=== PATIENT | male | born 1970 | race Caucasian/White ===

== ENCOUNTER 2017-02-26 13:45 | Inpatient (IN) | payer OTHER ==
[2017-02-26 18:08] VITALS: BMI 23.7
--- NOTE | 2017-02-26 19:32 | HP ---
COWS - Scale Resting Pulse: 0= [place] 80 or Below Sweatin= Chills/Flushing Restless Observation: 3= Extraneous Movement Pupil Size: 1= Pupils >than Normal Bone or Joint Aches: 2= Severe Diffuse Aches Runny Nose/ Eye Tearin= Runny Nose/Eyes GI Upset > 30mins: 2= Nausea/Diarrhea Tremor Observation: 2= Slight Tremor Visible Yawning Observation: 0= None Anxiety or Irritability: 2=Irritable/Anxious Goose Flesh Skin: 0=Smooth Skin COWS Score: 15 CIWA Score - CIWA Score Nausea/Vomitin-Mild Nausea/No Vomiting Muscle Tremors: 4-Moderate,w/Arms Extend Anxiety: 4-Mod. Anxious/Guarded Agitation: 4-Moderately Restless Paroxysmal Sweats: 1-Minimal Palms Moist Orientation: 3-Disoriented Date>2 days Tacttile Disturbances: 0-None Auditory Disturbances: 0-None Visual Disturbances: 0-None Headache: 1-Very Mild CIWA-Ar Total Score: 18 Admission ROS S - HPI Chief Complaint: withdrawal sx Allergies/Adverse Reactions: Allergies Allergy/AdvReac Type Severity Reaction Status Date / Time pantoprazole sodium Allergy Severe Difficulty Verified 02/26/17 18:26 [From Protonix] Breathing Iodinated Contrast Media - Allergy Intermediate Difficulty Verified 02/26/17 18: 26 Oral and Breathing History of Present Illness: 46 years old male with long history of alcohol, opiate cocaine nicotine dependence, has hypertension, hypercholesterol, asthma copd diabetes ii and bipolar chronic pancreatitis is admitted to detox Exam Limitations: No Limitations - Ebola screening Have you traveled outside of the country in the last 21 days: No (N) Have you had contact with anyone from an Ebola affected area: No Have you been sick,other than usual withdrawal symptoms: No Do you have a fever: No - Review of Systems Constitutional: Chills, Changes in sleep, Weight Stable EENT: reports: No Symptoms Reported Respiratory: reports: No Symptoms reported Cardiac: reports: No Symptoms Reported GI: reports: Diarrhea, Poor Appetite, Poor Fluid Intake, Indigestion, Abdominal cramping : reports: No Symptoms Reported Musculoskeletal: reports: Back Pain, Joint Pain, Muscle Pain, Neck Pain Integumentary: reports: No Symptoms Reported Neuro: reports: Tremors Endocrine: reports: No Symptoms Reported Hematology: reports: Blood Clots Psychiatric: reports: Judgement Intact Other Systems: Reviewed and Negative Patient History - Patient Medical History Hx Anemia: No Hx Asthma: Yes Hx Chronic Obstructive Pulmonary Disease (COPD): Yes Hx Cancer: No Hx Cardiac Disorders: No Hx Congestive Heart Failure: No Hx Hypertension: Yes Hx Hypercholesterolemia: Yes Hx Pacemaker: No HX Cerebrovascular Accident: No Hx Seizures: No Hx Dementia: No Hx Diabetes: Yes (IDDM) Hx Gastrointestinal Disorders: Yes (acid reflux) Hx Liver Disease: No Hx Genitourinary Disorders: No Hx Sexually Transmitted Disorders: No Hx Renal Disease (ESRD): No Hx Thyroid Disease: No Hx Human Immunodeficiency Virus (HIV): No (negative) Hx Hepatitis C: No (negative) Hx Depression: No Hx Suicide Attempt: No Hx Bipolar Disorder: Yes (AND ANXIETY) Hx Schizophrenia: No - Patient Surgical History Past Surgical History: Yes Hx Neurologic Surgery: No Hx Cataract Extraction: No Hx Cardiac Surgery: No Hx Lung Surgery: No Hx Breast Surgery: No Hx Breast Biopsy: No Hx Abdominal Surgery: Yes (splenectomy in 2008) Hx Appendectomy: No Hx Cholecystectomy: Yes (lap cholecystectomy in 2009) Hx Genitourinary Surgery: No Hx Orthopedic Surgery: Yes (left hip replacement 03/04) Other Surgical History: also had surgery of right hip in 2004,but has to be removed,limping on ambu Anesthesia Reaction: No - PPD History Previous Implant?: Yes Documented Results: Positive w/o proof Implanted On Prior R Admission?: No PPD to be Administered?: No - Smoking Cessation Smoking history: Current every day smoker Have you smoked in the past 12 months: Yes Aproximately how many cigarettes per day: 20 Cigars Per Day: 0 Hx Chewing Tobacco Use: No Initiated information on smoking cessation: Yes 'Breaking Loose' booklet given: 02/26/17 - Substance & Tx. History Hx Alcohol Use: Yes Hx Substance Use: Yes Substance Use Type: Alcohol, Cocaine, Opiates Hx Substance Use Treatment: Yes - Substances Abused Alcohol Route: Oral Frequency: Daily Amount used: LIQUOR- 1 PINT, BEER- 2 SIX PACK Age of first use: 40 Date of Last Use: 02/25/17 Heroin Route: Inhalation Frequency: Daily Amount used: 13 BAGS Age of first use: 40 Date of Last Use: 02/25/17 Cocaine Route: Inhalation Frequency: Daily Amount used: 2 BAGS Age of first use: 40 Date of Last Use: 02/25/17 Family Disease History - Family Disease History Family Disease History: Other: Father ( ), Mother (HTN, HYPERLIPIDIMIA) Admission Physical Exam [facility] - Vital Signs Vital Signs: Vital Signs - 24 hr 02/26/17 18:06 Temperature 98.4 F Pulse Rate 69 Respiratory 20 Rate Blood Pressure 156/81 - Physical General Appearance: Yes: Appropriately Dressed, Mild Distress, Thin, Tremorous, Irritable, Sweating, Anxious HEENTM: Yes: Hearing grossly Normal, Normal ENT Inspection, Normocephalic, Normal Voice Respiratory: Yes: Chest Non-Tender, No Respiratory Distress, No Accessory Muscle Use, Hyperresonant, Inspiration Neck: Yes: Supple, Trachea in good position Breast: Yes: Breasts Symetrical Cardiology: Yes: Regular Rhythm, Regular Rate, S1, S2 Abdominal: Yes: Non Tender, Soft, Increased Bowel Sounds Genitourinary: Yes: Within Normal Limits Back: Yes: Normal Inspection Musculoskeletal: Yes: Back pain, Muscle Pain Extremities: Yes: Non-Tender, Tremors, Other (right leg shorter than the left) Neurological: Yes: Alert, Normal Response, Depressed Affect Integumentary: Yes: Warm Lymphatic: Yes: Within Normal Limits - Diagnostic (1) Alcohol dependence with uncomplicated withdrawal Status: Acute (2) Opioid dependence with withdrawal Status: Acute (3) Asthma Status: Chronic (4) Essential hypertension Status: Chronic (5) Hypercholesterolemia Status: Chronic (6) Nicotine dependence Status: Acute Qualifiers: Nicotine product type: cigarettes Substance use status: in withdrawal Qualified Code(s): F17.213 - Nicotine dependence, cigarettes, with withdrawal (7) limping on ambulation Status: Chronic Comment: cane for ambulation (8) Positive PPD, treated Status: Resolved (9) Diabetes mellitus, type II, insulin dependent Status: Acute (10) COPD (chronic obstructive pulmonary disease) Status: Chronic Qualifiers: COPD type: emphysema Emphysema type: unilateral Qualified Code(s ): J43.0 - Unilateral pulmonary emphysema [MacLeod's syndrome] (11) GERD (gastroesophageal reflux disease) Status: Chronic Qualifiers: Esophagitis presence: without esophagitis Qualified Code(s): K21.9 - Gastro-esophageal reflux disease without esophagitis (12) Blood clot in vein Status: Acute (13) Bipolar II disorder Status: Suspected Cleared for Admission [facility] - Detox or Rehab [facility] Level of Care: Medically Managed Detox Regimen/Protocol: Methadone/Librium [facility] Breath Alcohol Content Breath Alcohol Content: 0 Urine Drug Screen - Results Drug Screen Negative: No Urine Drug Screen Results: GIACOMO-Cocaine, OPI-Opiates, MTD-Methadone
[2017-02-26] MEDS ORDERED: P-EPHED 60MG/TRIPROLIDI 2.5MG TABLET PO PRN (19:37)
[2017-02-26] MEDS ORDERED: MAG HYDROX/AL HYDROX/SIMETH 30 ML UNIT-DOSE CUP PO PRN (19:37)
[2017-02-26] MEDS ORDERED: NICOTINE POLACRILEX 4 MG GUM BC PRN (19:37)
[2017-02-26] MEDS ORDERED: LOPERAMIDE HCL 2 MG CAPSULE PO PRN (19:37)
[2017-02-26] MEDS ORDERED: MAGNESIUM CITRATE 300 ML BOTTLE PO PRN (19:37)
[2017-02-26] MEDS ORDERED: guaiFENesin/D-METHORPHAN HB 10 ML UNIT-DOSE CUPS PO PRN (19:37)
[2017-02-26] MEDS ORDERED: MENTHOL/PHENOL 1 EACH UD MM PRN (19:37)
[2017-02-26] MEDS ORDERED: METHADONE HCL 10 MG TABLET (FOR DETOX USE ONLY) PO ONE ×2 (19:37→23:00)
[2017-02-26] MEDS ORDERED: MAGNESIUM HYDROX 2400MG/30ML ORAL SUSPENSION 30 ML CUP PO PRN (19:37)
[2017-02-26] MEDS ORDERED: ALBUTEROL SO4 6.7 GM HFA INHALER IH PRN (19:39)
[2017-02-26] MEDS: amLODIPine BESYLATE 10 MG TABLET (FP) PO SCH (21:37)
[2017-02-26] MEDS: ENALAPRIL MALEATE 10 MG TABLET (FP) PO SCH (21:37)
[2017-02-26] MEDS: chlordiazePOXIDE HCL 25 MG CAPSULE PO PRN (21:37)
[2017-02-26] MEDS: ATORVASTATIN CA 40 MG TABLET (FP) PO SCH (22:28)
[2017-02-26] MEDS: APIXABAN 5 MG TABLET PO SCH (22:28)
[2017-02-26] MEDS: BUDESONIDE/FORMETEROL FUMARATE 80/4.5 mcg INHALER IH SCH (22:28)
[2017-02-26] MEDS: THIAMINE HCL 100 MG TABLET (FP) PO SCH (22:28)
[2017-02-26] MEDS: chlordiazePOXIDE HCL 25 MG CAPSULE PO SCH (22:28)
[2017-02-26] MEDS: INSULIN DETEMIR 100 UNITS/ML MDV SQ SCH (22:29)
[2017-02-26] MEDS: diphenhydrAMINE HCL 50 MG CAPSULE PO PRN (22:31)
[2017-02-26] MEDS: LIPASE/PROTEASE/AMYLASE 6,000 UNIT CAPSULE PO SCH (22:32)
[2017-02-26] MEDS: MONTELUKAST NA 5 MG TAB.CHEW PO SCH (22:32)
[2017-02-26] MEDS: INSULIN SLIDING SCALE (NOVOLOG) 1 VIAL SQ SCH (22:32)
[2017-02-26 23:26] LABS: URINE APPEARANCE CLEAR; URINE BILIRUBIN NEGATIVE (NEGATIVE); URINE BLOOD NEGATIVE (NEGATIVE); URINE COLOR LTYELLOW; URINE GLUCOSE (UA) NEGATIVE (NEGATIVE); URINE KETONE NEGATIVE (NEGATIVE); URINE LEUK ESTERASE NEGATIVE (NEGATIVE); URINE NITRITE NEGATIVE (NEGATIVE); URINE PROTEIN NEGATIVE (NEGATIVE); URINE UROBILINOGEN NEGATIVE E.U./dl (0.2-1.0)
[2017-02-27] MEDS: ACETAMINOPHEN 325 MG TABLET (FP) PO PRN ×2 (00:47→10:30)
[2017-02-27] MEDS: diphenhydrAMINE HCL 50 MG CAPSULE PO PRN (00:47)
[2017-02-27] MEDS: chlordiazePOXIDE HCL 25 MG CAPSULE PO SCH ×4 (05:27→22:15)
[2017-02-27] MEDS: glyBURIDE 5 MG TABLET (UD) PO SCH (07:43)
[2017-02-27] MEDS: INSULIN SLIDING SCALE (NOVOLOG) 1 VIAL SQ SCH ×4 (08:00→23:36)
[2017-02-27] MEDS ORDERED: METHADONE HCL 10 MG TABLET (FOR DETOX USE ONLY) PO SCH (10:00)
[2017-02-27 10:01] LABS: MCH 29.3 pg (25.7-33.7); MCHC 32.9 g/dl (32.0-35.9); MEAN PLT VOLUME 8.5 fl (7.5-11.1); PLATELET COUNT 422 K/MM3 (134-434); RDW 14.6 % (11.9-15.9); WHITE BLOOD COUNT 11.6 K/mm3 (4.0-10.0)
[2017-02-27] MEDS: ASPIRIN 81 MG CHEWABLE TABLETS PO SCH (10:22)
[2017-02-27] MEDS: LIPASE/PROTEASE/AMYLASE 6,000 UNIT CAPSULE PO SCH ×3 (10:23→17:15)
[2017-02-27] MEDS: ENALAPRIL MALEATE 10 MG TABLET (FP) PO SCH (10:27)
[2017-02-27] MEDS: BUDESONIDE/FORMETEROL FUMARATE 80/4.5 mcg INHALER IH SCH ×2 (10:27→22:15)
[2017-02-27] MEDS: PRENATAL VITAMINS W/ FOLIC ACID TABLET (FP) PO SCH (10:27)
[2017-02-27] MEDS: amLODIPine BESYLATE 10 MG TABLET (FP) PO SCH (10:29)
[2017-02-27] MEDS: NICOTINE 21 MG/24 HOURS TOPICAL PATCH TD SCH (10:29)
[2017-02-27] MEDS: APIXABAN 5 MG TABLET PO SCH ×2 (10:33→22:15)
[2017-02-27 10:48] LABS: ALBUMIN 3.7 g/dl (3.4-5.0); ALK PHOS 94 U/L (45-117); ANION GAP 12 (8-16); BILIRUBIN,TOTAL 0.2 mg/dL (0.2-1.0); CALCIUM 8.7 mg/dL (8.5-10.1); CO2 23 mmol/L (21-32); COCKROFT - GAULT 129.54; CREATININE 0.8 mg/dL (0.7-1.3); GLUCOSE,RANDOM 147 mg/dL (74-106); SGOT/AST 17 U/L (15-37); SGPT/ALT 30 U/L (12-78)
[2017-02-27] MEDS: CLOPIDOGREL BISULFATE 75 MG TABLET (FP) PO SCH (11:49)
[2017-02-27] MEDS ORDERED: INSULIN (NOVOLOG) ASPART 100 UNITS/ML 10ML VIAL ONE ×2 (12:24→23:36)
[2017-02-27] MEDS: CYCLOBENZAPRINE HCL 10 MG TABLET (FP) PO PRN ×2 (14:18→23:38)
[2017-02-27] MEDS: chlordiazePOXIDE HCL 25 MG CAPSULE PO PRN ×2 (14:53→19:30)
--- NOTE | 2017-02-27 16:11 | CONSULT ---
[facility] Psychiatric Consult - Data Date of interview: 02/27/17 Admission source: [facility] Identifying data: Another admission to [facility] for this 46 y/o male seeking detox treatment for heroin,cocaine and alcohol dependence.Patient is ,a father of four,domicled,unemployed and supported on SSI benefits. Substance Abuse History: - Smoking Cessation. Smoking history: Current every day smoker. Have you smoked in the past 12 months: Yes. Aproximately how many cigarettes per day: 20. Cigars Per Day: 0. Hx Chewing Tobacco Use: No. Initiated information on smoking cessation: Yes. 'Breaking Loose' booklet given : 02/26/17. - Substance & Tx. History. Hx Alcohol Use: Yes. Hx Substance Use : Yes. Substance Use Type: Alcohol, Cocaine, Opiates. Hx Substance Use Treatment: Yes. - Substances Abused. Alcohol. Route: Oral. Frequency: Daily. Amount used: LIQUOR- 1 PINT, BEER- 2 SIX PACK. Age of first use: 40. Date of Last Use: 02/25/17. Heroin. Route: Inhalation. Frequency: Daily. Amount used: 13 BAGS. Age of first use: 40. Date of Last Use: 02/25/17. Cocaine. Route: Inhalation. Frequency: Daily. Amount used: 2 BAGS. Age of first use: 40. Date of Last Use: 02/25/17. Confirmed by patient. Medical History: Osteoarthritis,history of pancreatitis,DVT,hypercholesterolemia ,bronchial asthma,GERD,diabetes mellitus and orthosurgery (left hip replacement and removal of right hip).Noted additional history of splenectomy (2008) and cholecystectomy.Patient walks with a pronounced limp. Psychiatric History: History of one psychiatric hospitalization at [facility] (years ago).Diagnosed with Bipolar Disorder.Still followed at [facility] OPD and maintained on depakote 500 mg po bid + seroquel 200 mg po am/ 400 mg po hs + ambien 10 mg po hs + clonazepam 1 mg po bid (self-report).Mr Wolff endorses a remote history of suicide attempts (cutting). Physical/Sexual Abuse/Trauma History: No history. Additional Comment: Urine Drug Screen Results: GIACOMO-Cocaine, OPI-Opiates, MTD- Methadone.Noted. Mental Status Exam - Mental Status Exam Alert and Oriented to: Time, Place, Person Cognitive Function: Good Patient Appearance: Well Groomed Mood: Nervous, Anxious, Apprehensive Affect: Mood Congruent Patient Behavior: Fatigued, Appropriate, Cooperative Speech Pattern: Clear Voice Loudness: Normal Thought Process: Goal Oriented Thought Disorder: Not Present Hallucinations: Denies Suicidal Ideation: Denies Homicidal Ideation: Denies Insight/Judgement: Poor Sleep: Poorly, Difficulty falling asleep Appetite: Good Gait/Station: Other (severe limp) Psychiatric Findings - Problem List ([place] 1, 2,3) (1) Alcohol dependence with uncomplicated withdrawal Current Visit: Yes Status: Acute (2) Opioid dependence with withdrawal Current Visit: Yes Status: Acute (3) Cocaine dependence Current Visit: Yes Status: Acute Qualifiers: Substance use status: uncomplicated Qualified Code(s): F14.20 - Cocaine dependence, uncomplicated (4) Nicotine dependence Current Visit: Yes Status: Acute Qualifiers: Nicotine product type: cigarettes Substance use status: in withdrawal Qualified Code(s): F17.213 - Nicotine dependence, cigarettes, with withdrawal (5) Substance induced mood disorder Current Visit: Yes Status: Acute (6) Bipolar disorder Current Visit: Yes Status: Chronic (7) Positive PPD, treated Current Visit: Yes Status: Resolved (8) Diabetes mellitus Current Visit: Yes Status: Chronic Qualifiers: Diabetes mellitus type: type 2 Diabetes mellitus complication status: without complication (9) Osteoarthritis Current Visit: Yes Status: Chronic (10) Pancreatitis Current Visit: Yes Status: Chronic (11) Asthma Current Visit: Yes Status: Chronic (12) COPD (chronic obstructive pulmonary disease) Current Visit: Yes Status: Chronic Qualifiers: COPD type: emphysema Emphysema type: unilateral Qualified Code(s ): J43.0 - Unilateral pulmonary emphysema [MacLeod's syndrome] (13) Essential hypertension Current Visit: Yes Status: Chronic (14) GERD (gastroesophageal reflux disease) Current Visit: Yes Status: Chronic Qualifiers: Esophagitis presence: without esophagitis Qualified Code(s): K21.9 - Gastro-esophageal reflux disease without esophagitis (15) Hypercholesterolemia Current Visit: Yes Status: Chronic (16) limping on ambulation Current Visit: Yes Status: Chronic Comment: cane for ambulation - Initial Treatment Plan Initial Treatment Plan: Old records are reviewed.Pharmacy claims revisited.Psychoeducation.Detoxification.Medications : seroquel 200 mg po hs + depakote 500 mg po bid + ambien 10 mg po hs.Side effects/benefits discussed with the patient.Labs checked.Current liver function allows maintenance treatment with valproate.Patient made aware of risk for oversedation/falls, liver dysfunction,abnormal involuntary movemnts,blood dyscrasias,weight gain, metabolic syndrome and parasomnias (ambien).He expresses his agreement with this plan of care.Observation.Valproic acic level is requested.Will follow results.
--- NOTE | 2017-02-27 16:14 | EKG ---
Test Reason : Blood Pressure : / mmHG Vent. Rate : 077 BPM Atrial Rate : 077 BPM P-R Int : 162 ms QRS Dur : 090 ms QT Int : 388 ms P-R-T Axes : 068 039 041 degrees QTc Int : 439 ms NORMAL SINUS RHYTHM MINIMAL VOLTAGE CRITERIA FOR LVH, MAY BE NORMAL VARIANT BORDERLINE ECG WHEN COMPARED WITH ECG OF 28-SEP-2013 07:27, LEFT BUNDLE BRANCH BLOCK IS NO LONGER PRESENT Confirmed by NAVI VIGIL, ANMOL ([id number]) on 02/27/2017 4:13:57 PM Referred By: Conrad Dolan Confirmed By:ANMOL MCELROY MD
--- NOTE | 2017-02-27 16:43 | PN ---
S CIWA - CIWA Score Nausea/Vomitin Muscle Tremors: 4-Moderate,w/Arms Extend Anxiety: 4-Mod. Anxious/Guarded Agitation: 4-Moderately Restless Paroxysmal Sweats: 3 Orientation: 0-Oriented Tacttile Disturbances: 2-Mild Itch/Numbness/Burn Auditory Disturbances: 1-Very Mild Visual Disturbances: 0-None Headache: 2-Mild CIWA-Ar Total Score: 23 BHS COWS - Scale Resting Pulse: 0= [place] 80 or Below Sweatin= Chills/Flushing Restless Observation: 1= Difficult to Sit Still Pupil Size: 0= Normal to Room Light Bone or Joint Aches: 2= Severe Diffuse Aches Runny Nose/ Eye Tearin= None GI Upset > 30mins: 2= Nausea/Diarrhea Tremor Observation of Outstretched Hands: 2= Slight Tremor Visible Yawning Observation: 0= None Anxiety or Irritability: 2=Irritable/Anxious Goose Flesh Skin: 3=Piloerection COWS Score: 13 S Progress Note (SOAP) Subjective: Nausea, Interrupted sleep, Stomach cramping, H/A, Body aches, Tremors. Objective: PT. A & O X 3, OBSERVED AMBULATING ON UNIT. 02/27/17 16:41 Vital Signs Temperature 96.5 F L 02/27/17 14:07 Pulse Rate 72 02/27/17 14:07 Respiratory Rate 18 02/27/17 14:07 Blood Pressure 118/67 02/27/17 14:07 O2 Sat by Pulse Oximetry (%) Laboratory Last Values WBC 11.6 K/mm3 (4.0-10.0) H 02/27/17 08:00 RBC 4.01 M/mm3 (4.00-5.60) 02/27/17 08:00 Hgb 11.8 GM/dL (11.7-16.9) 02/27/17 08:00 Hct 35.7 % (35.4-49) 02/27/17 08:00 MCV 89.0 fl (80-96) 02/27/17 08:00 MCHC 32.9 g/dl (32.0-35.9) 02/27/17 08:00 RDW 14.6 % (11.9-15.9) 02/27/17 08:00 Plt Count 422 K/MM3 (134-434) D 02/27/17 08:00 MPV 8.5 fl (7.5-11.1) 02/27/17 08:00 Sodium 140 mmol/L (136-145) 02/27/17 08:00 Potassium 4.3 mmol/L (3.5-5.1) 02/27/17 08:00 Chloride 105 mmol/L (98-107) 02/27/17 08:00 Carbon Dioxide 23 mmol/L (21-32) 02/27/17 08:00 Anion Gap 12 (8-16) 02/27/17 08:00 BUN 18 mg/dL (7-18) D 02/27/17 08:00 Creatinine 0.8 mg/dL (0.7-1.3) 02/27/17 08:00 Creat Clearance w eGFR > 60 (>60) 02/27/17 08:00 POC Glucometer 158 UNITS (()) 02/27/17 11:53 Random Glucose 147 mg/dL (74-106) H D 02/27/17 08:00 Calcium 8.7 mg/dL (8.5-10.1) 02/27/17 08:00 Total Bilirubin 0.2 mg/dL (0.2-1.0) D 02/27/17 08:00 AST 17 U/L (15-37) 02/27/17 08:00 ALT 30 U/L (12-78) D 02/27/17 08:00 Alkaline Phosphatase 94 U/L (45-117) 02/27/17 08:00 Total Protein 7.0 g/dl (6.4-8.2) 02/27/17 08:00 Albumin 3.7 g/dl (3.4-5.0) 02/27/17 08:00 Urine Color Ltyellow 02/26/17 22:06 Urine Appearance Clear 02/26/17 22:06 Urine pH 5.0 (5.0-8.0) 02/26/17 22:06 Ur Specific [place] 1.021 (1.001-1.035) 02/26/17 22:06 Urine Protein Negative (NEGATIVE) 02/26/17 22:06 Urine Glucose (UA) Negative (NEGATIVE) 02/26/17 22:06 Urine Ketones Negative (NEGATIVE) 02/26/17 22:06 Urine Blood Negative (NEGATIVE) 02/26/17 22:06 Urine Nitrite Negative (NEGATIVE) 02/26/17 22:06 Urine Bilirubin Negative (NEGATIVE) 02/26/17 22:06 Urine Urobilinogen Negative E.U./dl (0.2-1.0) 02/26/17 22:06 Ur Leukocyte Esterase Negative (NEGATIVE) 02/26/17 22:06 RPR Titer Nonreactive (NONREACTIVE) 02/27/17 08:00 LABS NOTED. Assessment: 02/27/17 16:42 WITHDRAWAL SYMPTOMS. Plan: CONTINUE DETOX. ADVISED PATIENT TO FOLLOW-UP WITH [facility] / REHAB MEDICAL PROVIDER AFTER DISCHARGE FROM DETOX FOR GENERAL MEDICAL ASSESSMENT AND FOR ABNORMAL ADMISSION LAB VALUES.
[2017-02-27] MEDS: QUEtiapine FUMARATE 200 MG TABLET PO SCH (22:15)
[2017-02-27] MEDS: DIVALPROEX SODIUM 500 MG TABLET E.C. PO SCH (22:15)
[2017-02-27] MEDS: THIAMINE HCL 100 MG TABLET (FP) PO SCH (22:15)
[2017-02-27] MEDS: ATORVASTATIN CA 40 MG TABLET (FP) PO SCH (22:15)
[2017-02-27] MEDS: ZOLPIDEM TARTRATE 10 MG TABLET (PARK CARE ONLY) PO PRN (22:18)
[2017-02-27] MEDS: INSULIN DETEMIR 100 UNITS/ML MDV SQ SCH (23:32)
[2017-02-27] MEDS: MONTELUKAST NA 5 MG TAB.CHEW PO SCH (23:33)
[2017-02-28] MEDS: chlordiazePOXIDE HCL 25 MG CAPSULE PO SCH ×3 (05:54→17:42)
[2017-02-28] MEDS ORDERED: INSULIN (NOVOLOG) ASPART 100 UNITS/ML 10ML VIAL ONE ×3 (06:49→17:25)
[2017-02-28] MEDS: INSULIN SLIDING SCALE (NOVOLOG) 1 VIAL SQ SCH ×4 (07:11→23:01)
[2017-02-28] MEDS: glyBURIDE 5 MG TABLET (UD) PO SCH (07:12)
[2017-02-28] MEDS: LIPASE/PROTEASE/AMYLASE 6,000 UNIT CAPSULE PO SCH ×3 (07:13→17:43)
[2017-02-28] MEDS ORDERED: METHADONE HCL 5 MG TABLET (FOR DETOX USE ONLY) PO SCH (10:00)
[2017-02-28] MEDS: ASPIRIN 81 MG CHEWABLE TABLETS PO SCH (10:11)
[2017-02-28] MEDS: DIVALPROEX SODIUM 500 MG TABLET E.C. PO SCH ×2 (10:11→22:53)
[2017-02-28] MEDS: ENALAPRIL MALEATE 10 MG TABLET (FP) PO SCH (10:11)
[2017-02-28] MEDS: PRENATAL VITAMINS W/ FOLIC ACID TABLET (FP) PO SCH (10:11)
[2017-02-28] MEDS: APIXABAN 5 MG TABLET PO SCH ×2 (10:11→22:53)
[2017-02-28] MEDS: NICOTINE 21 MG/24 HOURS TOPICAL PATCH TD SCH (10:12)
[2017-02-28] MEDS: amLODIPine BESYLATE 10 MG TABLET (FP) PO SCH (10:12)
[2017-02-28] MEDS: BUDESONIDE/FORMETEROL FUMARATE 80/4.5 mcg INHALER IH SCH ×2 (10:13→23:54)
[2017-02-28] MEDS: CLOPIDOGREL BISULFATE 75 MG TABLET (FP) PO SCH (10:13)
[2017-02-28] MEDS: chlordiazePOXIDE HCL 25 MG CAPSULE PO PRN (12:41)
[2017-02-28] MEDS: CYCLOBENZAPRINE HCL 10 MG TABLET (FP) PO PRN ×2 (12:49→19:53)
--- NOTE | 2017-02-28 13:27 | PN ---
S CIWA - CIWA Score Nausea/Vomitin Muscle Tremors: 4-Moderate,w/Arms Extend Anxiety: 4-Mod. Anxious/Guarded Agitation: 4-Moderately Restless Paroxysmal Sweats: No Perspiration Orientation: 0-Oriented Tacttile Disturbances: 1-Very Mild Itch/Numbness Auditory Disturbances: 0-None Visual Disturbances: 0-None Headache: 3-Moderate CIWA-Ar Total Score: 22 BHS COWS - Scale Resting Pulse: 1= [place] 81-100 Sweatin= Chills/Flushing Restless Observation: 3= Extraneous Movement Pupil Size: 0= Normal to Room Light Bone or Joint Aches: 2= Severe Diffuse Aches Runny Nose/ Eye Tearin= Runny Nose/Eyes GI Upset > 30mins: 2= Nausea/Diarrhea Tremor Observation of Outstretched Hands: 2= Slight Tremor Visible Yawning Observation: 1= 1-2x During Session Anxiety or Irritability: 2=Irritable/Anxious Goose Flesh Skin: 0=Smooth Skin COWS Score: 16 S Progress Note (SOAP) Subjective: Anxious, nausea, vomiting, tremor, chills, generalized body aches, sweating, interrupted sleep Objective: 02/28/17 13:27 Last Vital Signs Temp Pulse Resp BP Pulse Ox 98.2 F 84 18 133/76 02/28/17 10:00 02/28/17 10:00 02/28/17 10:00 02/28/17 10:00 Laboratory Tests 02/26/17 02/26/17 02/26/17 18:38 22:03 22:06 WBC RBC Hgb Hct MCV MCHC RDW Plt Count MPV Sodium Potassium Chloride Carbon Dioxide Anion Gap BUN Creatinine Creat Clearance w eGFR POC Glucometer 162 169 Random Glucose Calcium Total Bilirubin AST ALT Alkaline Phosphatase Total Protein Albumin Urine Color Ltyellow Urine Appearance Clear Urine pH 5.0 Ur Specific [place] 1.021 Urine Protein Negative Urine Glucose (UA) Negative Urine Ketones Negative Urine Blood Negative Urine Nitrite Negative Urine Bilirubin Negative Urine Urobilinogen Negative Ur Leukocyte Esterase Negative Valproic Acid RPR Titer 02/27/17 02/27/17 02/27/17 05:26 08:00 08:00 WBC 11.6 H RBC 4.01 Hgb 11.8 Hct 35.7 MCV 89.0 MCHC 32.9 RDW 14.6 Plt Count 422 D MPV 8.5 Sodium 140 Potassium 4.3 Chloride 105 Carbon Dioxide 23 Anion Gap 12 BUN 18 D Creatinine 0.8 Creat Clearance w eGFR > 60 POC Glucometer 140 Random Glucose 147 H D Calcium 8.7 Total Bilirubin 0.2 D AST 17 ALT 30 D Alkaline Phosphatase 94 Total Protein 7.0 Albumin 3.7 Urine Color Urine Appearance Urine pH Ur Specific [place] Urine Protein Urine Glucose (UA) Urine Ketones Urine Blood Urine Nitrite Urine Bilirubin Urine Urobilinogen Ur Leukocyte Esterase Valproic Acid RPR Titer 02/27/17 02/27/17 02/27/17 08:00 11:53 16:29 WBC RBC Hgb Hct MCV MCHC RDW Plt Count MPV Sodium Potassium Chloride Carbon Dioxide Anion Gap BUN Creatinine Creat Clearance w eGFR POC Glucometer 158 138 Random Glucose Calcium Total Bilirubin AST ALT Alkaline Phosphatase Total Protein Albumin Urine Color Urine Appearance Urine pH Ur Specific [place] Urine Protein Urine Glucose (UA) Urine Ketones Urine Blood Urine Nitrite Urine Bilirubin Urine Urobilinogen Ur Leukocyte Esterase Valproic Acid RPR Titer Nonreactive 02/27/17 02/28/17 02/28/17 22:12 05:54 08:00 WBC RBC Hgb Hct MCV MCHC RDW Plt Count MPV Sodium Potassium Chloride Carbon Dioxide Anion Gap BUN Creatinine Creat Clearance w eGFR POC Glucometer 160 155 Random Glucose Calcium Total Bilirubin AST ALT Alkaline Phosphatase Total Protein Albumin Urine Color Urine Appearance Urine pH Ur Specific [place] Urine Protein Urine Glucose (UA) Urine Ketones Urine Blood Urine Nitrite Urine Bilirubin Urine Urobilinogen Ur Leukocyte Esterase Valproic Acid < 3.000 L RPR Titer 02/28/17 11:48 WBC RBC Hgb Hct MCV MCHC RDW Plt Count MPV Sodium Potassium Chloride Carbon Dioxide Anion Gap BUN Creatinine Creat Clearance w eGFR POC Glucometer 262 Random Glucose Calcium Total Bilirubin AST ALT Alkaline Phosphatase Total Protein Albumin Urine Color Urine Appearance Urine pH Ur Specific [place] Urine Protein Urine Glucose (UA) Urine Ketones Urine Blood Urine Nitrite Urine Bilirubin Urine Urobilinogen Ur Leukocyte Esterase Valproic Acid RPR Titer Labs noted: WBC 11.6 Assessment: 02/28/17 13:29 Withdrawal symptoms Noted with mild leukocytosis Plan: Continue detox Leukocytosis: asymptomatic, repeat CBC
[2017-02-28] MEDS: ACETAMINOPHEN 325 MG TABLET (FP) PO PRN (17:12)
[2017-02-28 17:53] VITALS: TEMP 98.1
[2017-02-28 21:55] VITALS: BP 125/95; PULSE 80
[2017-02-28] MEDS: ZOLPIDEM TARTRATE 10 MG TABLET (PARK CARE ONLY) PO PRN (22:53)
[2017-02-28] MEDS: INSULIN DETEMIR 100 UNITS/ML MDV SQ SCH (22:53)
[2017-02-28] MEDS: ATORVASTATIN CA 40 MG TABLET (FP) PO SCH (22:53)
[2017-02-28] MEDS: QUEtiapine FUMARATE 200 MG TABLET PO SCH (22:53)
[2017-02-28] MEDS: THIAMINE HCL 100 MG TABLET (FP) PO SCH (22:53)
[2017-02-28] MEDS ORDERED: chlordiazePOXIDE 5 MG CAPSULE PO SCH (23:00)
[2017-02-28] MEDS: MONTELUKAST NA 5 MG TAB.CHEW PO SCH (23:54)
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
--- NOTE | 2017-02-28 23:59 | DS ---
[facility] Detox Discharge Summary Admission Date: 02/26/17 Discharge Date: 02/28/17 - History Present History: Alcohol Dependence, Opioid Dependence Pertinent Past History: HTN HLD DM GERD COPD NICOTINE DEP AMBULATES WITH LIMP ASTHMA - Physical Exam Results Vital Signs: Vital Signs Temperature 98.1 F 02/28/17 21:54 Pulse Rate 80 02/28/17 21:54 Respiratory Rate 20 02/28/17 21:54 Blood Pressure 125/95 02/28/17 21:54 O2 Sat by Pulse Oximetry (%) - Medication Discharge Medications: Ambulatory Orders Albuterol Sulfate Inhaler - [Ventolin HFA Inhaler -] 1 inh PRN 09/24/13 Amlodipine Besylate [Norvasc -] 10 mg PO DAILY 09/24/13 Glyburide 5 mg PO DAILY 09/24/13 Montelukast Na [Singulair -] 10 mg PO HS 09/24/13 Salmeterol/Fluticasone [Advair 250Mcg/50Mcg -] 1 inh PO BID 09/24/13 Zolpidem Tartrate [Ambien] 10 mg PO HS #30 07/14/14 Aspirin [ASA -] 81 mg PO DAILY 03/19/16 Clopidogrel Bisulfate [Plavix -] 75 mg PO DAILY 03/19/16 Enalapril Maleate [Vasotec] 20 mg PO DAILY 03/19/16 Insulin Glargine,Hum.rec.anlog [Lantus (nf)] 20 units SQ HS 03/19/16 Insulin Lispro [Humalog] 0 unit SQ BIDAC 03/19/16 Lipase/Protease/Amylase [Creon Dr 3,000 Units Capsule] 1 each PO TID 03/19/16 Atorvastatin Ca [Lipitor] 40 mg PO HS 09/07/16 Budesonide/Formeterol Fumarate [SYMBICORT 160/4.5mcg -] 1 inh PO BID 09/07/16 Divalproex [Depakote -] 500 mg PO BID #60 tablet.ec 09/08/16 Quetiapine Fumarate [Seroquel -] 200 mg PO AM #30 tablet 09/08/16 Quetiapine Fumarate [Seroquel -] 400 mg PO HS #30 tab 09/08/16 Apixaban [Eliquis -] 5 mg PO BID 02/26/17 Divalproex [Depakote -] 500 mg PO BID #30 tablet.ec 02/27/17 Quetiapine Fumarate [Seroquel] 300 mg PO HS #30 tablet 02/27/17 - Diagnosis (1) Alcohol dependence with uncomplicated withdrawal Current Visit: Yes Status: Acute (2) Diabetes mellitus, type II, insulin dependent Current Visit: Yes Status: Acute (3) Nicotine dependence Current Visit: Yes Status: Acute Qualifiers: Nicotine product type: cigarettes Substance use status: in withdrawal Qualified Code(s): F17.213 - Nicotine dependence, cigarettes, with withdrawal (4) Opioid dependence with withdrawal Current Visit: Yes Status: Acute (5) Asthma Current Visit: Yes Status: Chronic (6) COPD (chronic obstructive pulmonary disease) Current Visit: Yes Status: Chronic Qualifiers: COPD type: emphysema Emphysema type: unilateral Qualified Code(s ): J43.0 - Unilateral pulmonary emphysema [MacLeod's syndrome] (7) Diabetes mellitus Current Visit: Yes Status: Chronic Qualifiers: Diabetes mellitus type: type 2 Diabetes mellitus complication status: without complication (8) Essential hypertension Current Visit: Yes Status: Chronic (9) GERD (gastroesophageal reflux disease) Current Visit: Yes Status: Chronic Qualifiers: Esophagitis presence: without esophagitis Qualified Code(s): K21.9 - Gastro-esophageal reflux disease without esophagitis (10) Hypercholesterolemia Current Visit: Yes Status: Chronic (11) limping on ambulation Current Visit: Yes Status: Chronic (12) Bipolar II disorder Current Visit: Yes Status: Suspected (13) Positive PPD, treated Current Visit: Yes Status: Resolved - AMA Did Patient Leave Against Medical Advice: No (ADMINISTRATIVE DC)
[2017-03-01] MEDS ORDERED: chlordiazePOXIDE HCL 10 MG CAPSULE PO SCH (23:00)
[2017-03-02] MEDS ORDERED: METHADONE HCL 10 MG TABLET (FOR DETOX USE ONLY) PO SCH (10:00)
[2017-03-03] MEDS ORDERED: METHADONE HCL 5 MG TABLET (FOR DETOX USE ONLY) PO SCH (06:00)
== END 2017-02-28 23:50 | disposition home or self-care (01) | DRG 773 ==
LOC: YASAS 13:45 → Y6N 19:01
PROVIDERS: ADMIT Internal Medicine; ATTEND Internal Medicine
PROC: HZ2ZZZZ Detoxification Services for Substance Abuse Treatment (ICD-10-PCS; principal; 2017-02-28)
DX: F11.23 Opioid dependence with withdrawal (principal); F10.230 Alcohol dependence with withdrawal, uncomplicated; F17.213 Nicotine dependence, cigarettes, with withdrawal; F31.81 Bipolar II disorder; I10 Essential (primary) hypertension; E78.00 Pure hypercholesterolemia, unspecified; E11.9 Type 2 diabetes mellitus without complications; Z79.4 Long term (current) use of insulin; K21.9 Gastro-esophageal reflux disease without esophagitis; J45.909 Unspecified asthma, uncomplicated; J44.9 Chronic obstructive pulmonary disease, unspecified; R76.11 Nonspecific reaction to tuberculin skin test without active tuberculosis; R26.2 Difficulty in walking, not elsewhere classified; Z86.718 Personal history of other venous thrombosis and embolism
CPT/HCPCS: 36415; 80053; 80164; 81003; 85027; 86593; 93005; 93010

== ENCOUNTER 2022-05-19 11:15 | Inpatient (IN) | payer OTHER ==
[2022-05-19 11:48] VITALS: BMI 27.6
[2022-05-19] MEDS ORDERED: DICYCLOMINE HCL 10 MG CAPSULE PO PRN (12:21)
[2022-05-19] MEDS ORDERED: LOPERAMIDE HCL 2 MG CAPSULE PO PRN (12:21)
[2022-05-19] MEDS ORDERED: MAG HYDROX/AL HYDROX/SIMETH 30 ML UNIT-DOSE CUP PO PRN (12:21)
[2022-05-19] MEDS ORDERED: ACETAMINOPHEN 325 MG TABLET (FP) PO PRN ×2 (12:21)
[2022-05-19] MEDS ORDERED: NICOTINE 10 MG CARTRIDGE (INHALER) IH PRN (12:21)
[2022-05-19] MEDS ORDERED: chlordiazePOXIDE HCL 25 MG CAPSULE PO PRN (12:21)
[2022-05-19] MEDS ORDERED: BENZOCAINE/MENTHOL (CHLORASEPTIC ) LOZENGE MM PRN (12:21)
[2022-05-19] MEDS ORDERED: NALOXONE HCL (KLOXXADO) 8 MG SPRAY NS PRN (12:21)
[2022-05-19] MEDS ORDERED: IBUPROFEN 400 MG TABLET (FP) PO PRN (12:21)
[2022-05-19] MEDS ORDERED: IBUPROFEN 600 MG TABLET (FP) PO PRN (12:21)
[2022-05-19] MEDS ORDERED: cloNIDine HCL 0.1 MG TABLET PO PRN (12:21)
[2022-05-19] MEDS ORDERED: BISMUTH SUBSALICYLATE 262 MG/15 ML BTL PO PRN (12:21)
[2022-05-19] MEDS ORDERED: MAGNESIUM HYDROX 2400MG/30ML ORAL SUSPENSION 30 ML CUP PO PRN (12:21)
[2022-05-19] MEDS ORDERED: MAGNESIUM CITRATE 300 ML BOTTLE PO PRN (12:21)
[2022-05-19] MEDS ORDERED: methaDONE HCL 10 MG TABLET (FOR DETOX USE ONLY) PO ONE (12:21)
[2022-05-19] MEDS ORDERED: ONDANSETRON *ODT* 4 MG TABLET SL PRN (12:21)
[2022-05-19] MEDS ORDERED: methaDONE HCL 10 MG TABLET (FOR DETOX USE ONLY) ONE (12:45)
[2022-05-19] MEDS ORDERED: NICOTINE 21 MG/24 HOURS TOPICAL PATCH ONE (12:45)
[2022-05-19] MEDS: NICOTINE 21 MG/24 HOURS TOPICAL PATCH TD SCH (12:54)
[2022-05-19] MEDS: METHOCARBAMOL 500 MG TABLET PO PRN (13:03)
[2022-05-19] MEDS: hydrOXYzine PAMOATE 25 MG CAPSULE (FP) PO SCH ×3 (13:03→23:53)
[2022-05-19 17:35] LABS: HEMATOCRIT 32.4 % (35.4-49); HEMOGLOBIN 10.7 GM/dL (11.7-16.9); MCH 28.7 pg (25.7-33.7); MCHC 33.1 g/dl (32.0-35.9); MEAN CELL VOLUME 86.8 fl (80-96); MEAN PLT VOLUME 8.2 fl (7.5-11.1); PLATELET COUNT 605 10^3/uL (134-434); RBC 3.74 M/mm3 (4.00-5.60); RDW 15.9 % (11.9-15.9)
[2022-05-19 17:41] LABS: ALBUMIN 3.7 g/dl (3.4-5.0); CALCIUM 9.2 mg/dL (8.5-10.1)
[2022-05-19 17:42] LABS: BLOOD UREA NITROGEN 21.8 mg/dL (7-18)
[2022-05-19 17:44] LABS: CREATININE 0.9 mg/dL (0.55-1.3)
[2022-05-19 17:46] LABS: BILIRUBIN,TOTAL 0.2 mg/dL (0.2-1); TOT PROT 8.4 g/dl (6.4-8.2)
[2022-05-19] MEDS: INSULIN SLIDING SCALE (NOVOLOG) 1 VIAL SQ SCH (18:28)
[2022-05-19] MEDS: chlordiazePOXIDE HCL 25 MG CAPSULE PO SCH ×2 (18:51→23:53)
[2022-05-19] MEDS: THIAMINE HCL 100 MG TABLET (FP) PO SCH (23:53)
[2022-05-19] MEDS: MELATONIN 5 MG TABLETS PO SCH (23:53)
[2022-05-20] MEDS: chlordiazePOXIDE HCL 25 MG CAPSULE PO SCH ×4 (05:33→22:08)
[2022-05-20] MEDS: hydrOXYzine PAMOATE 25 MG CAPSULE (FP) PO SCH ×5 (05:33→22:07)
[2022-05-20] MEDS: INSULIN SLIDING SCALE (NOVOLOG) 1 VIAL SQ SCH ×2 (08:00→17:07)
[2022-05-20] MEDS ORDERED: methaDONE HCL 10 MG TABLET (FOR DETOX USE ONLY) ONE (09:25)
[2022-05-20] MEDS: PRENATAL VITAMINS W/ FOLIC ACID TABLET (FP) PO SCH (10:14)
[2022-05-20] MEDS: NICOTINE 21 MG/24 HOURS TOPICAL PATCH TD SCH (10:16)
[2022-05-20] MEDS ORDERED: ALBUTEROL SO4 HFA INHALER IH PRN (12:43)
[2022-05-20] MEDS ORDERED: amLODIPine BESYLATE 2.5 MG TABLET (FP) PO SCH (13:00)
[2022-05-20] MEDS: ASPIRIN 81 MG CHEWABLE TABLETS PO SCH (13:18)
[2022-05-20] MEDS: amLODIPine BESYLATE 10 MG TABLET (FP) PO SCH (13:18)
[2022-05-20] MEDS: TAMSULOSIN HCL 0.4 MG CAP PO SCH (13:18)
[2022-05-20] MEDS: METHOCARBAMOL 500 MG TABLET PO PRN (17:02)
[2022-05-20] MEDS: APIXABAN 5 MG TABLET PO SCH (22:06)
[2022-05-20] MEDS: THIAMINE HCL 100 MG TABLET (FP) PO SCH (22:06)
[2022-05-20] MEDS: MONTELUKAST NA 10 MG TABLET PO SCH (22:07)
[2022-05-20] MEDS: MELATONIN 5 MG TABLETS PO SCH (22:07)
[2022-05-20] MEDS: INSULIN (LEVEMIR) 100 UNITS/ML UNITS SQ SCH (22:11)
[2022-05-21] MEDS: hydrOXYzine PAMOATE 25 MG CAPSULE (FP) PO SCH ×5 (05:43→22:05)
[2022-05-21] MEDS: chlordiazePOXIDE HCL 25 MG CAPSULE PO SCH ×4 (05:43→22:20)
[2022-05-21] MEDS: glyBURIDE 5 MG TABLET PO SCH (07:00)
[2022-05-21] MEDS: INSULIN SLIDING SCALE (NOVOLOG) 1 VIAL SQ SCH ×4 (08:04→22:20)
[2022-05-21] MEDS ORDERED: methaDONE HCL 10 MG TABLET (FOR DETOX USE ONLY) PO ONE ×2 (10:00)
[2022-05-21] MEDS: ASPIRIN 81 MG CHEWABLE TABLETS PO SCH (10:21)
[2022-05-21] MEDS: METHOCARBAMOL 500 MG TABLET PO PRN (10:21)
[2022-05-21] MEDS: APIXABAN 5 MG TABLET PO SCH ×2 (10:22→22:05)
[2022-05-21] MEDS: PRENATAL VITAMINS W/ FOLIC ACID TABLET (FP) PO SCH (10:22)
[2022-05-21] MEDS: amLODIPine BESYLATE 10 MG TABLET (FP) PO SCH (10:22)
[2022-05-21] MEDS: TAMSULOSIN HCL 0.4 MG CAP PO SCH (10:22)
[2022-05-21] MEDS: NICOTINE 21 MG/24 HOURS TOPICAL PATCH TD SCH (10:37)
[2022-05-21] MEDS ORDERED: INSULIN (NOVOLOG) ASPART 100 UNITS/ML 10ML VIAL ONE ×3 (16:58→22:01)
[2022-05-21] MEDS ORDERED: SUVOREXANT 10 MG TABLET PO PRN (22:00)
[2022-05-21] MEDS: THIAMINE HCL 100 MG TABLET (FP) PO SCH (22:05)
[2022-05-21] MEDS: MONTELUKAST NA 10 MG TABLET PO SCH (22:06)
[2022-05-21] MEDS: INSULIN (LEVEMIR) 100 UNITS/ML UNITS SQ SCH (22:21)
[2022-05-21] MEDS: MELATONIN 5 MG TABLETS PO SCH (22:21)
[2022-05-22] MEDS ORDERED: chlordiazePOXIDE HCL 10 MG CAPSULE PO PRN
[2022-05-22] MEDS: hydrOXYzine PAMOATE 25 MG CAPSULE (FP) PO SCH ×5 (05:43→21:59)
[2022-05-22] MEDS: chlordiazePOXIDE HCL 10 MG CAPSULE PO SCH ×4 (05:43→21:59)
[2022-05-22] MEDS ORDERED: INSULIN (NOVOLOG) ASPART 100 UNITS/ML 10ML VIAL ONE ×3 (05:47→22:06)
[2022-05-22] MEDS: glyBURIDE 5 MG TABLET PO SCH (07:27)
[2022-05-22] MEDS: INSULIN SLIDING SCALE (NOVOLOG) 1 VIAL SQ SCH ×4 (07:27→22:07)
[2022-05-22 10:22] LABS: BASO % 1.4 % (0-2.0); EOS % 5.8 % (0-4.5); HEMATOCRIT 32.1 % (35.4-49); HEMOGLOBIN 10.6 GM/dL (11.7-16.9); MCHC 33.2 g/dl (32.0-35.9); MEAN CELL VOLUME 87.5 fl (80-96); MEAN PLT VOLUME 9.2 fl (7.5-11.1); MONO % 6.8 % (3.8-10.2); PLATELET COUNT 586 10^3/uL (134-434); RBC 3.67 M/mm3 (4.00-5.60); RDW 16.4 % (11.9-15.9)
[2022-05-22] MEDS: APIXABAN 5 MG TABLET PO SCH ×2 (10:34→22:01)
[2022-05-22] MEDS: ASPIRIN 81 MG CHEWABLE TABLETS PO SCH (10:34)
[2022-05-22] MEDS: METHOCARBAMOL 500 MG TABLET PO PRN ×2 (10:34→22:00)
[2022-05-22] MEDS: TAMSULOSIN HCL 0.4 MG CAP PO SCH (10:34)
[2022-05-22] MEDS: PRENATAL VITAMINS W/ FOLIC ACID TABLET (FP) PO SCH (10:34)
[2022-05-22] MEDS: amLODIPine BESYLATE 10 MG TABLET (FP) PO SCH (10:34)
[2022-05-22] MEDS: NICOTINE 21 MG/24 HOURS TOPICAL PATCH TD SCH (10:35)
[2022-05-22] MEDS: THIAMINE HCL 100 MG TABLET (FP) PO SCH (22:00)
[2022-05-22] MEDS: MONTELUKAST NA 10 MG TABLET PO SCH (22:01)
[2022-05-22] MEDS: MELATONIN 5 MG TABLETS PO SCH (22:01)
[2022-05-22] MEDS: INSULIN (LEVEMIR) 100 UNITS/ML UNITS SQ SCH (22:07)
[2022-05-23] MEDS ORDERED: chlordiazePOXIDE HCL 10 MG CAPSULE PO SCH (05:00)
[2022-05-23] MEDS: hydrOXYzine PAMOATE 25 MG CAPSULE (FP) PO SCH ×2 (05:44→10:04)
[2022-05-23 06:30] VITALS: TEMP 98.2
[2022-05-23] MEDS: glyBURIDE 5 MG TABLET PO SCH (06:50)
[2022-05-23] MEDS: INSULIN SLIDING SCALE (NOVOLOG) 1 VIAL SQ SCH ×2 (07:39→10:04)
[2022-05-23] MEDS ORDERED: INSULIN (NOVOLOG) ASPART 100 UNITS/ML 10ML VIAL ONE (07:41)
[2022-05-23 09:18] VITALS: BP 158/88; PULSE 73
[2022-05-23] MEDS ORDERED: methaDONE HCL 10 MG TABLET (FOR DETOX USE ONLY) PO ONE ×2 (10:00)
[2022-05-23] MEDS: TAMSULOSIN HCL 0.4 MG CAP PO SCH (10:01)
[2022-05-23] MEDS: APIXABAN 5 MG TABLET PO SCH (10:01)
[2022-05-23] MEDS: ASPIRIN 81 MG CHEWABLE TABLETS PO SCH (10:01)
[2022-05-23] MEDS: METHOCARBAMOL 500 MG TABLET PO PRN (10:01)
[2022-05-23] MEDS: amLODIPine BESYLATE 10 MG TABLET (FP) PO SCH (10:01)
[2022-05-23] MEDS: NICOTINE 21 MG/24 HOURS TOPICAL PATCH TD SCH (10:02)
[2022-05-23] MEDS: PRENATAL VITAMINS W/ FOLIC ACID TABLET (FP) PO SCH (10:02)
[2022-05-24] MEDS ORDERED: chlordiazePOXIDE HCL 10 MG CAPSULE PO ONE (05:00)
== END 2022-05-23 10:40 | disposition home or self-care (01) | DRG 773 ==
LOC: YASAS 11:15 → Y6N 12:34
PROVIDERS: ADMIT Allergy & Immunology; ATTEND Surgery
PROC: HZ2ZZZZ Detoxification Services for Substance Abuse Treatment (ICD-10-PCS; principal; 2022-05-19)
DX: F11.23 Opioid dependence with withdrawal (principal); F10.230 Alcohol dependence with withdrawal, uncomplicated; F14.20 Cocaine dependence, uncomplicated; F17.213 Nicotine dependence, cigarettes, with withdrawal; F31.9 Bipolar disorder, unspecified; F19.24 Other psychoactive substance dependence with psychoactive substance-induced mood disorder; F19.282 Other psychoactive substance dependence with psychoactive substance-induced sleep disorder; F19.280 Other psychoactive substance dependence with psychoactive substance-induced anxiety disorder; I10 Essential (primary) hypertension; J43.1 Panlobular emphysema; E11.65 Type 2 diabetes mellitus with hyperglycemia; K21.9 Gastro-esophageal reflux disease without esophagitis; E78.5 Hyperlipidemia, unspecified; M19.90 Unspecified osteoarthritis, unspecified site; I45.81 Long QT syndrome; R26.2 Difficulty in walking, not elsewhere classified; Z88.8 Allergy status to other drugs, medicaments and biological substances; Z96.642 Presence of left artificial hip joint; Z86.718 Personal history of other venous thrombosis and embolism; Z79.4 Long term (current) use of insulin; Z79.01 Long term (current) use of anticoagulants; Z79.82 Long term (current) use of aspirin; Z56.0 Unemployment, unspecified; Z59.00 Homelessness unspecified
CPT/HCPCS: 36415; 71046-TC-FY; 80053; 82962; 83036; 85025; 85027; 86780; 87811; 93005; 93010; C9803-CS; J0735; U0003; U0005

== ENCOUNTER 2023-04-29 12:35 | Inpatient (IN) | payer OTHER ==
[2023-04-29 14:06] VITALS: BMI 24.8
[2023-04-29] MEDS ORDERED: BENZOCAINE/MENTHOL (CHLORASEPTIC ) LOZENGE MM PRN (15:30)
[2023-04-29] MEDS ORDERED: DICYCLOMINE HCL 10 MG CAPSULE PO PRN (15:30)
[2023-04-29] MEDS ORDERED: MAGNESIUM HYDROX 2400MG/30ML ORAL SUSPENSION 30 ML CUP PO PRN (15:30)
[2023-04-29] MEDS ORDERED: guaiFENesin 600 MG TABLET.ER (FP) PO PRN (15:30)
[2023-04-29] MEDS ORDERED: LOPERAMIDE HCL 2 MG CAPSULE PO PRN (15:30)
[2023-04-29] MEDS ORDERED: NALOXONE HCL 0.4 MG/ML VIAL IM PRN (15:30)
[2023-04-29] MEDS ORDERED: IBUPROFEN 600 MG TABLET (FP) PO PRN (15:30)
[2023-04-29] MEDS ORDERED: MAG HYDROX/AL HYDROX/SIMETH 30 ML UNIT-DOSE CUP PO PRN (15:30)
[2023-04-29] MEDS ORDERED: NICOTINE 10 MG CARTRIDGE (INHALER) IH PRN (15:30)
[2023-04-29] MEDS ORDERED: ONDANSETRON *ODT* 4 MG TABLET SL PRN (15:30)
[2023-04-29] MEDS ORDERED: POLYETHYLENE GLYCOL (HEALTHYLAX) 3350 17 GM PACKET PO PRN (15:30)
[2023-04-29] MEDS ORDERED: NALOXONE HCL (KLOXXADO) 8 MG SPRAY NS PRN (15:30)
[2023-04-29] MEDS ORDERED: BENZONATATE 200 MG CAPSULE PO PRN (15:30)
[2023-04-29] MEDS ORDERED: ACETAMINOPHEN 325 MG TABLET (FP) PO PRN (15:30)
[2023-04-29] MEDS ORDERED: IBUPROFEN 400 MG TABLET (FP) PO PRN (15:30)
[2023-04-29] MEDS ORDERED: BISMUTH SUBSALICYLATE 262 MG/15 ML BTL PO PRN (15:30)
[2023-04-29] MEDS ORDERED: ALBUTEROL SO4 HFA INHALER IH PRN (15:35)
[2023-04-29] MEDS: diazePAM 5 MG TABLET PO SCH ×2 (17:58→22:09)
[2023-04-29] MEDS: TAMSULOSIN HCL 0.4 MG CAP PO SCH (17:58)
[2023-04-29] MEDS: PRENATAL VITAMINS W/ FOLIC ACID TABLET (FP) PO SCH (18:00)
[2023-04-29] MEDS: NICOTINE 14 MG/24 HOURS TOPICAL PATCH TD SCH (18:00)
[2023-04-29] MEDS ORDERED: MELATONIN 5 MG TABLETS PO SCH (22:00)
[2023-04-29] MEDS: THIAMINE HCL 100 MG TABLET (FP) PO SCH (22:09)
[2023-04-29] MEDS: GABAPENTIN 300 MG CAPSULE PO SCH (22:09)
[2023-04-29] MEDS: MONTELUKAST NA 10 MG TABLET PO SCH (22:09)
[2023-04-29] MEDS: APIXABAN 5 MG TABLET PO SCH (22:09)
[2023-04-29] MEDS: QUEtiapine FUMARATE 100 MG TABLET (FP) PO SCH (22:09)
[2023-04-30] MEDS: diazePAM 5 MG TABLET PO SCH ×4 (05:15→22:08)
[2023-04-30] MEDS ORDERED: methaDONE HCL 10 MG TABLET PO SCH (07:30)
[2023-04-30] MEDS: TAMSULOSIN HCL 0.4 MG CAP PO SCH (10:13)
[2023-04-30] MEDS: PRENATAL VITAMINS W/ FOLIC ACID TABLET (FP) PO SCH (10:13)
[2023-04-30] MEDS: glyBURIDE 5 MG TABLET PO SCH (10:13)
[2023-04-30] MEDS: ENALAPRIL MALEATE 10 MG TABLET PO SCH (10:13)
[2023-04-30] MEDS: ASPIRIN 81 MG CHEWABLE TABLETS PO SCH (10:14)
[2023-04-30] MEDS: APIXABAN 5 MG TABLET PO SCH ×2 (10:14→22:05)
[2023-04-30] MEDS: METHOCARBAMOL 500 MG TABLET PO PRN (10:14)
[2023-04-30] MEDS: hydrOXYzine PAMOATE 25 MG CAPSULE (FP) PO PRN (10:14)
[2023-04-30] MEDS: amLODIPine BESYLATE 10 MG TABLET (FP) PO SCH (10:14)
[2023-04-30] MEDS: NICOTINE 14 MG/24 HOURS TOPICAL PATCH TD SCH (10:15)
[2023-04-30 11:58] LABS: POTASSIUM 4.1 mmol/L (3.5-5.1)
[2023-04-30 12:00] LABS: BLOOD UREA NITROGEN 18.8 mg/dL (7-18); CALCIUM 9.2 mg/dL (8.5-10.1)
[2023-04-30 12:06] LABS: BILIRUBIN,TOTAL 0.2 mg/dL (0.2-1); TOT PROT 7.3 g/dl (6.4-8.2)
[2023-04-30 12:17] LABS: HEMATOCRIT 34.6 % (35.4-49); HEMOGLOBIN 11.5 GM/dL (11.7-16.9); MCH 30.2 pg (25.7-33.7); MCHC 33.1 g/dl (32.0-35.9); MEAN PLT VOLUME 9.6 fl (7.5-11.1); PLATELET COUNT 519 10^3/uL (134-434); RDW 14.7 % (11.9-15.9); WHITE BLOOD COUNT 9.9 K/mm3 (4.0-10.0)
[2023-04-30] MEDS ORDERED: INSULIN (NOVOLOG) ASPART 100 UNITS/ML 10ML VIAL ONE (17:16)
[2023-04-30] MEDS: LACTULOSE 20 GM/30 ML UDC (FOR ORAL USE ONLY) PO SCH ×2 (17:23→23:20)
[2023-04-30] MEDS: INSULIN (NOVOLOG) ASPART 100 UNITS/ML 10ML VIAL SQ SCH ×2 (17:24→22:35)
[2023-04-30] MEDS: MONTELUKAST NA 10 MG TABLET PO SCH (22:05)
[2023-04-30] MEDS: GABAPENTIN 300 MG CAPSULE PO SCH (22:05)
[2023-04-30] MEDS: THIAMINE HCL 100 MG TABLET (FP) PO SCH (22:05)
[2023-04-30] MEDS: QUEtiapine FUMARATE 100 MG TABLET (FP) PO SCH (23:30)
[2023-05-01] MEDS: diazePAM 5 MG TABLET PO PRN ×2 (02:32→10:07)
[2023-05-01] MEDS: diazePAM 5 MG TABLET PO SCH ×3 (05:23→22:05)
[2023-05-01] MEDS ORDERED: methaDONE HCL 10 MG TABLET PO SCH (06:00)
[2023-05-01] MEDS: INSULIN (NOVOLOG) ASPART 100 UNITS/ML 10ML VIAL SQ SCH ×4 (07:04→22:06)
[2023-05-01] MEDS: ENALAPRIL MALEATE 10 MG TABLET PO SCH (10:05)
[2023-05-01] MEDS: PRENATAL VITAMINS W/ FOLIC ACID TABLET (FP) PO SCH (10:05)
[2023-05-01] MEDS: LACTULOSE 20 GM/30 ML UDC (FOR ORAL USE ONLY) PO SCH ×4 (10:06→22:05)
[2023-05-01] MEDS: NICOTINE 14 MG/24 HOURS TOPICAL PATCH TD SCH (10:06)
[2023-05-01] MEDS: ASPIRIN 81 MG CHEWABLE TABLETS PO SCH (10:06)
[2023-05-01] MEDS: APIXABAN 5 MG TABLET PO SCH ×2 (10:06→22:05)
[2023-05-01] MEDS: TAMSULOSIN HCL 0.4 MG CAP PO SCH (10:06)
[2023-05-01] MEDS: amLODIPine BESYLATE 10 MG TABLET (FP) PO SCH (10:06)
[2023-05-01] MEDS: glyBURIDE 5 MG TABLET PO SCH (10:07)
[2023-05-01] MEDS: hydrOXYzine PAMOATE 25 MG CAPSULE (FP) PO PRN (13:10)
[2023-05-01] MEDS: METHOCARBAMOL 500 MG TABLET PO PRN (13:10)
[2023-05-01] MEDS: QUEtiapine FUMARATE 100 MG TABLET (FP) PO SCH (22:05)
[2023-05-01] MEDS: GABAPENTIN 300 MG CAPSULE PO SCH (22:05)
[2023-05-01] MEDS: MONTELUKAST NA 10 MG TABLET PO SCH (22:05)
[2023-05-01] MEDS: THIAMINE HCL 100 MG TABLET (FP) PO SCH (22:06)
[2023-05-02] MEDS: diazePAM 5 MG TABLET PO SCH ×2 (05:36→17:07)
[2023-05-02] MEDS: INSULIN (NOVOLOG) ASPART 100 UNITS/ML 10ML VIAL SQ SCH ×3 (06:44→17:08)
[2023-05-02] MEDS ORDERED: LANTUS 15 UNIT PO SCH (10:00)
[2023-05-02] MEDS: amLODIPine BESYLATE 10 MG TABLET (FP) PO SCH (10:41)
[2023-05-02] MEDS: LACTULOSE 20 GM/30 ML UDC (FOR ORAL USE ONLY) PO SCH ×4 (10:41→22:25)
[2023-05-02] MEDS: PRENATAL VITAMINS W/ FOLIC ACID TABLET (FP) PO SCH (10:41)
[2023-05-02] MEDS: APIXABAN 5 MG TABLET PO SCH ×2 (10:41→22:25)
[2023-05-02] MEDS: ENALAPRIL MALEATE 10 MG TABLET PO SCH (10:41)
[2023-05-02] MEDS: ASPIRIN 81 MG CHEWABLE TABLETS PO SCH (10:41)
[2023-05-02] MEDS: METHOCARBAMOL 500 MG TABLET PO PRN (10:41)
[2023-05-02] MEDS: glyBURIDE 5 MG TABLET PO SCH (10:41)
[2023-05-02] MEDS: NICOTINE 14 MG/24 HOURS TOPICAL PATCH TD SCH (10:41)
[2023-05-02] MEDS: TAMSULOSIN HCL 0.4 MG CAP PO SCH (10:41)
[2023-05-02] MEDS: hydrOXYzine PAMOATE 25 MG CAPSULE (FP) PO PRN (10:42)
[2023-05-02] MEDS ORDERED: QUEtiapine FUMARATE 50 MG TABLET ONE (21:11)
[2023-05-02] MEDS ORDERED: PATIENT'S OWN MEDICATION (NON-FORMULARY) (Insulin Glargine,Hum.Rec.Anlog 100 UNITS/ML Vial SQ SCH (22:00)
[2023-05-02] MEDS ORDERED: LEVEMIR 15 UNIT SQ SCH (22:00)
[2023-05-02] MEDS ORDERED: INSULIN (LEVEMIR) 100 UNITS/ML UNITS SQ SCH (22:00)
[2023-05-02] MEDS: GABAPENTIN 300 MG CAPSULE PO SCH (22:25)
[2023-05-02] MEDS: THIAMINE HCL 100 MG TABLET (FP) PO SCH (22:25)
[2023-05-02] MEDS: MONTELUKAST NA 10 MG TABLET PO SCH (22:25)
[2023-05-02] MEDS: QUEtiapine FUMARATE 100 MG TABLET (FP) PO SCH (22:25)
[2023-05-03] MEDS ORDERED: diazePAM 5 MG TABLET PO ONE (06:00)
[2023-05-03] MEDS: INSULIN (NOVOLOG) ASPART 100 UNITS/ML 10ML VIAL SQ SCH ×3 (06:48→17:23)
[2023-05-03] MEDS: LACTULOSE 20 GM/30 ML UDC (FOR ORAL USE ONLY) PO SCH ×3 (10:45→17:22)
[2023-05-03] MEDS: TAMSULOSIN HCL 0.4 MG CAP PO SCH (10:45)
[2023-05-03] MEDS: PRENATAL VITAMINS W/ FOLIC ACID TABLET (FP) PO SCH (10:45)
[2023-05-03] MEDS: ENALAPRIL MALEATE 10 MG TABLET PO SCH (10:46)
[2023-05-03] MEDS: APIXABAN 5 MG TABLET PO SCH (10:46)
[2023-05-03] MEDS: amLODIPine BESYLATE 10 MG TABLET (FP) PO SCH (10:46)
[2023-05-03] MEDS: ASPIRIN 81 MG CHEWABLE TABLETS PO SCH (10:46)
[2023-05-03] MEDS: glyBURIDE 5 MG TABLET PO SCH (10:46)
[2023-05-03] MEDS: NICOTINE 14 MG/24 HOURS TOPICAL PATCH TD SCH (10:47)
[2023-05-03] MEDS ORDERED: QUEtiapine FUMARATE 300 MG TABLET PO SCH (12:29)
[2023-05-03 16:48] VITALS: BP 102/58; PULSE 69; RESP 18
[2023-05-03] MEDS ORDERED: INSULIN (NOVOLOG) ASPART 100 UNITS/ML 10ML VIAL ONE (17:21)
[2023-05-03 18:39] VITALS: TEMP 97.1
== END 2023-05-03 18:28 | disposition other institution (70) | DRG 773 ==
LOC: YASAS 12:35 → Y6N 16:30
PROVIDERS: ADMIT Allergy & Immunology; ATTEND Surgery
PROC: HZ2ZZZZ Detoxification Services for Substance Abuse Treatment (ICD-10-PCS; principal; 2023-04-29)
DX: F10.230 Alcohol dependence with withdrawal, uncomplicated (principal); F11.20 Opioid dependence, uncomplicated; F14.20 Cocaine dependence, uncomplicated; F16.20 Hallucinogen dependence, uncomplicated; F17.210 Nicotine dependence, cigarettes, uncomplicated; F31.0 Bipolar disorder, current episode hypomanic; F19.280 Other psychoactive substance dependence with psychoactive substance-induced anxiety disorder; F19.282 Other psychoactive substance dependence with psychoactive substance-induced sleep disorder; F19.24 Other psychoactive substance dependence with psychoactive substance-induced mood disorder; E11.9 Type 2 diabetes mellitus without complications; Z79.4 Long term (current) use of insulin; K21.9 Gastro-esophageal reflux disease without esophagitis; R76.11 Nonspecific reaction to tuberculin skin test without active tuberculosis; R79.89 Other specified abnormal findings of blood chemistry; Z99.89 Dependence on other enabling machines and devices; Z86.718 Personal history of other venous thrombosis and embolism; Z79.01 Long term (current) use of anticoagulants; Z88.8 Allergy status to other drugs, medicaments and biological substances; Z91.041 Radiographic dye allergy status
CPT/HCPCS: 36415; 80053; 82140; 82962; 85027; 86780; 87635

== ENCOUNTER 2023-05-03 18:38 | Inpatient (IN) | payer OTHER ==
[2023-05-03] MEDS ORDERED: ALBUTEROL SO4 HFA INHALER IH PRN (19:32)
[2023-05-03] MEDS ORDERED: NALOXONE HCL 0.4 MG/ML VIAL IVPUSH PRN (19:35)
[2023-05-03] MEDS ORDERED: guaiFENesin 600 MG TABLET.ER (FP) PO PRN (19:35)
[2023-05-03] MEDS ORDERED: MAG HYDROX/AL HYDROX/SIMETH 30 ML UNIT-DOSE CUP PO PRN (19:35)
[2023-05-03] MEDS ORDERED: BENZOCAINE/MENTHOL (CHLORASEPTIC ) LOZENGE MM PRN (19:35)
[2023-05-03] MEDS ORDERED: BENZONATATE 200 MG CAPSULE PO PRN (19:35)
[2023-05-03] MEDS ORDERED: MELATONIN 5 MG TABLETS PO PRN (19:35)
[2023-05-03] MEDS ORDERED: NALOXONE HCL (KLOXXADO) 8 MG SPRAY NS PRN (19:35)
[2023-05-03] MEDS ORDERED: ACETAMINOPHEN 325 MG TABLET (FP) PO PRN (19:35)
[2023-05-03] MEDS ORDERED: MAGNESIUM HYDROX 2400MG/30ML ORAL SUSPENSION 30 ML CUP PO PRN (19:35)
[2023-05-03] MEDS ORDERED: LOPERAMIDE HCL 2 MG CAPSULE PO PRN (19:35)
[2023-05-03] MEDS ORDERED: AMMONIUM LACTATE 12% LOTION 225 GM BOTTLE TP PRN (19:35)
[2023-05-03] MEDS ORDERED: P-EPHED 60MG/TRIPROLIDI 2.5MG TABLET PO PRN (19:35)
[2023-05-03] MEDS ORDERED: NICOTINE 10 MG CARTRIDGE (INHALER) IH PRN (19:35)
[2023-05-03] MEDS ORDERED: POLYETHYLENE GLYCOL (HEALTHYLAX) 3350 17 GM PACKET PO PRN (19:35)
[2023-05-03] MEDS ORDERED: COLLOIDAL OATMEAL 1 BAR EACH TP PRN (19:35)
[2023-05-03] MEDS ORDERED: NALOXONE (NARCAN) HCL 4 MG/0.1 ML SPRAY NS SCH (19:45)
[2023-05-03] MEDS: INSULIN (LEVEMIR) 100 UNITS/ML UNITS SQ SCH (21:20)
[2023-05-03] MEDS: LACTULOSE 20 GM/30 ML UDC (FOR ORAL USE ONLY) PO SCH (21:20)
[2023-05-03] MEDS: THIAMINE HCL 100 MG TABLET (FP) PO SCH (21:21)
[2023-05-03] MEDS: APIXABAN 5 MG TABLET PO SCH (21:21)
[2023-05-03] MEDS: ATORVASTATIN CA 40 MG TABLET (FP) PO SCH (21:21)
[2023-05-03] MEDS: GABAPENTIN 300 MG CAPSULE PO SCH (21:21)
[2023-05-03] MEDS: MONTELUKAST NA 10 MG TABLET PO SCH (21:21)
[2023-05-04] MEDS ORDERED: methaDONE HCL 40 MG DISPERSABLE TABLET PO SCH (06:00)
[2023-05-04] MEDS ORDERED: INSULIN (NOVOLOG) ASPART 100 UNITS/ML 10ML VIAL ONE ×4 (06:28→14:13)
[2023-05-04] MEDS: INSULIN SLIDING SCALE (NOVOLOG) 1 VIAL SQ SCH ×3 (06:29→16:48)
[2023-05-04] MEDS: PRENATAL VITAMINS W/ FOLIC ACID TABLET (FP) PO SCH (09:38)
[2023-05-04] MEDS: ENALAPRIL MALEATE 10 MG TABLET PO SCH (09:39)
[2023-05-04] MEDS: FOLIC ACID 1 MG TABLET (FP) PO SCH (09:39)
[2023-05-04] MEDS: APIXABAN 5 MG TABLET PO SCH ×2 (09:39→21:37)
[2023-05-04] MEDS: amLODIPine BESYLATE 10 MG TABLET (FP) PO SCH (09:39)
[2023-05-04] MEDS: TAMSULOSIN HCL 0.4 MG CAP PO SCH (09:39)
[2023-05-04] MEDS: LACTULOSE 20 GM/30 ML UDC (FOR ORAL USE ONLY) PO SCH ×4 (09:39→21:43)
[2023-05-04] MEDS: ASPIRIN 81 MG CHEWABLE TABLETS PO SCH (09:39)
[2023-05-04] MEDS: glyBURIDE 5 MG TABLET PO SCH (09:42)
[2023-05-04] MEDS ORDERED: INSULIN (NOVOLOG) ASPART 100 UNITS/ML 10ML VIAL SQ ONE (13:15)
[2023-05-04] MEDS ORDERED: DICYCLOMINE HCL 10 MG CAPSULE PO PRN ×2 (13:20→13:26)
[2023-05-04] MEDS ORDERED: IBUPROFEN 600 MG TABLET (FP) PO ONE (14:25)
[2023-05-04] MEDS: ATORVASTATIN CA 40 MG TABLET (FP) PO SCH (21:37)
[2023-05-04] MEDS: GABAPENTIN 300 MG CAPSULE PO SCH (21:37)
[2023-05-04] MEDS: THIAMINE HCL 100 MG TABLET (FP) PO SCH (21:37)
[2023-05-04] MEDS: INSULIN (LEVEMIR) 100 UNITS/ML UNITS SQ SCH (21:38)
[2023-05-04] MEDS: MONTELUKAST NA 10 MG TABLET PO SCH (21:38)
[2023-05-04] MEDS ORDERED: QUEtiapine FUMARATE 300 MG TABLET PO SCH (22:00)
[2023-05-05] MEDS: INSULIN SLIDING SCALE (NOVOLOG) 1 VIAL SQ SCH ×2 (07:10→11:12)
[2023-05-05 09:29] VITALS: BP 107/59; PULSE 95; RESP 16; TEMP 100.2
[2023-05-05] MEDS: glyBURIDE 5 MG TABLET PO SCH (09:45)
[2023-05-05] MEDS: LACTULOSE 20 GM/30 ML UDC (FOR ORAL USE ONLY) PO SCH (09:45)
[2023-05-05] MEDS: ASPIRIN 81 MG CHEWABLE TABLETS PO SCH (09:45)
[2023-05-05] MEDS: amLODIPine BESYLATE 10 MG TABLET (FP) PO SCH (09:45)
[2023-05-05] MEDS: TAMSULOSIN HCL 0.4 MG CAP PO SCH (09:45)
[2023-05-05] MEDS: PRENATAL VITAMINS W/ FOLIC ACID TABLET (FP) PO SCH (09:45)
[2023-05-05] MEDS: APIXABAN 5 MG TABLET PO SCH (09:45)
[2023-05-05] MEDS: ENALAPRIL MALEATE 10 MG TABLET PO SCH (09:45)
[2023-05-05] MEDS: FOLIC ACID 1 MG TABLET (FP) PO SCH (09:45)
[2023-05-05 11:24] LABS: HEMATOCRIT 34.5 % (35.4-49); HEMOGLOBIN 11.1 GM/dL (11.7-16.9); MCH 28.8 pg (25.7-33.7); MEAN PLT VOLUME 9.7 fl (7.5-11.1); PLATELET COUNT 296 10^3/uL (134-434); RBC 3.84 M/mm3 (4.00-5.60); RDW 14.6 % (11.9-15.9); WHITE BLOOD COUNT 24.6 K/mm3 (4.0-10.0)
[2023-05-05 11:28] LABS: POTASSIUM 5.5 mmol/L (3.5-5.1)
[2023-05-05 11:31] LABS: ALBUMIN 2.8 g/dl (3.4-5.0); BLOOD UREA NITROGEN 42.6 mg/dL (7-18); CALCIUM 9.1 mg/dL (8.5-10.1)
[2023-05-05 11:34] LABS: CREATININE 1.3 mg/dL (0.55-1.3)
[2023-05-05 11:36] LABS: BILIRUBIN,TOTAL 0.3 mg/dL (0.2-1); TOT PROT 7.3 g/dl (6.4-8.2)
[2023-05-05 14:23] LABS: ANISOCYTOSIS 2+; MACROCYTOSIS 0
== END 2023-05-05 09:45 | disposition short-term general hospital (02) | DRG 772 ==
LOC: YASAS 18:38 → Y5N 18:44
PROVIDERS: ADMIT Allergy & Immunology; ATTEND Psychiatry & Neurology Pain Medicine
PROC: HZ42ZZZ Group Counseling for Substance Abuse Treatment, Cognitive-Behavioral (ICD-10-PCS; principal; 2023-05-03)
DX: F11.20 Opioid dependence, uncomplicated (principal); F10.20 Alcohol dependence, uncomplicated; F14.20 Cocaine dependence, uncomplicated; F16.20 Hallucinogen dependence, uncomplicated; F17.210 Nicotine dependence, cigarettes, uncomplicated; J18.9 Pneumonia, unspecified organism; L03.116 Cellulitis of left lower limb; E11.9 Type 2 diabetes mellitus without complications; Z79.4 Long term (current) use of insulin; J44.9 Chronic obstructive pulmonary disease, unspecified; N40.0 Benign prostatic hyperplasia without lower urinary tract symptoms; Z86.59 Personal history of other mental and behavioral disorders; Z88.8 Allergy status to other drugs, medicaments and biological substances; Z91.041 Radiographic dye allergy status
CPT/HCPCS: 36415; 80053; 82140; 82962; 85025

== ENCOUNTER 2023-05-05 10:11 | Inpatient (IN) | payer OTHER ==
[2023-05-05] MEDS ORDERED: PIPERACILLIN/TAZOB 3.375 GM 3.375 GM in DEXTROSE 5%-WATER - 50 ML IVPB ONE (10:45)
[2023-05-05] MEDS ORDERED: LACTATED RINGERS SOLUTION 1000 ML INFUS.BAG IV ONE (10:49)
[2023-05-05] MEDS ORDERED: VANCOMYCIN 1 GM in D5W (PRE-DOCKED) 1,000 MG/250 ML (RESTRICTED TO ID ONLY IVPB ONE (10:50)
[2023-05-05] MEDS ORDERED: PIPERACILLIN/TAZOB 3.375 GM 3.375 GM/50 ML BAG IVPB ONE (11:11)
[2023-05-05] MEDS ORDERED: VANCOMYCIN/WATER FOR INJ (PEG) 1,000 MG/200 ML BAG IVPB ONE (11:11)
[2023-05-05] MEDS ORDERED: ALBUTEROL SO4 2.5/IPRATROPIUM 0.5 INH SOL 3 ML VIAL.NEB. NEB ONE (11:11)
[2023-05-05] MEDS: ALBUTEROL SO4 2.5/IPRATROPIUM 0.5 INH SOL 3 ML VIAL.NEB. NEB SCH ×6 (11:28→20:47)
[2023-05-05] MEDS ORDERED: ACETAMINOPHEN 1000 MG/100 ML BAG IVPB ONE (11:33)
[2023-05-05] MEDS ORDERED: ACETAMINOPHEN INJECTION 100 ML IVPB ONE (11:42)
[2023-05-05 12:06] LABS: HEMATOCRIT 31.4 % (35.4-49); HEMOGLOBIN 10.2 GM/dL (11.7-16.9); MCH 28.9 pg (25.7-33.7); MCHC 32.4 g/dl (32.0-35.9); MEAN CELL VOLUME 89.2 fl (80-96); PLATELET COUNT 291 10^3/uL (134-434); RBC 3.52 M/mm3 (4.00-5.60); RDW 14.7 % (11.9-15.9); WHITE BLOOD COUNT 24.6 K/mm3 (4.0-10.0)
[2023-05-05 12:07] LABS: VENOUS BASE EXCESS -0.1 mmol/L (-2-2); VENOUS O2 SATURATION 77.7 % (70-80); VENOUS PCO2 49.8 mmHg (38-52); VENOUS PH 7.338 (7.310-7.410)
[2023-05-05 12:39] LABS: CHLORIDE 102 mmol/L (98-107); SODIUM 136 mmol/L (136-145)
[2023-05-05 12:41] LABS: CALCIUM 8.8 mg/dL (8.5-10.1)
[2023-05-05 12:42] LABS: ALBUMIN 2.5 g/dl (3.4-5.0); BLOOD UREA NITROGEN 42.4 mg/dL (7-18); CO2 27 mmol/L (21-32); GLUCOSE,RANDOM 214 mg/dL (74-106); LIPASE 48 U/L (73-393)
[2023-05-05] MEDS ORDERED: NOREPINEPHRINE BITARTRATE/D5W 8 MG/250 ML BAG IVPB ONE (12:44)
[2023-05-05 12:45] LABS: CREATININE 1.3 mg/dL (0.55-1.3); SGOT/AST 68 U/L (15-37); SGPT/ALT 53 U/L (13-61)
[2023-05-05 12:47] LABS: BILIRUBIN,TOTAL 0.5 mg/dL (0.2-1); TOT PROT 6.9 g/dl (6.4-8.2)
[2023-05-05 12:48] LABS: ALK PHOS 112 U/L (45-117)
[2023-05-05 12:50] LABS: N-TERMINAL BNP 743.5 pg/ml (5-125)
[2023-05-05 12:51] LABS: ANION GAP 7 MMOL/L (8-16); POTASSIUM 8.4 mmol/L (3.5-5.1)
[2023-05-05] MEDS ORDERED: NOREPINEPHRINE BITARTRATE/D5W 8 MG/250 ML BAG IVPB SCH ×2 (13:00→13:30)
[2023-05-05] MEDS: SODIUM CHLORIDE 1,000 ML IV SCH ×2 (13:22→15:30)
[2023-05-05 14:25] LABS: ANISOCYTOSIS 0; MACROCYTOSIS 0
[2023-05-05 15:12] LABS: ERYTHROCYTE SEDIMENTATION RATE 101 mm/hr (0-20)
[2023-05-05 15:36] VITALS: BMI 25.6
[2023-05-05 16:32] LABS: POTASSIUM 4.9 mmol/L (3.5-5.1)
[2023-05-05 16:33] LABS: CALCIUM 8.1 mg/dL (8.5-10.1)
[2023-05-05 16:37] LABS: CREATININE 1.1 mg/dL (0.55-1.3)
[2023-05-05] MEDS ORDERED: INSULIN (NOVOLOG) ASPART 100 UNITS/ML 10ML VIAL ONE ×2 (16:40→21:26)
[2023-05-05] MEDS: INSULIN (NOVOLOG) ASPART 100 UNITS/ML 10ML VIAL SQ SCH ×2 (16:41→21:48)
[2023-05-05] MEDS: PIPERACILLIN/TAZOB 3.375 GM 3.375 GM in DEXTROSE 5%-WATER - 50 ML IVPB SCH (17:05)
[2023-05-05] MEDS: methylPREDNISolone NA SUCC 40 MG/1 ML VIAL IVPUSH SCH (17:05)
[2023-05-05 17:13] LABS: PH,URINE 5.5 (5.0-8.0); URINE APPEARANCE CLEAR; URINE BILIRUBIN NEGATIVE (NEGATIVE); URINE COLOR YELLOW; URINE GLUCOSE (UA) NEGATIVE (NEGATIVE); URINE KETONE NEGATIVE (NEGATIVE); URINE LEUK ESTERASE NEGATIVE (NEGATIVE); URINE NITRITE NEGATIVE (NEGATIVE); URINE PROTEIN TRACE (NEGATIVE); URINE UROBILINOGEN 0.2 mg/dL (0.2-1.0)
[2023-05-05] MEDS: LACTULOSE 20 GM/30 ML UDC (FOR ORAL USE ONLY) PO SCH ×2 (17:18→21:47)
[2023-05-05] MEDS: MUPIROCIN 2% TOPICAL OINTMENT FOR DECOLONIZATION NS SCH (21:53)
[2023-05-05] MEDS ORDERED: MONTELUKAST NA 10 MG TABLET PO SCH (22:00)
[2023-05-05] MEDS ORDERED: CHLORHEXIDINE GLUCONATE 4% CLEANSER FOR DECOLONIZATION TP SCH (22:00)
[2023-05-05] MEDS ORDERED: INSULIN (LEVEMIR) 100 UNITS/ML UNITS SQ SCH (22:00)
[2023-05-05] MEDS ORDERED: APIXABAN 5 MG TABLET PO SCH (22:00)
[2023-05-05] MEDS ORDERED: QUEtiapine FUMARATE 100 MG TABLET (FP) PO SCH (22:00)
[2023-05-05] MEDS ORDERED: ATORVASTATIN CA 40 MG TABLET (FP) PO SCH (22:00)
[2023-05-06] MEDS: SODIUM CHLORIDE 1,000 ML IV SCH ×3 (00:10→19:15)
[2023-05-06] MEDS: LACTULOSE 20 GM/30 ML UDC (FOR ORAL USE ONLY) PO SCH ×5 (00:36→21:34)
[2023-05-06] MEDS: ALBUTEROL SO4 2.5/IPRATROPIUM 0.5 INH SOL 3 ML VIAL.NEB. NEB SCH ×6 (00:51→20:05)
[2023-05-06] MEDS: PIPERACILLIN/TAZOB 3.375 GM 3.375 GM in DEXTROSE 5%-WATER - 50 ML IVPB SCH ×3 (01:03→17:05)
[2023-05-06] MEDS: methylPREDNISolone NA SUCC 40 MG/1 ML VIAL IVPUSH SCH ×3 (01:03→17:06)
[2023-05-06] MEDS ORDERED: methaDONE HCL 10 MG TABLET PO SCH ×2 (06:00→08:15)
[2023-05-06] MEDS: INSULIN (NOVOLOG) ASPART 100 UNITS/ML 10ML VIAL SQ SCH ×4 (06:13→17:03)
[2023-05-06 07:01] LABS: HEMATOCRIT 33.5 % (35.4-49); HEMOGLOBIN 10.7 GM/dL (11.7-16.9); MCH 28.8 pg (25.7-33.7); MCHC 31.9 g/dl (32.0-35.9); MEAN CELL VOLUME 90.5 fl (80-96); MEAN PLT VOLUME 10.2 fl (7.5-11.1); PLATELET COUNT 303 10^3/uL (134-434)
[2023-05-06 07:11] LABS: INR 1.24 (0.83-1.09); PROTHROMBIN TIME (PATIENT) 14.4 SEC (9.7-13.0)
[2023-05-06 07:22] LABS: CHLORIDE 103 mmol/L (98-107); SODIUM 137 mmol/L (136-145)
[2023-05-06 07:26] LABS: BLOOD UREA NITROGEN 29.8 mg/dL (7-18); CO2 24 mmol/L (21-32)
[2023-05-06 07:27] LABS: CALCIUM 8.7 mg/dL (8.5-10.1)
[2023-05-06 07:28] LABS: MAGNESIUM 1.9 mg/dL (1.8-2.4)
[2023-05-06 07:29] LABS: PHOSPHOROUS 2.2 mg/dL (2.5-4.9)
[2023-05-06 07:30] LABS: CREATININE 1.1 mg/dL (0.55-1.3)
[2023-05-06 07:43] LABS: ANION GAP 10 MMOL/L (8-16); GLUCOSE,RANDOM 543 mg/dL (74-106); POTASSIUM 6.3 mmol/L (3.5-5.1)
[2023-05-06] MEDS ORDERED: INSULIN REGULAR HUMAN 100 UNITS/ML *VIAL IVPUSH ONE (08:00)
[2023-05-06] MEDS ORDERED: CALCIUM GLUCONATE 10% - 1,000 MG/10 ML VIAL IVPUSH ONE (08:01)
[2023-05-06] MEDS ORDERED: INSULIN (NOVOLOG) ASPART 100 UNITS/ML 10ML VIAL SQ ONE (08:01)
[2023-05-06] MEDS ORDERED: TAMSULOSIN HCL 0.4 MG CAP PO SCH (08:30)
[2023-05-06] MEDS ORDERED: INSULIN REGULAR HUMAN 100 UNITS/ML *VIAL ONE (08:37)
[2023-05-06] MEDS: MUPIROCIN 2% TOPICAL OINTMENT FOR DECOLONIZATION NS SCH (09:24)
[2023-05-06] MEDS ORDERED: amLODIPine BESYLATE 10 MG TABLET (FP) PO SCH (10:00)
[2023-05-06] MEDS ORDERED: SODIUM ZIRCONIUM CYCLOSILICATE (LOKELMA) 5 GM PACKET PO SCH (10:00)
[2023-05-06] MEDS ORDERED: APIXABAN 5 MG TABLET PO SCH (10:00)
[2023-05-06] MEDS ORDERED: ASPIRIN 81 MG CHEWABLE TABLETS PO SCH (10:00)
[2023-05-06] MEDS ORDERED: FOLIC ACID 1 MG TABLET (FP) PO SCH (10:00)
[2023-05-06] MEDS ORDERED: ENOXAPARIN NA (PORCINE) 40 MG/0.4 ML DISP.SYRIN SQ SCH ×2 (10:00)
[2023-05-06] MEDS ORDERED: ENALAPRIL MALEATE 10 MG TABLET PO SCH (10:00)
[2023-05-06 10:13] LABS: ANISOCYTOSIS 1+; MACROCYTOSIS 0
[2023-05-06] MEDS ORDERED: INSULIN (NOVOLOG) ASPART 100 UNITS/ML 10ML VIAL ONE ×5 (11:39→16:50)
[2023-05-06 13:35] LABS: CHLORIDE 100 mmol/L (98-107); POTASSIUM 4.9 mmol/L (3.5-5.1); SODIUM 139 mmol/L (136-145)
[2023-05-06 13:36] LABS: CALCIUM 9.2 mg/dL (8.5-10.1)
[2023-05-06 13:37] LABS: ANION GAP 10 MMOL/L (8-16); BLOOD UREA NITROGEN 27.2 mg/dL (7-18); CO2 29 mmol/L (21-32)
[2023-05-06 13:40] LABS: CREATININE 1.1 mg/dL (0.55-1.3)
[2023-05-06 13:41] LABS: GLUCOSE,RANDOM 451 mg/dL (74-106)
[2023-05-06] MEDS: COLLAGENASE CLOSTRIDIUM HIST. 30 GRAMS TUBE TP SCH (17:04)
[2023-05-06] MEDS: ATORVASTATIN CA 40 MG TABLET (FP) PO SCH (21:34)
[2023-05-06] MEDS: MONTELUKAST NA 10 MG TABLET PO SCH (21:34)
[2023-05-06] MEDS: APIXABAN 5 MG TABLET PO SCH (21:35)
[2023-05-06] MEDS: QUEtiapine FUMARATE 100 MG TABLET (FP) PO SCH (21:35)
[2023-05-06] MEDS: INSULIN SLIDING SCALE (NOVOLOG) 1 VIAL SQ SCH (21:36)
[2023-05-06] MEDS ORDERED: CHLORHEXIDINE GLUCONATE 4% CLEANSER FOR DECOLONIZATION TP SCH (22:00)
[2023-05-06] MEDS ORDERED: MUPIROCIN 2% TOPICAL OINTMENT FOR DECOLONIZATION NS SCH (22:00)
[2023-05-06] MEDS ORDERED: INSULIN (LEVEMIR) 100 UNITS/ML UNITS SQ SCH (22:00)
[2023-05-06] MEDS: NICOTINE 14 MG/24 HOURS TOPICAL PATCH TD SCH (23:08)
[2023-05-07] MEDS: methylPREDNISolone NA SUCC 40 MG/1 ML VIAL IVPUSH SCH ×3 (01:45→17:54)
[2023-05-07] MEDS: PIPERACILLIN/TAZOB 3.375 GM 3.375 GM in DEXTROSE 5%-WATER - 50 ML IVPB SCH ×3 (01:45→17:53)
[2023-05-07] MEDS: ALBUTEROL SO4 2.5/IPRATROPIUM 0.5 INH SOL 3 ML VIAL.NEB. NEB SCH ×6 (04:00→20:05)
[2023-05-07] MEDS ORDERED: INSULIN (NOVOLOG) ASPART 100 UNITS/ML 10ML VIAL ONE ×3 (05:37→17:41)
[2023-05-07] MEDS: INSULIN SLIDING SCALE (NOVOLOG) 1 VIAL SQ SCH ×5 (05:54→22:20)
[2023-05-07] MEDS ORDERED: INSULIN (NOVOLOG) ASPART 100 UNITS/ML 10ML VIAL SQ ONE (06:00)
[2023-05-07] MEDS: TAMSULOSIN HCL 0.4 MG CAP PO SCH (08:34)
[2023-05-07 09:32] LABS: HEMATOCRIT 32.5 % (35.4-49); HEMOGLOBIN 10.8 GM/dL (11.7-16.9); MCH 29.2 pg (25.7-33.7); MCHC 33.1 g/dl (32.0-35.9); MEAN CELL VOLUME 88.2 fl (80-96); MEAN PLT VOLUME 9.1 fl (7.5-11.1); PLATELET COUNT 371 10^3/uL (134-434); RBC 3.68 M/mm3 (4.00-5.60); WHITE BLOOD COUNT 21.1 K/mm3 (4.0-10.0)
[2023-05-07 09:43] LABS: POTASSIUM 5.4 mmol/L (3.5-5.1)
[2023-05-07 09:59] LABS: ALBUMIN 2.5 g/dl (3.4-5.0); BLOOD UREA NITROGEN 23.8 mg/dL (7-18); CALCIUM 9.8 mg/dL (8.5-10.1)
[2023-05-07 10:00] LABS: MAGNESIUM 1.7 mg/dL (1.8-2.4)
[2023-05-07 10:02] LABS: PHOSPHOROUS 4.1 mg/dL (2.5-4.9)
[2023-05-07 10:03] LABS: BILIRUBIN,TOTAL 0.5 mg/dL (0.2-1)
[2023-05-07 10:04] LABS: TOT PROT 7.2 g/dl (6.4-8.2)
[2023-05-07] MEDS: amLODIPine BESYLATE 10 MG TABLET (FP) PO SCH (10:13)
[2023-05-07] MEDS: FOLIC ACID 1 MG TABLET (FP) PO SCH (10:13)
[2023-05-07] MEDS: ASPIRIN 81 MG CHEWABLE TABLETS PO SCH (10:13)
[2023-05-07] MEDS: ENALAPRIL MALEATE 10 MG TABLET PO SCH (10:14)
[2023-05-07] MEDS: APIXABAN 5 MG TABLET PO SCH ×2 (10:14→21:53)
[2023-05-07] MEDS: LACTULOSE 20 GM/30 ML UDC (FOR ORAL USE ONLY) PO SCH ×5 (10:14→21:55)
[2023-05-07] MEDS: SODIUM ZIRCONIUM CYCLOSILICATE (LOKELMA) 5 GM PACKET PO SCH (10:14)
[2023-05-07] MEDS: NICOTINE 14 MG/24 HOURS TOPICAL PATCH TD SCH (10:15)
[2023-05-07] MEDS: COLLAGENASE CLOSTRIDIUM HIST. 30 GRAMS TUBE TP SCH (10:38)
[2023-05-07 10:44] LABS: ANISOCYTOSIS 0; MACROCYTOSIS 0
[2023-05-07] MEDS ORDERED: INSULIN (LEVEMIR) 100 UNITS/ML UNITS SQ ONE (11:45)
[2023-05-07] MEDS: INSULIN (LEVEMIR) 100 UNITS/ML UNITS SQ SCH (17:50)
[2023-05-07 19:53] LABS: GLUCOSE,RANDOM 524 mg/dL (74-106)
[2023-05-07] MEDS: MAGNESIUM OXIDE 400 MG TABLET (FP) PO SCH (21:53)
[2023-05-07] MEDS: MONTELUKAST NA 10 MG TABLET PO SCH (21:53)
[2023-05-07] MEDS: QUEtiapine FUMARATE 100 MG TABLET (FP) PO SCH (21:53)
[2023-05-07] MEDS: ATORVASTATIN CA 40 MG TABLET (FP) PO SCH (21:54)
[2023-05-08] MEDS: PIPERACILLIN/TAZOB 3.375 GM 3.375 GM in DEXTROSE 5%-WATER - 50 ML IVPB SCH ×3 (02:06→17:04)
[2023-05-08] MEDS: methylPREDNISolone NA SUCC 40 MG/1 ML VIAL IVPUSH SCH (02:06)
[2023-05-08] MEDS: ALBUTEROL SO4 2.5/IPRATROPIUM 0.5 INH SOL 3 ML VIAL.NEB. NEB SCH ×6 (04:00→20:05)
[2023-05-08] MEDS: INSULIN SLIDING SCALE (NOVOLOG) 1 VIAL SQ SCH ×5 (05:16→21:38)
[2023-05-08] MEDS: INSULIN (LEVEMIR) 100 UNITS/ML UNITS SQ SCH ×2 (06:09→21:42)
[2023-05-08] MEDS ORDERED: methylPREDNISolone NA SUCC 40 MG/1 ML VIAL IVPUSH SCH (09:00)
[2023-05-08 09:32] LABS: HEMATOCRIT 34.6 % (35.4-49); HEMOGLOBIN 11.3 GM/dL (11.7-16.9); MCHC 32.7 g/dl (32.0-35.9); MEAN CELL VOLUME 88.9 fl (80-96); MEAN PLT VOLUME 9.3 fl (7.5-11.1); PLATELET COUNT 391 10^3/uL (134-434); RBC 3.89 M/mm3 (4.00-5.60); RDW 15.2 % (11.9-15.9); WHITE BLOOD COUNT 17.8 K/mm3 (4.0-10.0)
[2023-05-08 09:46] LABS: CHLORIDE 93 mmol/L (98-107); POTASSIUM 5.5 mmol/L (3.5-5.1); SODIUM 132 mmol/L (136-145)
[2023-05-08 09:51] LABS: ANION GAP 11 MMOL/L (8-16); CALCIUM 10.2 mg/dL (8.5-10.1); CO2 28 mmol/L (21-32); MAGNESIUM 1.8 mg/dL (1.8-2.4)
[2023-05-08 09:52] LABS: BLOOD UREA NITROGEN 31.8 mg/dL (7-18)
[2023-05-08 09:54] LABS: SGPT/ALT 77 U/L (13-61)
[2023-05-08 09:55] LABS: SGOT/AST 31 U/L (15-37)
[2023-05-08 09:56] LABS: BILIRUBIN,TOTAL 0.3 mg/dL (0.2-1)
[2023-05-08 09:57] LABS: ALK PHOS 138 U/L (45-117)
[2023-05-08] MEDS: MAGNESIUM OXIDE 400 MG TABLET (FP) PO SCH (09:58)
[2023-05-08] MEDS: NICOTINE 14 MG/24 HOURS TOPICAL PATCH TD SCH (09:58)
[2023-05-08] MEDS: amLODIPine BESYLATE 10 MG TABLET (FP) PO SCH (09:58)
[2023-05-08] MEDS: ASPIRIN 81 MG CHEWABLE TABLETS PO SCH (09:58)
[2023-05-08] MEDS: APIXABAN 5 MG TABLET PO SCH ×2 (09:59→21:33)
[2023-05-08] MEDS: FOLIC ACID 1 MG TABLET (FP) PO SCH (09:59)
[2023-05-08] MEDS: TAMSULOSIN HCL 0.4 MG CAP PO SCH (09:59)
[2023-05-08] MEDS: ENALAPRIL MALEATE 10 MG TABLET PO SCH (09:59)
[2023-05-08] MEDS: LACTULOSE 20 GM/30 ML UDC (FOR ORAL USE ONLY) PO SCH ×4 (10:00→21:33)
[2023-05-08] MEDS ORDERED: INSULIN (LEVEMIR) 100 UNITS/ML UNITS SQ SCH (10:00)
[2023-05-08] MEDS: SODIUM ZIRCONIUM CYCLOSILICATE (LOKELMA) 5 GM PACKET PO SCH (10:01)
[2023-05-08 10:11] LABS: ALBUMIN 3.1 g/dl (3.4-5.0); GLUCOSE,RANDOM 498 mg/dL (74-106)
[2023-05-08] MEDS ORDERED: INSULIN (LEVEMIR) 100 UNITS/ML UNITS SQ ONE (11:00)
[2023-05-08] MEDS ORDERED: INSULIN (NOVOLOG) ASPART 100 UNITS/ML 10ML VIAL ONE ×3 (11:02→21:55)
[2023-05-08] MEDS: COLLAGENASE CLOSTRIDIUM HIST. 30 GRAMS TUBE TP SCH (11:11)
[2023-05-08 12:04] LABS: ANISOCYTOSIS 0; MACROCYTOSIS 0
[2023-05-08] MEDS: QUEtiapine FUMARATE 100 MG TABLET (FP) PO SCH (21:33)
[2023-05-08] MEDS: ATORVASTATIN CA 40 MG TABLET (FP) PO SCH (21:34)
[2023-05-08] MEDS: MONTELUKAST NA 10 MG TABLET PO SCH (21:34)
[2023-05-09] MEDS ORDERED: PIPERACILLIN/TAZOBACTAM 3.375 GM VIAL IVPB ONE (01:09)
[2023-05-09] MEDS: PIPERACILLIN/TAZOB 3.375 GM 3.375 GM in DEXTROSE 5%-WATER - 50 ML IVPB SCH ×3 (01:21→18:41)
[2023-05-09] MEDS: ALBUTEROL SO4 2.5/IPRATROPIUM 0.5 INH SOL 3 ML VIAL.NEB. NEB SCH ×6 (04:00→20:18)
[2023-05-09] MEDS ORDERED: INSULIN (NOVOLOG) ASPART 100 UNITS/ML 10ML VIAL ONE ×2 (07:16→21:47)
[2023-05-09] MEDS: INSULIN (LEVEMIR) 100 UNITS/ML UNITS SQ SCH ×2 (07:25→22:47)
[2023-05-09] MEDS: INSULIN SLIDING SCALE (NOVOLOG) 1 VIAL SQ SCH ×4 (07:26→22:48)
[2023-05-09 07:36] LABS: HEMATOCRIT 35.7 % (35.4-49); HEMOGLOBIN 11.4 GM/dL (11.7-16.9); MCH 28.6 pg (25.7-33.7); MCHC 31.9 g/dl (32.0-35.9); MEAN CELL VOLUME 89.7 fl (80-96); PLATELET COUNT 400 10^3/uL (134-434); RBC 3.98 M/mm3 (4.00-5.60); RDW 14.9 % (11.9-15.9); WHITE BLOOD COUNT 23.3 K/mm3 (4.0-10.0)
[2023-05-09 07:49] LABS: CHLORIDE 98 mmol/L (98-107); POTASSIUM 4.9 mmol/L (3.5-5.1); SODIUM 132 mmol/L (136-145)
[2023-05-09 07:50] LABS: CALCIUM 9.3 mg/dL (8.5-10.1)
[2023-05-09 07:51] LABS: ALBUMIN 2.9 g/dl (3.4-5.0); ANION GAP 9 MMOL/L (8-16); BLOOD UREA NITROGEN 35.3 mg/dL (7-18); CO2 26 mmol/L (21-32); MAGNESIUM 1.6 mg/dL (1.8-2.4)
[2023-05-09 07:54] LABS: CREATININE 1.2 mg/dL (0.55-1.3); SGOT/AST 13 U/L (15-37); SGPT/ALT 54 U/L (13-61)
[2023-05-09 07:56] LABS: BILIRUBIN,TOTAL 0.2 mg/dL (0.2-1); TOT PROT 7.3 g/dl (6.4-8.2)
[2023-05-09 07:57] LABS: ALK PHOS 116 U/L (45-117)
[2023-05-09 08:14] LABS: GLUCOSE,RANDOM 437 mg/dL (74-106)
[2023-05-09] MEDS: TAMSULOSIN HCL 0.4 MG CAP PO SCH (08:30)
[2023-05-09 09:19] LABS: ANISOCYTOSIS 1+; MACROCYTOSIS 0
[2023-05-09] MEDS: ASPIRIN 81 MG CHEWABLE TABLETS PO SCH (10:20)
[2023-05-09] MEDS: amLODIPine BESYLATE 10 MG TABLET (FP) PO SCH (10:20)
[2023-05-09] MEDS: SODIUM ZIRCONIUM CYCLOSILICATE (LOKELMA) 5 GM PACKET PO SCH (10:21)
[2023-05-09] MEDS: FOLIC ACID 1 MG TABLET (FP) PO SCH (10:21)
[2023-05-09] MEDS: ENALAPRIL MALEATE 10 MG TABLET PO SCH (10:21)
[2023-05-09] MEDS: NICOTINE 14 MG/24 HOURS TOPICAL PATCH TD SCH (10:21)
[2023-05-09] MEDS: APIXABAN 5 MG TABLET PO SCH ×2 (10:21→22:28)
[2023-05-09] MEDS: MAGNESIUM OXIDE 400 MG TABLET (FP) PO SCH ×2 (10:51→22:28)
[2023-05-09] MEDS: COLLAGENASE CLOSTRIDIUM HIST. 30 GRAMS TUBE TP SCH (10:52)
[2023-05-09] MEDS ORDERED: INSULIN (NOVOLOG) ASPART 100 UNITS/ML 10ML VIAL SQ SCH (11:00)
[2023-05-09] MEDS: LACTULOSE 20 GM/30 ML UDC (FOR ORAL USE ONLY) PO SCH ×5 (11:11→22:27)
[2023-05-09] MEDS: INSULIN (NOVOLOG) ASPART 100 UNITS/ML 10ML VIAL SQ SCH (17:32)
[2023-05-09] MEDS: MONTELUKAST NA 10 MG TABLET PO SCH (22:27)
[2023-05-09] MEDS: ATORVASTATIN CA 40 MG TABLET (FP) PO SCH (22:28)
[2023-05-09] MEDS: QUEtiapine FUMARATE 100 MG TABLET (FP) PO SCH (22:28)
[2023-05-10] MEDS: ALBUTEROL SO4 2.5/IPRATROPIUM 0.5 INH SOL 3 ML VIAL.NEB. NEB SCH ×6 (00:40→20:05)
[2023-05-10] MEDS: PIPERACILLIN/TAZOB 3.375 GM 3.375 GM in DEXTROSE 5%-WATER - 50 ML IVPB SCH ×3 (02:43→18:13)
[2023-05-10] MEDS: INSULIN (LEVEMIR) 100 UNITS/ML UNITS SQ SCH ×2 (08:13→21:56)
[2023-05-10] MEDS: INSULIN (NOVOLOG) ASPART 100 UNITS/ML 10ML VIAL SQ SCH ×3 (08:14→18:02)
[2023-05-10] MEDS: INSULIN SLIDING SCALE (NOVOLOG) 1 VIAL SQ SCH ×4 (08:14→21:55)
[2023-05-10 08:45] LABS: HEMOGLOBIN 12.1 GM/dL (11.7-16.9); MCH 28.3 pg (25.7-33.7); MCHC 31.7 g/dl (32.0-35.9); MEAN CELL VOLUME 89.4 fl (80-96); MEAN PLT VOLUME 8.9 fl (7.5-11.1); PLATELET COUNT 439 10^3/uL (134-434); RBC 4.26 M/mm3 (4.00-5.60); RDW 14.9 % (11.9-15.9); WHITE BLOOD COUNT 22.8 K/mm3 (4.0-10.0)
[2023-05-10 09:07] LABS: POTASSIUM 5.4 mmol/L (3.5-5.1)
[2023-05-10 09:11] LABS: ALBUMIN 2.7 g/dl (3.4-5.0); BLOOD UREA NITROGEN 40.8 mg/dL (7-18); CALCIUM 9.1 mg/dL (8.5-10.1); MAGNESIUM 1.9 mg/dL (1.8-2.4)
[2023-05-10 09:15] LABS: CREATININE 1.2 mg/dL (0.55-1.3)
[2023-05-10 09:16] LABS: BILIRUBIN,TOTAL 0.2 mg/dL (0.2-1); TOT PROT 6.8 g/dl (6.4-8.2)
[2023-05-10 09:32] LABS: ANISOCYTOSIS 1+; MACROCYTOSIS 0
[2023-05-10] MEDS ORDERED: PIPERACILLIN/TAZOBACTAM 3.375 GM VIAL IVPB ONE (10:17)
[2023-05-10] MEDS: amLODIPine BESYLATE 10 MG TABLET (FP) PO SCH (10:29)
[2023-05-10] MEDS: FOLIC ACID 1 MG TABLET (FP) PO SCH (10:29)
[2023-05-10] MEDS: ENALAPRIL MALEATE 10 MG TABLET PO SCH (10:29)
[2023-05-10] MEDS: ASPIRIN 81 MG CHEWABLE TABLETS PO SCH (10:29)
[2023-05-10] MEDS: APIXABAN 5 MG TABLET PO SCH ×2 (10:29→21:43)
[2023-05-10] MEDS: SODIUM ZIRCONIUM CYCLOSILICATE (LOKELMA) 5 GM PACKET PO SCH (10:30)
[2023-05-10] MEDS: NICOTINE 14 MG/24 HOURS TOPICAL PATCH TD SCH (10:30)
[2023-05-10] MEDS: TAMSULOSIN HCL 0.4 MG CAP PO SCH (10:30)
[2023-05-10] MEDS: COLLAGENASE CLOSTRIDIUM HIST. 30 GRAMS TUBE TP SCH (11:46)
[2023-05-10] MEDS: LACTULOSE 20 GM/30 ML UDC (FOR ORAL USE ONLY) PO SCH ×4 (11:47→21:43)
[2023-05-10] MEDS ORDERED: INSULIN (NOVOLOG) ASPART 100 UNITS/ML 10ML VIAL ONE ×2 (11:52→21:49)
[2023-05-10] MEDS: ATORVASTATIN CA 40 MG TABLET (FP) PO SCH (21:43)
[2023-05-10] MEDS: MONTELUKAST NA 10 MG TABLET PO SCH (21:43)
[2023-05-10] MEDS: QUEtiapine FUMARATE 100 MG TABLET (FP) PO SCH (21:43)
[2023-05-11] MEDS: PIPERACILLIN/TAZOB 3.375 GM 3.375 GM in DEXTROSE 5%-WATER - 50 ML IVPB SCH ×3 (01:48→15:05)
[2023-05-11] MEDS: INSULIN (LEVEMIR) 100 UNITS/ML UNITS SQ SCH ×2 (07:00→21:19)
[2023-05-11] MEDS: INSULIN (NOVOLOG) ASPART 100 UNITS/ML 10ML VIAL SQ SCH ×3 (07:00→17:20)
[2023-05-11] MEDS: INSULIN SLIDING SCALE (NOVOLOG) 1 VIAL SQ SCH ×4 (07:00→21:15)
[2023-05-11] MEDS: ALBUTEROL SO4 2.5/IPRATROPIUM 0.5 INH SOL 3 ML VIAL.NEB. NEB SCH ×3 (08:15→20:46)
[2023-05-11 09:02] LABS: HEMATOCRIT 32.7 % (35.4-49); HEMOGLOBIN 10.7 GM/dL (11.7-16.9); MCH 28.9 pg (25.7-33.7); MCHC 32.8 g/dl (32.0-35.9); MEAN PLT VOLUME 8.5 fl (7.5-11.1); PLATELET COUNT 413 10^3/uL (134-434); RBC 3.72 M/mm3 (4.00-5.60); RDW 14.8 % (11.9-15.9); WHITE BLOOD COUNT 22.4 K/mm3 (4.0-10.0)
[2023-05-11 09:16] LABS: POTASSIUM 4.9 mmol/L (3.5-5.1)
[2023-05-11 09:21] LABS: BLOOD UREA NITROGEN 41.5 mg/dL (7-18); CALCIUM 8.3 mg/dL (8.5-10.1)
[2023-05-11 09:22] LABS: ALBUMIN 2.4 g/dl (3.4-5.0); MAGNESIUM 1.8 mg/dL (1.8-2.4)
[2023-05-11 09:25] LABS: BILIRUBIN,TOTAL 0.2 mg/dL (0.2-1)
[2023-05-11] MEDS ORDERED: PIPERACILLIN/TAZOBACTAM 3.375 GM VIAL IVPB ONE ×2 (09:26→09:36)
[2023-05-11] MEDS: ASPIRIN 81 MG CHEWABLE TABLETS PO SCH (09:44)
[2023-05-11] MEDS: TAMSULOSIN HCL 0.4 MG CAP PO SCH (09:44)
[2023-05-11] MEDS: ENALAPRIL MALEATE 10 MG TABLET PO SCH (09:44)
[2023-05-11] MEDS: amLODIPine BESYLATE 10 MG TABLET (FP) PO SCH (09:45)
[2023-05-11] MEDS: APIXABAN 5 MG TABLET PO SCH ×2 (09:45→21:16)
[2023-05-11] MEDS: LACTULOSE 20 GM/30 ML UDC (FOR ORAL USE ONLY) PO SCH ×4 (09:45→21:19)
[2023-05-11] MEDS: SODIUM ZIRCONIUM CYCLOSILICATE (LOKELMA) 5 GM PACKET PO SCH (09:45)
[2023-05-11] MEDS: NICOTINE 14 MG/24 HOURS TOPICAL PATCH TD SCH (09:45)
[2023-05-11] MEDS: FOLIC ACID 1 MG TABLET (FP) PO SCH (09:45)
[2023-05-11 09:51] LABS: ANISOCYTOSIS 0; MACROCYTOSIS 0
[2023-05-11] MEDS ORDERED: INSULIN (NOVOLOG) ASPART 100 UNITS/ML 10ML VIAL ONE ×2 (12:02→21:13)
[2023-05-11] MEDS: CEFUROXIME AXETIL 500 MG TABLET PO SCH ×2 (12:42→21:15)
[2023-05-11] MEDS: COLLAGENASE CLOSTRIDIUM HIST. 30 GRAMS TUBE TP SCH (15:04)
[2023-05-11] MEDS: DOXYCYCLINE HYCLATE 100 MG CAPSULE PO SCH (17:52)
[2023-05-11] MEDS: QUEtiapine FUMARATE 100 MG TABLET (FP) PO SCH (21:15)
[2023-05-11] MEDS: ATORVASTATIN CA 40 MG TABLET (FP) PO SCH (21:16)
[2023-05-11] MEDS: MONTELUKAST NA 10 MG TABLET PO SCH (21:16)
[2023-05-12] MEDS: ALBUTEROL SO4 2.5/IPRATROPIUM 0.5 INH SOL 3 ML VIAL.NEB. NEB SCH ×8 (00:29→23:19)
[2023-05-12] MEDS: INSULIN (LEVEMIR) 100 UNITS/ML UNITS SQ SCH ×2 (06:31→21:18)
[2023-05-12] MEDS: INSULIN SLIDING SCALE (NOVOLOG) 1 VIAL SQ SCH ×4 (06:32→21:31)
[2023-05-12] MEDS: INSULIN (NOVOLOG) ASPART 100 UNITS/ML 10ML VIAL SQ SCH ×3 (06:32→17:28)
[2023-05-12] MEDS: TAMSULOSIN HCL 0.4 MG CAP PO SCH (08:01)
[2023-05-12 09:28] LABS: HEMATOCRIT 33.9 % (35.4-49); HEMOGLOBIN 10.7 GM/dL (11.7-16.9); MCH 28.6 pg (25.7-33.7); MCHC 31.7 g/dl (32.0-35.9); MEAN CELL VOLUME 90.3 fl (80-96); MEAN PLT VOLUME 9.4 fl (7.5-11.1); PLATELET COUNT 405 10^3/uL (134-434); RBC 3.75 M/mm3 (4.00-5.60); RDW 15.3 % (11.9-15.9); WHITE BLOOD COUNT 15.5 K/mm3 (4.0-10.0)
[2023-05-12 10:05] LABS: POTASSIUM 4.9 mmol/L (3.5-5.1)
[2023-05-12 10:07] LABS: ALBUMIN 2.7 g/dl (3.4-5.0); MAGNESIUM 1.9 mg/dL (1.8-2.4)
[2023-05-12 10:10] LABS: CREATININE 0.8 mg/dL (0.55-1.3)
[2023-05-12 10:12] LABS: BILIRUBIN,TOTAL 0.2 mg/dL (0.2-1); TOT PROT 6.5 g/dl (6.4-8.2)
[2023-05-12] MEDS: SODIUM ZIRCONIUM CYCLOSILICATE (LOKELMA) 5 GM PACKET PO SCH (10:22)
[2023-05-12] MEDS: FOLIC ACID 1 MG TABLET (FP) PO SCH (10:22)
[2023-05-12] MEDS: CEFUROXIME AXETIL 500 MG TABLET PO SCH ×2 (10:22→21:16)
[2023-05-12] MEDS: ASPIRIN 81 MG CHEWABLE TABLETS PO SCH (10:22)
[2023-05-12] MEDS: APIXABAN 5 MG TABLET PO SCH ×2 (10:22→21:17)
[2023-05-12] MEDS: DOXYCYCLINE HYCLATE 100 MG CAPSULE PO SCH ×2 (10:22→17:30)
[2023-05-12] MEDS: NICOTINE 14 MG/24 HOURS TOPICAL PATCH TD SCH (10:22)
[2023-05-12] MEDS: LACTULOSE 20 GM/30 ML UDC (FOR ORAL USE ONLY) PO SCH ×4 (10:23→21:18)
[2023-05-12] MEDS: ENALAPRIL MALEATE 10 MG TABLET PO SCH (10:23)
[2023-05-12] MEDS: amLODIPine BESYLATE 10 MG TABLET (FP) PO SCH (10:23)
[2023-05-12 10:35] LABS: ANISOCYTOSIS 2+; MACROCYTOSIS 0
[2023-05-12] MEDS: COLLAGENASE CLOSTRIDIUM HIST. 30 GRAMS TUBE TP SCH (17:24)
[2023-05-12] MEDS: QUEtiapine FUMARATE 100 MG TABLET (FP) PO SCH (21:16)
[2023-05-12] MEDS: ATORVASTATIN CA 40 MG TABLET (FP) PO SCH (21:16)
[2023-05-12] MEDS: MONTELUKAST NA 10 MG TABLET PO SCH (21:17)
[2023-05-13] MEDS: ALBUTEROL SO4 2.5/IPRATROPIUM 0.5 INH SOL 3 ML VIAL.NEB. NEB SCH ×6 (00:15→20:32)
[2023-05-13] MEDS: INSULIN (NOVOLOG) ASPART 100 UNITS/ML 10ML VIAL SQ SCH ×3 (06:31→17:08)
[2023-05-13] MEDS: INSULIN (LEVEMIR) 100 UNITS/ML UNITS SQ SCH ×2 (06:32→21:50)
[2023-05-13] MEDS: INSULIN SLIDING SCALE (NOVOLOG) 1 VIAL SQ SCH ×4 (06:34→21:48)
[2023-05-13 09:05] LABS: BASO % 1.2 % (0-2.0); EOS % 2.8 % (0-4.5); HEMOGLOBIN 10.5 GM/dL (11.7-16.9); LYMPH % 33.9 % (8-40); MCH 28.8 pg (25.7-33.7); MCHC 31.8 g/dl (32.0-35.9); MEAN CELL VOLUME 90.6 fl (80-96); MEAN PLT VOLUME 9.5 fl (7.5-11.1); MONO % 2.3 % (3.8-10.2); NEUT % 59.8 % (42.8-82.8); PLATELET COUNT 416 10^3/uL (134-434); RBC 3.64 M/mm3 (4.00-5.60); RDW 15.3 % (11.9-15.9); WHITE BLOOD COUNT 14.5 K/mm3 (4.0-10.0)
[2023-05-13 09:14] LABS: POTASSIUM 5.1 mmol/L (3.5-5.1)
[2023-05-13] MEDS: TAMSULOSIN HCL 0.4 MG CAP PO SCH (09:17)
[2023-05-13] MEDS: CEFUROXIME AXETIL 500 MG TABLET PO SCH ×2 (09:18→21:49)
[2023-05-13] MEDS: FOLIC ACID 1 MG TABLET (FP) PO SCH (09:18)
[2023-05-13] MEDS: LACTULOSE 20 GM/30 ML UDC (FOR ORAL USE ONLY) PO SCH ×4 (09:18→21:50)
[2023-05-13] MEDS: DOXYCYCLINE HYCLATE 100 MG CAPSULE PO SCH ×2 (09:18→18:33)
[2023-05-13] MEDS: SODIUM ZIRCONIUM CYCLOSILICATE (LOKELMA) 5 GM PACKET PO SCH (09:18)
[2023-05-13] MEDS: ENALAPRIL MALEATE 10 MG TABLET PO SCH (09:18)
[2023-05-13] MEDS: ASPIRIN 81 MG CHEWABLE TABLETS PO SCH (09:18)
[2023-05-13] MEDS: APIXABAN 5 MG TABLET PO SCH ×2 (09:18→21:49)
[2023-05-13] MEDS: NICOTINE 14 MG/24 HOURS TOPICAL PATCH TD SCH (09:18)
[2023-05-13] MEDS: amLODIPine BESYLATE 10 MG TABLET (FP) PO SCH (09:18)
[2023-05-13 09:19] LABS: ALBUMIN 2.9 g/dl (3.4-5.0); CALCIUM 9.2 mg/dL (8.5-10.1)
[2023-05-13 09:20] LABS: BLOOD UREA NITROGEN 40.6 mg/dL (7-18); MAGNESIUM 1.7 mg/dL (1.8-2.4)
[2023-05-13] MEDS: COLLAGENASE CLOSTRIDIUM HIST. 30 GRAMS TUBE TP SCH (09:20)
[2023-05-13 09:22] LABS: CREATININE 0.8 mg/dL (0.55-1.3)
[2023-05-13 09:24] LABS: BILIRUBIN,TOTAL 0.3 mg/dL (0.2-1); TOT PROT 6.7 g/dl (6.4-8.2)
[2023-05-13] MEDS ORDERED: ACETAMINOPHEN 325 MG TABLET (FP) PO SCH (10:30)
[2023-05-13] MEDS: ACETAMINOPHEN 325 MG TABLET (FP) PO SCH ×3 (10:46→23:43)
[2023-05-13] MEDS ORDERED: MAGNESIUM OXIDE 400 MG TABLET (FP) PO ONE (16:09)
[2023-05-13] MEDS: QUEtiapine FUMARATE 100 MG TABLET (FP) PO SCH (21:49)
[2023-05-13] MEDS: MONTELUKAST NA 10 MG TABLET PO SCH (21:49)
[2023-05-13] MEDS: ATORVASTATIN CA 40 MG TABLET (FP) PO SCH (21:50)
[2023-05-13] MEDS ORDERED: INSULIN (NOVOLOG) ASPART 100 UNITS/ML 10ML VIAL ONE (22:49)
[2023-05-14] MEDS: ALBUTEROL SO4 2.5/IPRATROPIUM 0.5 INH SOL 3 ML VIAL.NEB. NEB SCH ×3 (04:45→11:10)
[2023-05-14] MEDS ORDERED: INSULIN (LEVEMIR) 100 UNITS/ML UNITS SQ ONE (05:29)
[2023-05-14] MEDS: ACETAMINOPHEN 325 MG TABLET (FP) PO SCH ×2 (05:48→13:08)
[2023-05-14] MEDS: INSULIN (NOVOLOG) ASPART 100 UNITS/ML 10ML VIAL SQ SCH ×2 (06:14→12:36)
[2023-05-14] MEDS: INSULIN SLIDING SCALE (NOVOLOG) 1 VIAL SQ SCH ×2 (06:15→12:36)
[2023-05-14] MEDS: INSULIN (LEVEMIR) 100 UNITS/ML UNITS SQ SCH (06:16)
[2023-05-14] MEDS ORDERED: methaDONE HCL 10 MG TABLET (FOR DETOX USE ONLY) PO ONE (08:41)
[2023-05-14] MEDS: TAMSULOSIN HCL 0.4 MG CAP PO SCH (09:52)
[2023-05-14] MEDS: FOLIC ACID 1 MG TABLET (FP) PO SCH (09:52)
[2023-05-14] MEDS: ASPIRIN 81 MG CHEWABLE TABLETS PO SCH (09:52)
[2023-05-14] MEDS: ENALAPRIL MALEATE 10 MG TABLET PO SCH (09:52)
[2023-05-14] MEDS: amLODIPine BESYLATE 10 MG TABLET (FP) PO SCH (09:52)
[2023-05-14] MEDS: LACTULOSE 20 GM/30 ML UDC (FOR ORAL USE ONLY) PO SCH ×3 (09:52→14:52)
[2023-05-14] MEDS: DOXYCYCLINE HYCLATE 100 MG CAPSULE PO SCH (09:52)
[2023-05-14] MEDS: APIXABAN 5 MG TABLET PO SCH (09:52)
[2023-05-14] MEDS: NICOTINE 14 MG/24 HOURS TOPICAL PATCH TD SCH (09:54)
[2023-05-14] MEDS: CEFUROXIME AXETIL 500 MG TABLET PO SCH (10:00)
[2023-05-14] MEDS: COLLAGENASE CLOSTRIDIUM HIST. 30 GRAMS TUBE TP SCH (10:05)
[2023-05-14 10:42] LABS: BASO % 0.9 % (0-2.0); HEMATOCRIT 33.7 % (35.4-49); HEMOGLOBIN 10.9 GM/dL (11.7-16.9); LYMPH % 36.7 % (8-40); MCH 28.5 pg (25.7-33.7); MCHC 32.3 g/dl (32.0-35.9); MEAN CELL VOLUME 88.2 fl (80-96); MEAN PLT VOLUME 8.3 fl (7.5-11.1); MONO % 5.3 % (3.8-10.2); NEUT % 53.1 % (42.8-82.8); PLATELET COUNT 386 10^3/uL (134-434); RBC 3.83 M/mm3 (4.00-5.60); RDW 15.4 % (11.9-15.9)
[2023-05-14 13:35] VITALS: BP 113/64; PULSE 80; RESP 18; TEMP 98.1
== END 2023-05-14 14:11 | disposition other institution (70) | DRG 720 ==
LOC: JER 10:11 → JERBED 12:16 → JICU 14:33 → J8W 05-06 20:32
PROVIDERS: ADMIT Internal Medicine; ATTEND Nurse Practitioner Family
DX: A41.1 Sepsis due to other specified staphylococcus (principal); R65.21 Severe sepsis with septic shock; J18.9 Pneumonia, unspecified organism; L03.115 Cellulitis of right lower limb; F11.20 Opioid dependence, uncomplicated; J44.1 Chronic obstructive pulmonary disease with (acute) exacerbation; F31.81 Bipolar II disorder; I10 Essential (primary) hypertension; E78.5 Hyperlipidemia, unspecified; N40.0 Benign prostatic hyperplasia without lower urinary tract symptoms; K21.9 Gastro-esophageal reflux disease without esophagitis; F19.10 Other psychoactive substance abuse, uncomplicated; F31.9 Bipolar disorder, unspecified; E11.65 Type 2 diabetes mellitus with hyperglycemia; E11.40 Type 2 diabetes mellitus with diabetic neuropathy, unspecified; F17.210 Nicotine dependence, cigarettes, uncomplicated; E87.5 Hyperkalemia
CPT/HCPCS: 36415; 71045-TC-FY; 73610-TC-RT-FY; 73700-TC-RT; 73720-TC; 80048; 80053; 81003; 82140; 82803; 82947; 82962; 83036; 83605; 83690; 83735; 83880; 84100; 84443; 84484; 85025; 85610; 85651; 86140; 87040; 87070; 87086; 87186; 87205; 87899; 93005; 93010; 93306-TC; 94640; 99291

== ENCOUNTER 2023-05-14 14:49 | Inpatient (IN) | payer OTHER ==
[2023-05-14 15:41] VITALS: BMI 26.2
[2023-05-14] MEDS ORDERED: MAG HYDROX/AL HYDROX/SIMETH 30 ML UNIT-DOSE CUP PO PRN (19:55)
[2023-05-14] MEDS ORDERED: MAGNESIUM HYDROX 2400MG/30ML ORAL SUSPENSION 30 ML CUP PO PRN (19:55)
[2023-05-14] MEDS ORDERED: POLYETHYLENE GLYCOL (HEALTHYLAX) 3350 17 GM PACKET PO PRN (19:55)
[2023-05-14] MEDS ORDERED: IBUPROFEN 600 MG TABLET (FP) PO PRN (19:55)
[2023-05-14] MEDS ORDERED: NICOTINE 10 MG CARTRIDGE (INHALER) IH PRN (19:55)
[2023-05-14] MEDS ORDERED: NALOXONE HCL 0.4 MG/ML VIAL IM PRN (19:55)
[2023-05-14] MEDS ORDERED: IBUPROFEN 400 MG TABLET (FP) PO PRN (19:55)
[2023-05-14] MEDS ORDERED: guaiFENesin 600 MG TABLET.ER (FP) PO PRN (19:55)
[2023-05-14] MEDS ORDERED: NICOTINE POLACRILEX 2 MG GUM BUC PRN (19:55)
[2023-05-14] MEDS ORDERED: hydrOXYzine PAMOATE 25 MG CAPSULE (FP) PO PRN (19:55)
[2023-05-14] MEDS ORDERED: BENZONATATE 200 MG CAPSULE PO PRN (19:55)
[2023-05-14] MEDS ORDERED: ACETAMINOPHEN 325 MG TABLET (FP) PO PRN (19:55)
[2023-05-14] MEDS ORDERED: BENZOCAINE/MENTHOL (CHLORASEPTIC ) LOZENGE MM PRN (19:55)
[2023-05-14] MEDS ORDERED: NALOXONE HCL (KLOXXADO) 8 MG SPRAY NS PRN (19:55)
[2023-05-14] MEDS ORDERED: COLLOIDAL OATMEAL 1 BAR EACH TP PRN (19:55)
[2023-05-14] MEDS ORDERED: AMMONIUM LACTATE 12% LOTION 225 GM BOTTLE TP PRN (19:55)
[2023-05-14] MEDS ORDERED: LOPERAMIDE HCL 2 MG CAPSULE PO PRN (19:55)
[2023-05-14] MEDS: MELATONIN 5 MG TABLETS PO SCH (23:04)
[2023-05-14] MEDS: THIAMINE HCL 100 MG TABLET (FP) PO SCH (23:04)
[2023-05-15 01:09] LABS: PH,URINE 5.5 (5.0-8.0); URINE APPEARANCE CLEAR; URINE BILIRUBIN NEGATIVE (NEGATIVE); URINE COLOR YELLOW; URINE GLUCOSE (UA) 1+ (NEGATIVE); URINE KETONE NEGATIVE (NEGATIVE); URINE LEUK ESTERASE NEGATIVE (NEGATIVE); URINE NITRITE NEGATIVE (NEGATIVE); URINE PROTEIN NEGATIVE (NEGATIVE); URINE UROBILINOGEN 0.2 mg/dL (0.2-1.0)
[2023-05-15] MEDS ORDERED: ALBUTEROL SO4 HFA INHALER IH PRN (09:37)
[2023-05-15 10:46] LABS: POTASSIUM 5.5 mmol/L (3.5-5.1)
[2023-05-15 10:54] LABS: CALCIUM 9.2 mg/dL (8.5-10.1)
[2023-05-15 10:55] LABS: ALBUMIN 2.7 g/dl (3.4-5.0); BLOOD UREA NITROGEN 31.3 mg/dL (7-18)
[2023-05-15 10:59] LABS: CREATININE 0.7 mg/dL (0.55-1.3)
[2023-05-15 11:00] LABS: BILIRUBIN,TOTAL 0.2 mg/dL (0.2-1); HEMATOCRIT 32.7 % (35.4-49); HEMOGLOBIN 10.5 GM/dL (11.7-16.9); MCH 28.7 pg (25.7-33.7); MCHC 32.2 g/dl (32.0-35.9); MEAN CELL VOLUME 89.4 fl (80-96); MEAN PLT VOLUME 8.8 fl (7.5-11.1); PLATELET COUNT 454 10^3/uL (134-434); RBC 3.66 M/mm3 (4.00-5.60); RDW 15.5 % (11.9-15.9); TOT PROT 6.3 g/dl (6.4-8.2); WHITE BLOOD COUNT 12.3 K/mm3 (4.0-10.0)
[2023-05-15] MEDS ORDERED: methaDONE HCL 10 MG TABLET PO SCH (11:15)
[2023-05-15] MEDS: INSULIN SLIDING SCALE (NOVOLOG) 1 VIAL SQ SCH ×2 (11:17→16:34)
[2023-05-15] MEDS: COLLAGENASE CLOSTRIDIUM HIST. 30 GRAMS TUBE TP SCH ×2 (11:19→11:25)
[2023-05-15] MEDS: ASPIRIN 81 MG CHEWABLE TABLETS PO SCH (11:20)
[2023-05-15] MEDS: ATORVASTATIN CA 40 MG TABLET (FP) PO SCH (11:20)
[2023-05-15] MEDS: glyBURIDE 5 MG TABLET PO SCH (11:21)
[2023-05-15] MEDS: amLODIPine BESYLATE 10 MG TABLET (FP) PO SCH (11:21)
[2023-05-15] MEDS: APIXABAN 5 MG TABLET PO SCH ×2 (11:21→21:19)
[2023-05-15] MEDS: TAMSULOSIN HCL 0.4 MG CAP PO SCH (11:21)
[2023-05-15] MEDS: DOXYCYCLINE HYCLATE 100 MG CAPSULE PO SCH ×2 (11:21→18:13)
[2023-05-15] MEDS: PRENATAL VITAMINS W/ FOLIC ACID TABLET (FP) PO SCH (11:22)
[2023-05-15] MEDS: CEFUROXIME AXETIL 500 MG TABLET PO SCH ×2 (11:22→21:19)
[2023-05-15] MEDS: ENALAPRIL MALEATE 10 MG TABLET PO SCH (11:30)
[2023-05-15] MEDS ORDERED: INSULIN SLIDING SCALE (NOVOLOG) 1 VIAL SQ ONE (12:08)
[2023-05-15] MEDS: THIAMINE HCL 100 MG TABLET (FP) PO SCH (21:18)
[2023-05-15] MEDS: MELATONIN 5 MG TABLETS PO SCH (21:19)
[2023-05-15] MEDS: QUEtiapine FUMARATE 100 MG TABLET (FP) PO SCH (21:20)
[2023-05-15] MEDS: MONTELUKAST NA 10 MG TABLET PO SCH (21:20)
[2023-05-15] MEDS: INSULIN (LEVEMIR) 100 UNITS/ML UNITS SQ SCH (21:22)
[2023-05-16] MEDS: INSULIN SLIDING SCALE (NOVOLOG) 1 VIAL SQ SCH ×3 (06:19→16:31)
[2023-05-16] MEDS: amLODIPine BESYLATE 10 MG TABLET (FP) PO SCH (09:37)
[2023-05-16] MEDS: PRENATAL VITAMINS W/ FOLIC ACID TABLET (FP) PO SCH (09:37)
[2023-05-16] MEDS: APIXABAN 5 MG TABLET PO SCH ×2 (09:37→21:37)
[2023-05-16] MEDS: ATORVASTATIN CA 40 MG TABLET (FP) PO SCH (09:38)
[2023-05-16] MEDS: CEFUROXIME AXETIL 500 MG TABLET PO SCH ×2 (09:38→21:38)
[2023-05-16] MEDS: ASPIRIN 81 MG CHEWABLE TABLETS PO SCH (09:38)
[2023-05-16] MEDS: TAMSULOSIN HCL 0.4 MG CAP PO SCH (09:38)
[2023-05-16] MEDS: glyBURIDE 5 MG TABLET PO SCH (09:39)
[2023-05-16] MEDS: ENALAPRIL MALEATE 10 MG TABLET PO SCH (10:54)
[2023-05-16] MEDS: DOXYCYCLINE HYCLATE 100 MG CAPSULE PO SCH ×2 (11:12→18:21)
[2023-05-16] MEDS ORDERED: INSULIN SLIDING SCALE (NOVOLOG) 1 VIAL SQ ONE (11:26)
[2023-05-16] MEDS: COLLAGENASE CLOSTRIDIUM HIST. 30 GRAMS TUBE TP SCH ×2 (11:28→12:58)
[2023-05-16 12:40] LABS: POTASSIUM 5.4 mmol/L (3.5-5.1)
[2023-05-16 12:42] LABS: CALCIUM 9.1 mg/dL (8.5-10.1)
[2023-05-16 12:43] LABS: BLOOD UREA NITROGEN 30.9 mg/dL (7-18)
[2023-05-16 12:46] LABS: CREATININE 0.8 mg/dL (0.55-1.3)
[2023-05-16] MEDS ORDERED: SODIUM POLYSTYRENE SULFONATE 15 GM/60 ML BOTTLE PO ONE (13:00)
[2023-05-16] MEDS: THIAMINE HCL 100 MG TABLET (FP) PO SCH (21:37)
[2023-05-16] MEDS: QUEtiapine FUMARATE 100 MG TABLET (FP) PO SCH (21:37)
[2023-05-16] MEDS: MONTELUKAST NA 10 MG TABLET PO SCH (21:37)
[2023-05-16] MEDS: MELATONIN 5 MG TABLETS PO SCH (21:38)
[2023-05-16] MEDS: INSULIN (LEVEMIR) 100 UNITS/ML UNITS SQ SCH (21:40)
[2023-05-17] MEDS: INSULIN SLIDING SCALE (NOVOLOG) 1 VIAL SQ SCH ×3 (06:01→16:37)
[2023-05-17] MEDS ORDERED: ATORVASTATIN CA 20 MG TABLET (FP) ONE (08:12)
[2023-05-17] MEDS: glyBURIDE 5 MG TABLET PO SCH (10:13)
[2023-05-17] MEDS: APIXABAN 5 MG TABLET PO SCH ×2 (10:13→21:26)
[2023-05-17] MEDS: CEFUROXIME AXETIL 500 MG TABLET PO SCH ×2 (10:13→21:25)
[2023-05-17] MEDS: TAMSULOSIN HCL 0.4 MG CAP PO SCH (10:13)
[2023-05-17] MEDS: ENALAPRIL MALEATE 10 MG TABLET PO SCH (10:13)
[2023-05-17] MEDS: ASPIRIN 81 MG CHEWABLE TABLETS PO SCH (10:13)
[2023-05-17] MEDS: ATORVASTATIN CA 40 MG TABLET (FP) PO SCH (10:14)
[2023-05-17] MEDS: amLODIPine BESYLATE 10 MG TABLET (FP) PO SCH (10:14)
[2023-05-17] MEDS: PRENATAL VITAMINS W/ FOLIC ACID TABLET (FP) PO SCH (10:14)
[2023-05-17] MEDS: COLLAGENASE CLOSTRIDIUM HIST. 30 GRAMS TUBE TP SCH ×2 (10:14)
[2023-05-17] MEDS: DOXYCYCLINE HYCLATE 100 MG CAPSULE PO SCH (10:15)
[2023-05-17 10:20] LABS: HEMATOCRIT 33.4 % (35.4-49); HEMOGLOBIN 10.9 GM/dL (11.7-16.9); MCH 29.4 pg (25.7-33.7); MCHC 32.6 g/dl (32.0-35.9); MEAN CELL VOLUME 90.2 fl (80-96); PLATELET COUNT 490 10^3/uL (134-434); RBC 3.71 M/mm3 (4.00-5.60); WHITE BLOOD COUNT 11.7 K/mm3 (4.0-10.0)
[2023-05-17 14:58] LABS: POTASSIUM 4.7 mmol/L (3.5-5.1)
[2023-05-17 15:00] LABS: CALCIUM 9.3 mg/dL (8.5-10.1)
[2023-05-17 15:01] LABS: ALBUMIN 2.9 g/dl (3.4-5.0); BLOOD UREA NITROGEN 27.2 mg/dL (7-18)
[2023-05-17 15:04] LABS: CREATININE 0.7 mg/dL (0.55-1.3)
[2023-05-17 15:06] LABS: BILIRUBIN,TOTAL 0.2 mg/dL (0.2-1)
[2023-05-17] MEDS: DOXYCYCLINE HYCLATE 100 MG TABLET PO SCH (17:24)
[2023-05-17] MEDS: QUEtiapine FUMARATE 100 MG TABLET (FP) PO SCH (21:25)
[2023-05-17] MEDS: MELATONIN 5 MG TABLETS PO SCH (21:26)
[2023-05-17] MEDS: THIAMINE HCL 100 MG TABLET (FP) PO SCH (21:26)
[2023-05-17] MEDS: MONTELUKAST NA 10 MG TABLET PO SCH (21:26)
[2023-05-17] MEDS: INSULIN (LEVEMIR) 100 UNITS/ML UNITS SQ SCH (22:16)
[2023-05-18] MEDS: INSULIN SLIDING SCALE (NOVOLOG) 1 VIAL SQ SCH ×3 (06:04→16:18)
[2023-05-18] MEDS: glyBURIDE 5 MG TABLET PO SCH (07:37)
[2023-05-18] MEDS: CEFUROXIME AXETIL 500 MG TABLET PO SCH ×2 (10:11→21:10)
[2023-05-18] MEDS: amLODIPine BESYLATE 10 MG TABLET (FP) PO SCH (10:11)
[2023-05-18] MEDS: APIXABAN 5 MG TABLET PO SCH ×2 (10:11→21:09)
[2023-05-18] MEDS: COLLAGENASE CLOSTRIDIUM HIST. 30 GRAMS TUBE TP SCH ×2 (10:11→10:12)
[2023-05-18] MEDS: TAMSULOSIN HCL 0.4 MG CAP PO SCH (10:11)
[2023-05-18] MEDS: ATORVASTATIN CA 40 MG TABLET (FP) PO SCH (10:11)
[2023-05-18] MEDS: ASPIRIN 81 MG CHEWABLE TABLETS PO SCH (10:11)
[2023-05-18] MEDS: PRENATAL VITAMINS W/ FOLIC ACID TABLET (FP) PO SCH (10:11)
[2023-05-18] MEDS: ENALAPRIL MALEATE 10 MG TABLET PO SCH (10:11)
[2023-05-18] MEDS: DOXYCYCLINE HYCLATE 100 MG TABLET PO SCH ×2 (10:12→17:33)
[2023-05-18] MEDS: MONTELUKAST NA 10 MG TABLET PO SCH (21:09)
[2023-05-18] MEDS: QUEtiapine FUMARATE 100 MG TABLET (FP) PO SCH (21:09)
[2023-05-18] MEDS: MELATONIN 5 MG TABLETS PO SCH (21:09)
[2023-05-18] MEDS: INSULIN (LEVEMIR) 100 UNITS/ML UNITS SQ SCH (21:10)
[2023-05-18] MEDS: THIAMINE HCL 100 MG TABLET (FP) PO SCH (21:10)
[2023-05-19] MEDS: glyBURIDE 5 MG TABLET PO SCH (06:23)
[2023-05-19] MEDS: INSULIN SLIDING SCALE (NOVOLOG) 1 VIAL SQ SCH ×3 (06:28→16:24)
[2023-05-19] MEDS: APIXABAN 5 MG TABLET PO SCH ×2 (10:42→21:24)
[2023-05-19] MEDS: amLODIPine BESYLATE 10 MG TABLET (FP) PO SCH (10:42)
[2023-05-19] MEDS: ATORVASTATIN CA 40 MG TABLET (FP) PO SCH (10:42)
[2023-05-19] MEDS: ASPIRIN 81 MG CHEWABLE TABLETS PO SCH (10:42)
[2023-05-19] MEDS: DOXYCYCLINE HYCLATE 100 MG TABLET PO SCH ×2 (10:42→18:36)
[2023-05-19] MEDS: TAMSULOSIN HCL 0.4 MG CAP PO SCH (10:42)
[2023-05-19] MEDS: PRENATAL VITAMINS W/ FOLIC ACID TABLET (FP) PO SCH (10:42)
[2023-05-19] MEDS: CEFUROXIME AXETIL 500 MG TABLET PO SCH ×2 (10:43→21:24)
[2023-05-19] MEDS: ENALAPRIL MALEATE 10 MG TABLET PO SCH (10:44)
[2023-05-19] MEDS: COLLAGENASE CLOSTRIDIUM HIST. 30 GRAMS TUBE TP SCH ×3 (10:44→10:45)
[2023-05-19] MEDS ORDERED: INSULIN SLIDING SCALE (NOVOLOG) 1 VIAL SQ ONE (12:22)
[2023-05-19] MEDS: QUEtiapine FUMARATE 100 MG TABLET (FP) PO SCH (21:24)
[2023-05-19] MEDS: THIAMINE HCL 100 MG TABLET (FP) PO SCH (21:24)
[2023-05-19] MEDS: INSULIN (LEVEMIR) 100 UNITS/ML UNITS SQ SCH (21:24)
[2023-05-19] MEDS: MELATONIN 5 MG TABLETS PO SCH (21:24)
[2023-05-19] MEDS: MONTELUKAST NA 10 MG TABLET PO SCH (21:24)
[2023-05-20] MEDS: glyBURIDE 5 MG TABLET PO SCH (06:24)
[2023-05-20] MEDS: INSULIN SLIDING SCALE (NOVOLOG) 1 VIAL SQ SCH ×3 (06:45→16:23)
[2023-05-20] MEDS: COLLAGENASE CLOSTRIDIUM HIST. 30 GRAMS TUBE TP SCH ×2 (09:38→09:39)
[2023-05-20] MEDS: ASPIRIN 81 MG CHEWABLE TABLETS PO SCH (09:39)
[2023-05-20] MEDS: TAMSULOSIN HCL 0.4 MG CAP PO SCH (09:39)
[2023-05-20] MEDS: ATORVASTATIN CA 40 MG TABLET (FP) PO SCH (09:39)
[2023-05-20] MEDS: amLODIPine BESYLATE 10 MG TABLET (FP) PO SCH (09:39)
[2023-05-20] MEDS: APIXABAN 5 MG TABLET PO SCH ×2 (09:39→21:14)
[2023-05-20] MEDS: PRENATAL VITAMINS W/ FOLIC ACID TABLET (FP) PO SCH (09:40)
[2023-05-20] MEDS: ENALAPRIL MALEATE 10 MG TABLET PO SCH (09:40)
[2023-05-20] MEDS ORDERED: TUBERCULIN PPD 5 TU/0.1ML SYRINGE (IN PATIENT USE ONLY) ID ONE (10:00)
[2023-05-20] MEDS ORDERED: INSULIN SLIDING SCALE (NOVOLOG) 1 VIAL SQ ONE (12:22)
[2023-05-20] MEDS: MELATONIN 5 MG TABLETS PO SCH (21:13)
[2023-05-20] MEDS: THIAMINE HCL 100 MG TABLET (FP) PO SCH (21:13)
[2023-05-20] MEDS: QUEtiapine FUMARATE 100 MG TABLET (FP) PO SCH (21:13)
[2023-05-20] MEDS: MONTELUKAST NA 10 MG TABLET PO SCH (21:14)
[2023-05-20] MEDS: INSULIN (LEVEMIR) 100 UNITS/ML UNITS SQ SCH (21:14)
[2023-05-21] MEDS: glyBURIDE 5 MG TABLET PO SCH (06:26)
[2023-05-21] MEDS ORDERED: INSULIN SLIDING SCALE (NOVOLOG) 1 VIAL SQ ONE (06:28)
[2023-05-21] MEDS: INSULIN SLIDING SCALE (NOVOLOG) 1 VIAL SQ SCH (06:28)
[2023-05-21 06:59] VITALS: RESP 18; TEMP 97.7
[2023-05-21 09:48] VITALS: BP 107/64; PULSE 78
[2023-05-21] MEDS: ENALAPRIL MALEATE 10 MG TABLET PO SCH (10:00)
[2023-05-21] MEDS: PRENATAL VITAMINS W/ FOLIC ACID TABLET (FP) PO SCH (10:00)
[2023-05-21] MEDS: ATORVASTATIN CA 40 MG TABLET (FP) PO SCH (10:01)
[2023-05-21] MEDS: APIXABAN 5 MG TABLET PO SCH (10:01)
[2023-05-21] MEDS: ASPIRIN 81 MG CHEWABLE TABLETS PO SCH (10:01)
[2023-05-21] MEDS: TAMSULOSIN HCL 0.4 MG CAP PO SCH (10:01)
[2023-05-21] MEDS: amLODIPine BESYLATE 10 MG TABLET (FP) PO SCH (10:02)
== END 2023-05-21 10:38 | disposition home or self-care (01) | DRG 772 ==
LOC: YASAS 14:49 → Y3W 21:10
PROVIDERS: ADMIT Allergy & Immunology; ATTEND Psychiatry & Neurology Pain Medicine
PROC: HZ42ZZZ Group Counseling for Substance Abuse Treatment, Cognitive-Behavioral (ICD-10-PCS; principal; 2023-05-14)
DX: F11.20 Opioid dependence, uncomplicated (principal); F10.20 Alcohol dependence, uncomplicated; F14.20 Cocaine dependence, uncomplicated; F17.210 Nicotine dependence, cigarettes, uncomplicated; F19.280 Other psychoactive substance dependence with psychoactive substance-induced anxiety disorder; F19.282 Other psychoactive substance dependence with psychoactive substance-induced sleep disorder; F31.9 Bipolar disorder, unspecified; E78.5 Hyperlipidemia, unspecified; I10 Essential (primary) hypertension; E11.9 Type 2 diabetes mellitus without complications; K21.9 Gastro-esophageal reflux disease without esophagitis; L03.113 Cellulitis of right upper limb; J43.0 Unilateral pulmonary emphysema [MacLeod's syndrome]; N40.0 Benign prostatic hyperplasia without lower urinary tract symptoms; Z86.718 Personal history of other venous thrombosis and embolism; Z79.01 Long term (current) use of anticoagulants; Z88.8 Allergy status to other drugs, medicaments and biological substances; Z91.041 Radiographic dye allergy status
CPT/HCPCS: 36415; 80048; 80053; 81003; 82962; 85027; 86480; 86780; 87635; 87811

== ENCOUNTER 2023-06-26 10:58 | Inpatient (IN) | payer OTHER ==
[2023-06-26 11:20] VITALS: BMI 24.4
[2023-06-26] MEDS ORDERED: NALOXONE HCL (KLOXXADO) 8 MG SPRAY NS PRN (11:55)
[2023-06-26] MEDS ORDERED: LORazepam 1 MG TABLET PO PRN (11:55)
[2023-06-26] MEDS ORDERED: NALOXONE HCL 0.4 MG/ML VIAL IM PRN (11:55)
[2023-06-26] MEDS ORDERED: NICOTINE POLACRILEX 2 MG GUM BUC PRN (11:55)
[2023-06-26] MEDS ORDERED: ACETAMINOPHEN 325 MG TABLET (FP) PO PRN (11:55)
[2023-06-26] MEDS ORDERED: BENZONATATE 200 MG CAPSULE PO PRN (11:55)
[2023-06-26] MEDS ORDERED: ONDANSETRON *ODT* 4 MG TABLET SL PRN (11:55)
[2023-06-26] MEDS ORDERED: MAG HYDROX/AL HYDROX/SIMETH 30 ML UNIT-DOSE CUP PO PRN (11:55)
[2023-06-26] MEDS ORDERED: DICYCLOMINE HCL 10 MG CAPSULE PO PRN (11:55)
[2023-06-26] MEDS ORDERED: MAGNESIUM HYDROX 2400MG/30ML ORAL SUSPENSION 30 ML CUP PO PRN (11:55)
[2023-06-26] MEDS ORDERED: BENZOCAINE/MENTHOL (CHLORASEPTIC ) LOZENGE MM PRN (11:55)
[2023-06-26] MEDS ORDERED: METHOCARBAMOL 500 MG TABLET PO PRN (11:55)
[2023-06-26] MEDS ORDERED: LOPERAMIDE HCL 2 MG CAPSULE PO PRN (11:55)
[2023-06-26] MEDS ORDERED: BISMUTH SUBSALICYLATE 524 MG/30 ML PO PRN (11:55)
[2023-06-26] MEDS ORDERED: POLYETHYLENE GLYCOL (HEALTHYLAX) 3350 17 GM PACKET PO PRN (11:55)
[2023-06-26] MEDS ORDERED: guaiFENesin 600 MG TABLET.ER (FP) PO PRN (11:55)
[2023-06-26] MEDS ORDERED: hydrOXYzine PAMOATE 25 MG CAPSULE (FP) PO PRN (11:55)
[2023-06-26] MEDS ORDERED: IBUPROFEN 600 MG TABLET (FP) PO PRN (11:55)
[2023-06-26] MEDS ORDERED: IBUPROFEN 400 MG TABLET (FP) PO PRN (11:55)
[2023-06-26] MEDS ORDERED: ALBUTEROL SO4 HFA INHALER IH PRN (13:28)
[2023-06-26] MEDS: TAMSULOSIN HCL 0.4 MG CAP PO SCH (14:18)
[2023-06-26] MEDS: ASPIRIN 81 MG CHEWABLE TABLETS PO SCH (14:18)
[2023-06-26] MEDS: LORazepam 2 MG TABLET PO SCH ×2 (16:57→22:22)
[2023-06-26] MEDS: INSULIN SLIDING SCALE (NOVOLOG) 1 VIAL SQ SCH (17:02)
[2023-06-26] MEDS ORDERED: INSULIN (LEVEMIR) 100 UNITS/ML UNITS SQ SCH (22:00)
[2023-06-26] MEDS: THIAMINE HCL 100 MG TABLET (FP) PO SCH (22:22)
[2023-06-26] MEDS: MELATONIN 5 MG TABLETS PO SCH (22:22)
[2023-06-26] MEDS: MONTELUKAST NA 10 MG TABLET PO SCH (22:23)
[2023-06-26] MEDS: ATORVASTATIN CA 40 MG TABLET (FP) PO SCH (22:23)
[2023-06-26] MEDS: APIXABAN 5 MG TABLET PO SCH (22:23)
[2023-06-27] MEDS: LORazepam 2 MG TABLET PO SCH ×4 (05:55→22:12)
[2023-06-27] MEDS ORDERED: methaDONE HCL 10 MG TABLET PO ONE (06:00)
[2023-06-27] MEDS: INSULIN SLIDING SCALE (NOVOLOG) 1 VIAL SQ SCH ×3 (08:24→16:49)
[2023-06-27] MEDS: glyBURIDE 5 MG TABLET PO SCH (10:34)
[2023-06-27] MEDS: ASPIRIN 81 MG CHEWABLE TABLETS PO SCH (10:34)
[2023-06-27] MEDS: APIXABAN 5 MG TABLET PO SCH ×2 (10:35→22:12)
[2023-06-27] MEDS: amLODIPine BESYLATE 10 MG TABLET (FP) PO SCH (10:35)
[2023-06-27] MEDS: TAMSULOSIN HCL 0.4 MG CAP PO SCH (10:35)
[2023-06-27] MEDS: PRENATAL VITAMINS W/ FOLIC ACID TABLET (FP) PO SCH (10:35)
[2023-06-27] MEDS: ENALAPRIL MALEATE 10 MG TABLET PO SCH (10:35)
[2023-06-27] MEDS: NICOTINE 7 MG/24 HOURS TOPICAL PATCH TD SCH (10:36)
[2023-06-27 11:44] LABS: POTASSIUM 4.2 mmol/L (3.5-5.1)
[2023-06-27 11:46] LABS: HEMATOCRIT 34.3 % (35.4-49); MCH 29.7 pg (25.7-33.7); MCHC 32.1 g/dl (32.0-35.9); MEAN CELL VOLUME 92.5 fl (80-96); MEAN PLT VOLUME 9.4 fl (7.5-11.1); PLATELET COUNT 409 10^3/uL (134-434); RBC 3.71 M/mm3 (4.00-5.60); RDW 15.4 % (11.9-15.9)
[2023-06-27 11:48] LABS: BLOOD UREA NITROGEN 26.6 mg/dL (7-18)
[2023-06-27 11:50] LABS: ALBUMIN 3.2 g/dl (3.4-5.0)
[2023-06-27 11:52] LABS: CREATININE 0.7 mg/dL (0.55-1.3)
[2023-06-27 11:54] LABS: BILIRUBIN,TOTAL 0.3 mg/dL (0.2-1); TOT PROT 6.5 g/dl (6.4-8.2)
[2023-06-27] MEDS ORDERED: PNEUMOC 20-VAL CONJ-DIP CRM/PF 0.5 ML SYRINGE IM ONE (13:03)
[2023-06-27] MEDS ORDERED: INSULIN (LEVEMIR) 100 UNITS/ML UNITS SQ SCH (15:56)
[2023-06-27] MEDS: MELATONIN 5 MG TABLETS PO SCH (22:12)
[2023-06-27] MEDS: MONTELUKAST NA 10 MG TABLET PO SCH (22:12)
[2023-06-27] MEDS: THIAMINE HCL 100 MG TABLET (FP) PO SCH (22:12)
[2023-06-27] MEDS: ATORVASTATIN CA 40 MG TABLET (FP) PO SCH (22:12)
[2023-06-28] MEDS: LORazepam 1 MG TABLET PO SCH ×4 (06:01→23:17)
[2023-06-28] MEDS: INSULIN SLIDING SCALE (NOVOLOG) 1 VIAL SQ SCH ×3 (06:02→17:46)
[2023-06-28] MEDS: amLODIPine BESYLATE 10 MG TABLET (FP) PO SCH (10:30)
[2023-06-28] MEDS: ENALAPRIL MALEATE 10 MG TABLET PO SCH (10:30)
[2023-06-28] MEDS: ASPIRIN 81 MG CHEWABLE TABLETS PO SCH (10:30)
[2023-06-28] MEDS: APIXABAN 5 MG TABLET PO SCH ×2 (10:30→22:58)
[2023-06-28] MEDS: PRENATAL VITAMINS W/ FOLIC ACID TABLET (FP) PO SCH (10:30)
[2023-06-28] MEDS: NICOTINE 7 MG/24 HOURS TOPICAL PATCH TD SCH (10:30)
[2023-06-28] MEDS: glyBURIDE 5 MG TABLET PO SCH (10:30)
[2023-06-28] MEDS: TAMSULOSIN HCL 0.4 MG CAP PO SCH (10:30)
[2023-06-28] MEDS ORDERED: INSULIN (NOVOLOG) ASPART 100 UNITS/ML 10ML VIAL ONE (11:48)
[2023-06-28] MEDS ORDERED: DOXYCYCLINE HYCLATE 100 MG CAPSULE PO SCH (18:00)
[2023-06-28] MEDS: DOXYCYCLINE HYCLATE 100 MG TABLET PO SCH (18:55)
[2023-06-28] MEDS: INSULIN (LEVEMIR) 100 UNITS/ML UNITS SQ SCH (22:58)
[2023-06-28] MEDS: MONTELUKAST NA 10 MG TABLET PO SCH (22:59)
[2023-06-28] MEDS: ATORVASTATIN CA 40 MG TABLET (FP) PO SCH (22:59)
[2023-06-28] MEDS: QUEtiapine FUMARATE 100 MG TABLET (FP) PO SCH (22:59)
[2023-06-28] MEDS: MELATONIN 5 MG TABLETS PO SCH (22:59)
[2023-06-28] MEDS: THIAMINE HCL 100 MG TABLET (FP) PO SCH (22:59)
[2023-06-29] MEDS ORDERED: LORazepam 0.5 MG TABLET PO PRN
[2023-06-29] MEDS: LORazepam 0.5 MG TABLET PO SCH ×4 (05:31→22:08)
[2023-06-29] MEDS ORDERED: INSULIN (NOVOLOG) ASPART 100 UNITS/ML 10ML VIAL ONE ×2 (05:36→11:45)
[2023-06-29] MEDS: INSULIN SLIDING SCALE (NOVOLOG) 1 VIAL SQ SCH ×3 (06:04→17:17)
[2023-06-29] MEDS: ENALAPRIL MALEATE 10 MG TABLET PO SCH (09:54)
[2023-06-29] MEDS: TAMSULOSIN HCL 0.4 MG CAP PO SCH (09:54)
[2023-06-29] MEDS: NICOTINE 7 MG/24 HOURS TOPICAL PATCH TD SCH (09:54)
[2023-06-29] MEDS: glyBURIDE 5 MG TABLET PO SCH (09:54)
[2023-06-29] MEDS: APIXABAN 5 MG TABLET PO SCH ×2 (09:54→22:07)
[2023-06-29] MEDS: ASPIRIN 81 MG CHEWABLE TABLETS PO SCH (09:54)
[2023-06-29] MEDS: DOXYCYCLINE HYCLATE 100 MG TABLET PO SCH ×2 (09:55→17:41)
[2023-06-29] MEDS: amLODIPine BESYLATE 10 MG TABLET (FP) PO SCH (09:57)
[2023-06-29] MEDS: PRENATAL VITAMINS W/ FOLIC ACID TABLET (FP) PO SCH (10:00)
[2023-06-29] MEDS ORDERED: glyBURIDE 5 MG TABLET PO SCH (10:08)
[2023-06-29] MEDS ORDERED: TAMSULOSIN HCL 0.4 MG CAP PO SCH ×2 (10:17→10:49)
[2023-06-29 10:44] LABS: INR 1.1 (0.83-1.09); PROTHROMBIN TIME (PATIENT) 12.8 SEC (9.7-13.0)
[2023-06-29] MEDS: MELATONIN 5 MG TABLETS PO SCH (22:07)
[2023-06-29] MEDS: MONTELUKAST NA 10 MG TABLET PO SCH (22:07)
[2023-06-29] MEDS: QUEtiapine FUMARATE 100 MG TABLET (FP) PO SCH (22:07)
[2023-06-29] MEDS: INSULIN (LEVEMIR) 100 UNITS/ML UNITS SQ SCH (22:07)
[2023-06-29] MEDS: ATORVASTATIN CA 40 MG TABLET (FP) PO SCH (22:07)
[2023-06-29] MEDS: THIAMINE HCL 100 MG TABLET (FP) PO SCH (22:09)
[2023-06-30] MEDS ORDERED: LORazepam 0.5 MG TABLET PO ONE (05:00)
[2023-06-30] MEDS: INSULIN SLIDING SCALE (NOVOLOG) 1 VIAL SQ SCH ×2 (07:41→11:39)
[2023-06-30] MEDS: amLODIPine BESYLATE 10 MG TABLET (FP) PO SCH (09:55)
[2023-06-30] MEDS: ASPIRIN 81 MG CHEWABLE TABLETS PO SCH (09:55)
[2023-06-30] MEDS: DOXYCYCLINE HYCLATE 100 MG TABLET PO SCH (09:55)
[2023-06-30] MEDS: APIXABAN 5 MG TABLET PO SCH (09:55)
[2023-06-30] MEDS: ENALAPRIL MALEATE 10 MG TABLET PO SCH (09:55)
[2023-06-30] MEDS: PRENATAL VITAMINS W/ FOLIC ACID TABLET (FP) PO SCH (09:55)
[2023-06-30] MEDS: NICOTINE 7 MG/24 HOURS TOPICAL PATCH TD SCH (09:58)
[2023-06-30 13:19] VITALS: BP 117/62; PULSE 71; RESP 18; TEMP 97.1
== END 2023-06-30 13:48 | disposition home or self-care (01) | DRG 773 ==
LOC: YASAS 10:58 → Y6N 12:57
PROVIDERS: ADMIT Allergy & Immunology; ATTEND Allergy & Immunology
PROC: HZ2ZZZZ Detoxification Services for Substance Abuse Treatment (ICD-10-PCS; principal; 2023-06-26)
DX: F10.230 Alcohol dependence with withdrawal, uncomplicated (principal); F11.20 Opioid dependence, uncomplicated; F14.20 Cocaine dependence, uncomplicated; F12.20 Cannabis dependence, uncomplicated; F17.213 Nicotine dependence, cigarettes, with withdrawal; F25.9 Schizoaffective disorder, unspecified; F31.9 Bipolar disorder, unspecified; F19.94 Other psychoactive substance use, unspecified with psychoactive substance-induced mood disorder; F19.982 Other psychoactive substance use, unspecified with psychoactive substance-induced sleep disorder; I10 Essential (primary) hypertension; E78.5 Hyperlipidemia, unspecified; J43.0 Unilateral pulmonary emphysema [MacLeod's syndrome]; N40.0 Benign prostatic hyperplasia without lower urinary tract symptoms; E11.9 Type 2 diabetes mellitus without complications; M19.90 Unspecified osteoarthritis, unspecified site; L03.115 Cellulitis of right lower limb; R79.89 Other specified abnormal findings of blood chemistry; K21.9 Gastro-esophageal reflux disease without esophagitis; M54.50 Low back pain, unspecified; G89.29 Other chronic pain; R26.2 Difficulty in walking, not elsewhere classified; Z99.89 Dependence on other enabling machines and devices; Z88.8 Allergy status to other drugs, medicaments and biological substances; Z96.643 Presence of artificial hip joint, bilateral; Z86.718 Personal history of other venous thrombosis and embolism; Z86.711 Personal history of pulmonary embolism; Z79.4 Long term (current) use of insulin; Z91.51 Personal history of suicidal behavior; Z56.0 Unemployment, unspecified; Z59.00 Homelessness unspecified
CPT/HCPCS: 36415; 71046-TC-FY; 80053; 82962; 85027; 85610; 86780; 87635; 90677

== ENCOUNTER 2023-08-27 17:34 | Inpatient (IN) | payer OTHER ==
[2023-08-27 18:10] VITALS: BMI 23.0
[2023-08-27] MEDS ORDERED: ALBUTEROL SO4 HFA INHALER IH PRN (20:05)
[2023-08-27] MEDS ORDERED: ACETAMINOPHEN 325 MG TABLET (FP) PO PRN (20:23)
[2023-08-27] MEDS ORDERED: NALOXONE HCL (KLOXXADO) 8 MG SPRAY NS PRN (20:23)
[2023-08-27] MEDS ORDERED: NALOXONE HCL 0.4 MG/ML VIAL IM PRN (20:23)
[2023-08-27] MEDS ORDERED: BENZONATATE 200 MG CAPSULE PO PRN (20:23)
[2023-08-27] MEDS ORDERED: guaiFENesin 600 MG TABLET.ER (FP) PO PRN (20:23)
[2023-08-27] MEDS ORDERED: NICOTINE POLACRILEX 2 MG GUM BUC PRN (20:23)
[2023-08-27] MEDS ORDERED: BENZOCAINE/MENTHOL (CHLORASEPTIC ) LOZENGE MM PRN (20:23)
[2023-08-27] MEDS ORDERED: MAG HYDROX/AL HYDROX/SIMETH 30 ML UNIT-DOSE CUP PO PRN (20:23)
[2023-08-27] MEDS ORDERED: hydrOXYzine PAMOATE 25 MG CAPSULE (FP) PO PRN (20:23)
[2023-08-27] MEDS ORDERED: METHOCARBAMOL 500 MG TABLET PO PRN (20:23)
[2023-08-27] MEDS ORDERED: DICYCLOMINE HCL 10 MG CAPSULE PO PRN (20:23)
[2023-08-27] MEDS ORDERED: POLYETHYLENE GLYCOL (HEALTHYLAX) 3350 17 GM PACKET PO PRN (20:23)
[2023-08-27] MEDS ORDERED: ONDANSETRON *ODT* 4 MG TABLET SL PRN (20:23)
[2023-08-27] MEDS ORDERED: MAGNESIUM HYDROX 2400MG/30ML ORAL SUSPENSION 30 ML CUP PO PRN (20:23)
[2023-08-27] MEDS ORDERED: LOPERAMIDE HCL 2 MG CAPSULE PO PRN (20:23)
[2023-08-27] MEDS ORDERED: P-EPHED 60MG/TRIPROLIDI 2.5MG TABLET PO PRN (20:23)
[2023-08-27] MEDS: COLLAGENASE CLOSTRIDIUM HIST. 30 GRAMS TUBE TP SCH (21:10)
[2023-08-27] MEDS: MELATONIN 5 MG TABLETS PO SCH (22:48)
[2023-08-27] MEDS: THIAMINE HCL 100 MG TABLET (FP) PO SCH (22:48)
[2023-08-27] MEDS: MONTELUKAST NA 10 MG TABLET PO SCH (22:48)
[2023-08-27] MEDS: CEFUROXIME AXETIL 500 MG TABLET PO SCH (22:48)
[2023-08-27] MEDS: ATORVASTATIN CA 40 MG TABLET (FP) PO SCH (22:48)
[2023-08-27] MEDS: APIXABAN 5 MG TABLET PO SCH (22:48)
[2023-08-27] MEDS: INSULIN SLIDING SCALE (NOVOLOG) 1 VIAL SQ SCH (22:51)
[2023-08-28] MEDS: INSULIN SLIDING SCALE (NOVOLOG) 1 VIAL SQ SCH ×5 (07:13→22:57)
[2023-08-28] MEDS: glyBURIDE 5 MG TABLET PO SCH (07:28)
[2023-08-28] MEDS ORDERED: methaDONE HCL 10 MG TABLET PO SCH ×2 (08:45)
[2023-08-28] MEDS ORDERED: glyBURIDE 5 MG TABLET PO SCH (10:00)
[2023-08-28] MEDS: ASPIRIN 81 MG CHEWABLE TABLETS PO SCH (10:37)
[2023-08-28] MEDS: FOLIC ACID 1 MG TABLET (FP) PO SCH (10:37)
[2023-08-28] MEDS: TAMSULOSIN HCL 0.4 MG CAP PO SCH (10:37)
[2023-08-28] MEDS: APIXABAN 5 MG TABLET PO SCH ×2 (10:37→22:31)
[2023-08-28] MEDS: CEFUROXIME AXETIL 500 MG TABLET PO SCH ×2 (10:37→22:31)
[2023-08-28] MEDS: NICOTINE 14 MG/24 HOURS TOPICAL PATCH TD SCH (10:38)
[2023-08-28] MEDS: COLLAGENASE CLOSTRIDIUM HIST. 30 GRAMS TUBE TP SCH (10:38)
[2023-08-28] MEDS: PRENATAL VITAMINS W/ FOLIC ACID TABLET (FP) PO SCH (10:38)
[2023-08-28] MEDS: amLODIPine BESYLATE 10 MG TABLET (FP) PO SCH (10:38)
[2023-08-28] MEDS ORDERED: diazePAM 5 MG TABLET PO PRN (11:05)
[2023-08-28] MEDS: diazePAM 5 MG TABLET PO SCH ×3 (11:23→22:32)
[2023-08-28 11:53] LABS: HEMATOCRIT 36.6 % (35.4-49); HEMOGLOBIN 11.8 GM/dL (11.7-16.9); MCH 28.7 pg (25.7-33.7); MCHC 32.2 g/dl (32.0-35.9); MEAN CELL VOLUME 89.1 fl (80-96); MEAN PLT VOLUME 9.9 fl (7.5-11.1); PLATELET COUNT 258 10^3/uL (134-434); RBC 4.11 M/mm3 (4.00-5.60); RDW 14.4 % (11.9-15.9); WHITE BLOOD COUNT 9.2 K/mm3 (4.0-10.0)
[2023-08-28 11:56] LABS: CHLORIDE 115 mmol/L (98-107); SODIUM 146 mmol/L (136-145)
[2023-08-28 12:00] LABS: ANION GAP 3 MMOL/L (8-16); BLOOD UREA NITROGEN 16.8 mg/dL (7-18); CALCIUM 8.3 mg/dL (8.5-10.1); CO2 28 mmol/L (21-32); GLUCOSE,RANDOM 58 mg/dL (74-106)
[2023-08-28 12:03] LABS: CREATININE 0.7 mg/dL (0.55-1.3); SGOT/AST 38 U/L (15-37); SGPT/ALT 47 U/L (13-61)
[2023-08-28 12:05] LABS: BILIRUBIN,TOTAL < 0.1 mg/dL (0.2-1); TOT PROT 6.5 g/dl (6.4-8.2)
[2023-08-28 12:06] LABS: ALK PHOS 97 U/L (45-117)
[2023-08-28] MEDS: ATORVASTATIN CA 40 MG TABLET (FP) PO SCH (22:31)
[2023-08-28] MEDS: MONTELUKAST NA 10 MG TABLET PO SCH (22:31)
[2023-08-28] MEDS: MELATONIN 5 MG TABLETS PO SCH (22:31)
[2023-08-28] MEDS: THIAMINE HCL 100 MG TABLET (FP) PO SCH (22:31)
[2023-08-29] MEDS: diazePAM 5 MG TABLET PO SCH ×4 (05:59→22:46)
[2023-08-29] MEDS: glyBURIDE 5 MG TABLET PO SCH (06:01)
[2023-08-29] MEDS: INSULIN SLIDING SCALE (NOVOLOG) 1 VIAL SQ SCH ×4 (06:34→22:55)
[2023-08-29] MEDS ORDERED: INSULIN SLIDING SCALE (NOVOLOG) 1 VIAL SQ ONE (06:34)
[2023-08-29] MEDS: TAMSULOSIN HCL 0.4 MG CAP PO SCH (10:08)
[2023-08-29] MEDS: amLODIPine BESYLATE 10 MG TABLET (FP) PO SCH (10:08)
[2023-08-29] MEDS: ASPIRIN 81 MG CHEWABLE TABLETS PO SCH (10:08)
[2023-08-29] MEDS: CEFUROXIME AXETIL 500 MG TABLET PO SCH ×2 (10:08→22:46)
[2023-08-29] MEDS: APIXABAN 5 MG TABLET PO SCH ×2 (10:08→22:46)
[2023-08-29] MEDS: FOLIC ACID 1 MG TABLET (FP) PO SCH (10:09)
[2023-08-29] MEDS: PRENATAL VITAMINS W/ FOLIC ACID TABLET (FP) PO SCH (10:09)
[2023-08-29] MEDS: NICOTINE 14 MG/24 HOURS TOPICAL PATCH TD SCH (10:09)
[2023-08-29] MEDS: COLLAGENASE CLOSTRIDIUM HIST. 30 GRAMS TUBE TP SCH (10:10)
[2023-08-29] MEDS: ATORVASTATIN CA 40 MG TABLET (FP) PO SCH (22:45)
[2023-08-29] MEDS: MONTELUKAST NA 10 MG TABLET PO SCH (22:45)
[2023-08-29] MEDS: QUEtiapine FUMARATE 100 MG TABLET (FP) PO SCH (22:45)
[2023-08-29] MEDS: MELATONIN 5 MG TABLETS PO SCH (22:46)
[2023-08-29] MEDS: THIAMINE HCL 100 MG TABLET (FP) PO SCH (22:46)
[2023-08-30] MEDS: diazePAM 5 MG TABLET PO SCH ×3 (06:06→22:00)
[2023-08-30] MEDS: INSULIN SLIDING SCALE (NOVOLOG) 1 VIAL SQ SCH ×4 (06:59→21:33)
[2023-08-30] MEDS: glyBURIDE 5 MG TABLET PO SCH (06:59)
[2023-08-30] MEDS: amLODIPine BESYLATE 10 MG TABLET (FP) PO SCH (10:21)
[2023-08-30] MEDS: NICOTINE 14 MG/24 HOURS TOPICAL PATCH TD SCH (10:21)
[2023-08-30] MEDS: PRENATAL VITAMINS W/ FOLIC ACID TABLET (FP) PO SCH (10:21)
[2023-08-30] MEDS: FOLIC ACID 1 MG TABLET (FP) PO SCH (10:21)
[2023-08-30] MEDS: COLLAGENASE CLOSTRIDIUM HIST. 30 GRAMS TUBE TP SCH (10:21)
[2023-08-30] MEDS: CEFUROXIME AXETIL 500 MG TABLET PO SCH ×2 (10:21→21:30)
[2023-08-30] MEDS: APIXABAN 5 MG TABLET PO SCH ×2 (10:21→21:31)
[2023-08-30] MEDS: ASPIRIN 81 MG CHEWABLE TABLETS PO SCH (10:21)
[2023-08-30] MEDS: TAMSULOSIN HCL 0.4 MG CAP PO SCH (21:31)
[2023-08-30] MEDS: MONTELUKAST NA 10 MG TABLET PO SCH (21:31)
[2023-08-30] MEDS: MELATONIN 5 MG TABLETS PO SCH (21:31)
[2023-08-30] MEDS: QUEtiapine FUMARATE 100 MG TABLET (FP) PO SCH (21:31)
[2023-08-30] MEDS: ATORVASTATIN CA 40 MG TABLET (FP) PO SCH (21:31)
[2023-08-30] MEDS: THIAMINE HCL 100 MG TABLET (FP) PO SCH (21:31)
[2023-08-31] MEDS: diazePAM 5 MG TABLET PO SCH ×2 (06:17→17:39)
[2023-08-31] MEDS: glyBURIDE 5 MG TABLET PO SCH (06:19)
[2023-08-31] MEDS: INSULIN SLIDING SCALE (NOVOLOG) 1 VIAL SQ SCH ×4 (06:42→21:48)
[2023-08-31] MEDS ORDERED: INSULIN SLIDING SCALE (NOVOLOG) 1 VIAL SQ ONE (06:50)
[2023-08-31] MEDS: APIXABAN 5 MG TABLET PO SCH ×2 (09:28→21:47)
[2023-08-31] MEDS: CEFUROXIME AXETIL 500 MG TABLET PO SCH ×2 (09:28→21:47)
[2023-08-31] MEDS: PRENATAL VITAMINS W/ FOLIC ACID TABLET (FP) PO SCH (09:28)
[2023-08-31] MEDS: ASPIRIN 81 MG CHEWABLE TABLETS PO SCH (09:28)
[2023-08-31] MEDS: FOLIC ACID 1 MG TABLET (FP) PO SCH (09:28)
[2023-08-31] MEDS: amLODIPine BESYLATE 10 MG TABLET (FP) PO SCH (09:30)
[2023-08-31] MEDS: COLLAGENASE CLOSTRIDIUM HIST. 30 GRAMS TUBE TP SCH (09:30)
[2023-08-31] MEDS: NICOTINE 14 MG/24 HOURS TOPICAL PATCH TD SCH (09:30)
[2023-08-31] MEDS: ATORVASTATIN CA 40 MG TABLET (FP) PO SCH (21:47)
[2023-08-31] MEDS: THIAMINE HCL 100 MG TABLET (FP) PO SCH (21:47)
[2023-08-31] MEDS: TAMSULOSIN HCL 0.4 MG CAP PO SCH (21:47)
[2023-08-31] MEDS: MELATONIN 5 MG TABLETS PO SCH (21:47)
[2023-08-31] MEDS: MONTELUKAST NA 10 MG TABLET PO SCH (21:47)
[2023-08-31] MEDS: QUEtiapine FUMARATE 100 MG TABLET (FP) PO SCH (21:48)
[2023-09-01] MEDS ORDERED: diazePAM 5 MG TABLET PO ONE (06:00)
[2023-09-01] MEDS: glyBURIDE 5 MG TABLET PO SCH (06:34)
[2023-09-01] MEDS: INSULIN SLIDING SCALE (NOVOLOG) 1 VIAL SQ SCH ×4 (06:34→21:36)
[2023-09-01] MEDS: amLODIPine BESYLATE 10 MG TABLET (FP) PO SCH (09:10)
[2023-09-01] MEDS: FOLIC ACID 1 MG TABLET (FP) PO SCH (09:10)
[2023-09-01] MEDS: ASPIRIN 81 MG CHEWABLE TABLETS PO SCH (09:10)
[2023-09-01] MEDS: CEFUROXIME AXETIL 500 MG TABLET PO SCH (09:10)
[2023-09-01] MEDS: APIXABAN 5 MG TABLET PO SCH ×2 (09:10→21:22)
[2023-09-01] MEDS: PRENATAL VITAMINS W/ FOLIC ACID TABLET (FP) PO SCH (09:11)
[2023-09-01] MEDS: NICOTINE 14 MG/24 HOURS TOPICAL PATCH TD SCH (09:11)
[2023-09-01] MEDS: COLLAGENASE CLOSTRIDIUM HIST. 30 GRAMS TUBE TP SCH (09:11)
[2023-09-01] MEDS: MONTELUKAST NA 10 MG TABLET PO SCH (21:22)
[2023-09-01] MEDS: TAMSULOSIN HCL 0.4 MG CAP PO SCH (21:22)
[2023-09-01] MEDS: ATORVASTATIN CA 40 MG TABLET (FP) PO SCH (21:22)
[2023-09-01] MEDS: THIAMINE HCL 100 MG TABLET (FP) PO SCH (21:22)
[2023-09-01] MEDS: MELATONIN 5 MG TABLETS PO SCH (21:22)
[2023-09-01] MEDS: QUEtiapine FUMARATE 100 MG TABLET (FP) PO SCH (21:22)
[2023-09-02] MEDS: glyBURIDE 5 MG TABLET PO SCH (06:20)
[2023-09-02] MEDS: INSULIN SLIDING SCALE (NOVOLOG) 1 VIAL SQ SCH ×4 (07:17→21:16)
[2023-09-02] MEDS: NICOTINE 14 MG/24 HOURS TOPICAL PATCH TD SCH (09:36)
[2023-09-02] MEDS: ASPIRIN 81 MG CHEWABLE TABLETS PO SCH (09:36)
[2023-09-02] MEDS: FOLIC ACID 1 MG TABLET (FP) PO SCH (09:36)
[2023-09-02] MEDS: APIXABAN 5 MG TABLET PO SCH ×2 (09:36→21:16)
[2023-09-02] MEDS: PRENATAL VITAMINS W/ FOLIC ACID TABLET (FP) PO SCH (09:37)
[2023-09-02] MEDS: COLLAGENASE CLOSTRIDIUM HIST. 30 GRAMS TUBE TP SCH (09:37)
[2023-09-02] MEDS: amLODIPine BESYLATE 10 MG TABLET (FP) PO SCH (09:37)
[2023-09-02] MEDS: ATORVASTATIN CA 40 MG TABLET (FP) PO SCH (21:15)
[2023-09-02] MEDS: QUEtiapine FUMARATE 100 MG TABLET (FP) PO SCH (21:15)
[2023-09-02] MEDS: TAMSULOSIN HCL 0.4 MG CAP PO SCH (21:16)
[2023-09-02] MEDS: THIAMINE HCL 100 MG TABLET (FP) PO SCH (21:16)
[2023-09-02] MEDS: MONTELUKAST NA 10 MG TABLET PO SCH (21:16)
[2023-09-02] MEDS: MELATONIN 5 MG TABLETS PO SCH (21:26)
[2023-09-03] MEDS: glyBURIDE 5 MG TABLET PO SCH (06:00)
[2023-09-03] MEDS: INSULIN SLIDING SCALE (NOVOLOG) 1 VIAL SQ SCH ×4 (07:13→21:53)
[2023-09-03] MEDS: FOLIC ACID 1 MG TABLET (FP) PO SCH (09:44)
[2023-09-03] MEDS: PRENATAL VITAMINS W/ FOLIC ACID TABLET (FP) PO SCH (09:44)
[2023-09-03] MEDS: APIXABAN 5 MG TABLET PO SCH ×2 (09:44→21:45)
[2023-09-03] MEDS: amLODIPine BESYLATE 10 MG TABLET (FP) PO SCH (09:44)
[2023-09-03] MEDS: ASPIRIN 81 MG CHEWABLE TABLETS PO SCH (09:44)
[2023-09-03] MEDS: NICOTINE 14 MG/24 HOURS TOPICAL PATCH TD SCH (09:44)
[2023-09-03] MEDS: COLLAGENASE CLOSTRIDIUM HIST. 30 GRAMS TUBE TP SCH (09:44)
[2023-09-03] MEDS: MELATONIN 5 MG TABLETS PO SCH (21:45)
[2023-09-03] MEDS: QUEtiapine FUMARATE 100 MG TABLET (FP) PO SCH (21:45)
[2023-09-03] MEDS: ATORVASTATIN CA 40 MG TABLET (FP) PO SCH (21:45)
[2023-09-03] MEDS: THIAMINE HCL 100 MG TABLET (FP) PO SCH (21:45)
[2023-09-03] MEDS: TAMSULOSIN HCL 0.4 MG CAP PO SCH (21:45)
[2023-09-03] MEDS: MONTELUKAST NA 10 MG TABLET PO SCH (21:45)
[2023-09-04] MEDS: INSULIN SLIDING SCALE (NOVOLOG) 1 VIAL SQ SCH ×4 (07:04→21:23)
[2023-09-04] MEDS: glyBURIDE 5 MG TABLET PO SCH (07:07)
[2023-09-04] MEDS: FOLIC ACID 1 MG TABLET (FP) PO SCH (10:38)
[2023-09-04] MEDS: PRENATAL VITAMINS W/ FOLIC ACID TABLET (FP) PO SCH (10:38)
[2023-09-04] MEDS: NICOTINE 14 MG/24 HOURS TOPICAL PATCH TD SCH (10:38)
[2023-09-04] MEDS: amLODIPine BESYLATE 10 MG TABLET (FP) PO SCH (10:38)
[2023-09-04] MEDS: APIXABAN 5 MG TABLET PO SCH ×2 (10:38→21:23)
[2023-09-04] MEDS: ASPIRIN 81 MG CHEWABLE TABLETS PO SCH (10:39)
[2023-09-04] MEDS: COLLAGENASE CLOSTRIDIUM HIST. 30 GRAMS TUBE TP SCH (10:43)
[2023-09-04] MEDS: QUEtiapine FUMARATE 100 MG TABLET (FP) PO SCH (21:15)
[2023-09-04] MEDS: MELATONIN 5 MG TABLETS PO SCH (21:15)
[2023-09-04] MEDS: TAMSULOSIN HCL 0.4 MG CAP PO SCH (21:15)
[2023-09-04] MEDS: THIAMINE HCL 100 MG TABLET (FP) PO SCH (21:16)
[2023-09-04] MEDS: MONTELUKAST NA 10 MG TABLET PO SCH (21:16)
[2023-09-04] MEDS: ATORVASTATIN CA 40 MG TABLET (FP) PO SCH (21:23)
[2023-09-05] MEDS: glyBURIDE 5 MG TABLET PO SCH (06:19)
[2023-09-05] MEDS: INSULIN SLIDING SCALE (NOVOLOG) 1 VIAL SQ SCH ×4 (07:08→22:19)
[2023-09-05] MEDS ORDERED: INSULIN SLIDING SCALE (NOVOLOG) 1 VIAL SQ ONE (07:13)
[2023-09-05] MEDS: amLODIPine BESYLATE 10 MG TABLET (FP) PO SCH (10:43)
[2023-09-05] MEDS: FOLIC ACID 1 MG TABLET (FP) PO SCH (10:43)
[2023-09-05] MEDS: ASPIRIN 81 MG CHEWABLE TABLETS PO SCH (10:43)
[2023-09-05] MEDS: APIXABAN 5 MG TABLET PO SCH ×2 (10:44→22:08)
[2023-09-05] MEDS: NICOTINE 14 MG/24 HOURS TOPICAL PATCH TD SCH (10:44)
[2023-09-05] MEDS: COLLAGENASE CLOSTRIDIUM HIST. 30 GRAMS TUBE TP SCH (10:45)
[2023-09-05] MEDS: PRENATAL VITAMINS W/ FOLIC ACID TABLET (FP) PO SCH (10:45)
[2023-09-05] MEDS: THIAMINE HCL 100 MG TABLET (FP) PO SCH (22:08)
[2023-09-05] MEDS: QUEtiapine FUMARATE 100 MG TABLET (FP) PO SCH (22:08)
[2023-09-05] MEDS: ATORVASTATIN CA 40 MG TABLET (FP) PO SCH (22:08)
[2023-09-05] MEDS: MELATONIN 5 MG TABLETS PO SCH (22:08)
[2023-09-05] MEDS: MONTELUKAST NA 10 MG TABLET PO SCH (22:09)
[2023-09-06] MEDS: glyBURIDE 5 MG TABLET PO SCH (06:15)
[2023-09-06] MEDS: INSULIN SLIDING SCALE (NOVOLOG) 1 VIAL SQ SCH ×2 (07:03→11:27)
[2023-09-06] MEDS: FOLIC ACID 1 MG TABLET (FP) PO SCH (09:18)
[2023-09-06] MEDS: APIXABAN 5 MG TABLET PO SCH (09:18)
[2023-09-06] MEDS: COLLAGENASE CLOSTRIDIUM HIST. 30 GRAMS TUBE TP SCH (09:18)
[2023-09-06] MEDS: NICOTINE 14 MG/24 HOURS TOPICAL PATCH TD SCH (09:18)
[2023-09-06] MEDS: ASPIRIN 81 MG CHEWABLE TABLETS PO SCH (09:18)
[2023-09-06] MEDS: PRENATAL VITAMINS W/ FOLIC ACID TABLET (FP) PO SCH (09:18)
[2023-09-06] MEDS: amLODIPine BESYLATE 10 MG TABLET (FP) PO SCH (09:18)
[2023-09-06 13:00] VITALS: BP 113/68; PULSE 69; RESP 18; TEMP 97.3
== END 2023-09-06 13:30 | disposition home or self-care (01) | DRG 773 ==
LOC: YASAS 17:34 → Y3N 21:27
PROVIDERS: ADMIT Allergy & Immunology; ATTEND Surgery
PROC: HZ2ZZZZ Detoxification Services for Substance Abuse Treatment (ICD-10-PCS; principal; 2023-08-27)
DX: F10.230 Alcohol dependence with withdrawal, uncomplicated (principal); F11.20 Opioid dependence, uncomplicated; F14.20 Cocaine dependence, uncomplicated; F17.210 Nicotine dependence, cigarettes, uncomplicated; F19.282 Other psychoactive substance dependence with psychoactive substance-induced sleep disorder; F19.24 Other psychoactive substance dependence with psychoactive substance-induced mood disorder; U07.1 COVID-19; I10 Essential (primary) hypertension; E11.9 Type 2 diabetes mellitus without complications; Z79.4 Long term (current) use of insulin; K21.9 Gastro-esophageal reflux disease without esophagitis; S81.801A Unspecified open wound, right lower leg, initial encounter; L03.115 Cellulitis of right lower limb; B96.89 Other specified bacterial agents as the cause of diseases classified elsewhere; X58.XXXA Exposure to other specified factors, initial encounter; Y93.9 Activity, unspecified; Y92.9 Unspecified place or not applicable; Z86.718 Personal history of other venous thrombosis and embolism; Z79.01 Long term (current) use of anticoagulants
CPT/HCPCS: 36415; 80053; 82962; 85027; 87070; 87186; 87205; 87635; 87811

== ENCOUNTER 2023-12-09 14:18 | Inpatient (IN) | payer OTHER ==
[2023-12-09 15:12] VITALS: BMI 25.1
[2023-12-09] MEDS ORDERED: DOCUSATE NA 100 MG/10 ML UNIT-DOSE CUPS PO PRN (15:49)
[2023-12-09] MEDS ORDERED: ONDANSETRON *ODT* 4 MG TABLET SL PRN (15:52)
[2023-12-09] MEDS ORDERED: NALOXONE HCL (KLOXXADO) 8 MG SPRAY NS PRN (15:52)
[2023-12-09] MEDS ORDERED: BENZOCAINE/MENTHOL (CHLORASEPTIC ) LOZENGE MM PRN (15:52)
[2023-12-09] MEDS ORDERED: DICYCLOMINE HCL 10 MG CAPSULE PO PRN (15:52)
[2023-12-09] MEDS ORDERED: NICOTINE POLACRILEX 2 MG LOZENGE BC PRN (15:52)
[2023-12-09] MEDS ORDERED: NALOXONE HCL 0.4 MG/ML VIAL IM PRN (15:52)
[2023-12-09] MEDS ORDERED: guaiFENesin 600 MG TABLET.ER (FP) PO PRN (15:52)
[2023-12-09] MEDS ORDERED: MAG HYDROX/AL HYDROX/SIMETH 30 ML UNIT-DOSE CUP PO PRN (15:52)
[2023-12-09] MEDS ORDERED: hydrOXYzine PAMOATE 25 MG CAPSULE (FP) PO PRN (15:52)
[2023-12-09] MEDS ORDERED: BENZONATATE 200 MG CAPSULE PO PRN (15:52)
[2023-12-09] MEDS ORDERED: P-EPHED 60MG/TRIPROLIDI 2.5MG TABLET PO PRN (15:52)
[2023-12-09] MEDS ORDERED: LOPERAMIDE HCL 2 MG CAPSULE PO PRN (15:52)
[2023-12-09] MEDS ORDERED: MAGNESIUM HYDROX 2400MG/30ML ORAL SUSPENSION 30 ML CUP PO PRN (15:52)
[2023-12-09] MEDS ORDERED: POLYETHYLENE GLYCOL (HEALTHYLAX) 3350 17 GM PACKET PO PRN (15:52)
[2023-12-09] MEDS: INSULIN ASPART SLIDING SCALE (NOVOLOG) 1 VIAL SQ SCH ×2 (16:44→21:57)
[2023-12-09] MEDS ORDERED: INSULIN (NOVOLOG) ASPART 100 UNITS/ML 10ML VIAL ONE (16:49)
[2023-12-09] MEDS: ACETAMINOPHEN 325 MG TABLET (FP) PO PRN (17:25)
[2023-12-09] MEDS: METHOCARBAMOL 500 MG TABLET PO PRN (17:25)
[2023-12-09] MEDS: TAMSULOSIN HCL 0.4 MG CAP PO SCH (21:57)
[2023-12-09] MEDS: APIXABAN 5 MG TABLET PO SCH (21:57)
[2023-12-09] MEDS: MONTELUKAST NA 10 MG TABLET PO SCH (21:57)
[2023-12-09] MEDS: THIAMINE HCL 100 MG TABLET (FP) PO SCH (21:57)
[2023-12-09] MEDS: ATORVASTATIN CA 40 MG TABLET (FP) PO SCH (21:57)
[2023-12-09] MEDS: MELATONIN 5 MG TABLETS PO SCH (21:58)
[2023-12-10] MEDS: METHOCARBAMOL 500 MG TABLET PO PRN ×2 (05:49→22:05)
[2023-12-10] MEDS: INSULIN ASPART SLIDING SCALE (NOVOLOG) 1 VIAL SQ SCH ×4 (06:12→22:08)
[2023-12-10] MEDS ORDERED: methaDONE HCL 10 MG TABLET PO SCH (09:45)
[2023-12-10] MEDS ORDERED: COLLAGENASE CLOSTRIDIUM HIST. 30 GRAMS TUBE TP SCH (10:00)
[2023-12-10] MEDS ORDERED: PRENATAL VITAMINS W/ FOLIC ACID TABLET (FP) PO SCH (10:00)
[2023-12-10] MEDS: ASPIRIN 81 MG CHEWABLE TABLETS PO SCH (10:14)
[2023-12-10] MEDS: APIXABAN 5 MG TABLET PO SCH ×2 (10:14→22:03)
[2023-12-10] MEDS: PRENATAL VITAMINS W/ FOLIC ACID TABLET (FP) PO SCH (10:14)
[2023-12-10] MEDS: FOLIC ACID 1 MG TABLET (FP) PO SCH (10:14)
[2023-12-10] MEDS: ALBUTEROL SO4 HFA INHALER IH PRN ×2 (10:15→16:32)
[2023-12-10] MEDS: diazePAM 5 MG TABLET PO SCH ×3 (10:18→22:04)
[2023-12-10 10:47] LABS: HEMATOCRIT 34.5 % (35.4-49); HEMOGLOBIN 10.9 GM/dL (11.7-16.9); MCH 27.7 pg (25.7-33.7); MCHC 31.8 g/dl (32.0-35.9); MEAN CELL VOLUME 87.3 fl (80-96); MEAN PLT VOLUME 9.7 fl (7.5-11.1); PLATELET COUNT 476 10^3/uL (134-434); RBC 3.95 M/mm3 (4.00-5.60); RDW 19.3 % (11.9-15.9); WHITE BLOOD COUNT 12.6 K/mm3 (4.0-10.0)
[2023-12-10 10:57] LABS: CHLORIDE 110 mmol/L (98-107); POTASSIUM 4.3 mmol/L (3.5-5.1); SODIUM 141 mmol/L (136-145)
[2023-12-10 11:16] LABS: CALCIUM 9.3 mg/dL (8.5-10.1)
[2023-12-10 11:17] LABS: ANION GAP 8 mmol/L (4-13); BLOOD UREA NITROGEN 16.8 mg/dL (7-18); CO2 23 mmol/L (21-32); GLUCOSE,RANDOM 156 mg/dL (74-106)
[2023-12-10 11:19] LABS: CREATININE 0.7 mg/dL (0.55-1.3); SGPT/ALT 37 U/L (13-61)
[2023-12-10 11:20] LABS: SGOT/AST 26 U/L (15-37); TOT PROT 6.9 g/dl (6.4-8.2)
[2023-12-10 11:21] LABS: ALK PHOS 164 U/L (45-117); BILIRUBIN,TOTAL < 0.1 mg/dL (0.2-1)
[2023-12-10] MEDS: SULFAMETHOXAZOLE/TRIMETHOPRIM 800MG/160MG D.S. TABLET PO SCH ×2 (13:45→22:03)
[2023-12-10] MEDS: diazePAM 5 MG TABLET PO PRN (14:42)
[2023-12-10] MEDS: FLUTICASONE/SALMETEROL (WIXELA) 100 MCG/50 MCG DISKUS IH SCH ×2 (14:54→22:02)
[2023-12-10] MEDS: SILVER SULFADIAZINE 1% TOP CREAM 50 GM JAR TP SCH (14:55)
[2023-12-10] MEDS: ACETAMINOPHEN 325 MG TABLET (FP) PO PRN (17:36)
[2023-12-10] MEDS: THIAMINE HCL 100 MG TABLET (FP) PO SCH (22:03)
[2023-12-10] MEDS: MONTELUKAST NA 10 MG TABLET PO SCH (22:03)
[2023-12-10] MEDS: TAMSULOSIN HCL 0.4 MG CAP PO SCH (22:03)
[2023-12-10] MEDS: ATORVASTATIN CA 40 MG TABLET (FP) PO SCH (22:03)
[2023-12-10] MEDS: QUEtiapine FUMARATE 100 MG TABLET (FP) PO SCH (22:03)
[2023-12-10] MEDS: MELATONIN 5 MG TABLETS PO SCH (22:04)
[2023-12-11] MEDS: diazePAM 5 MG TABLET PO SCH ×4 (05:20→22:08)
[2023-12-11] MEDS: INSULIN ASPART SLIDING SCALE (NOVOLOG) 1 VIAL SQ SCH ×4 (06:35→21:53)
[2023-12-11] MEDS: FLUTICASONE/SALMETEROL (WIXELA) 100 MCG/50 MCG DISKUS IH SCH ×2 (10:32→21:46)
[2023-12-11] MEDS: ASPIRIN 81 MG CHEWABLE TABLETS PO SCH (10:33)
[2023-12-11] MEDS: FOLIC ACID 1 MG TABLET (FP) PO SCH (10:33)
[2023-12-11] MEDS: APIXABAN 5 MG TABLET PO SCH ×2 (10:33→21:47)
[2023-12-11] MEDS: SULFAMETHOXAZOLE/TRIMETHOPRIM 800MG/160MG D.S. TABLET PO SCH ×2 (10:33→21:49)
[2023-12-11] MEDS: PRENATAL VITAMINS W/ FOLIC ACID TABLET (FP) PO SCH (10:33)
[2023-12-11] MEDS: SILVER SULFADIAZINE 1% TOP CREAM 50 GM JAR TP SCH (10:35)
[2023-12-11] MEDS: ALBUTEROL SO4 HFA INHALER IH PRN (11:46)
[2023-12-11] MEDS ORDERED: INSULIN (LEVEMIR) 100 UNITS/ML UNITS SQ SCH (14:00)
[2023-12-11] MEDS: ENALAPRIL MALEATE 10 MG TABLET PO SCH (14:37)
[2023-12-11] MEDS: glyBURIDE 5 MG TABLET PO SCH (14:37)
[2023-12-11] MEDS: diazePAM 5 MG TABLET PO PRN (15:30)
[2023-12-11] MEDS: METHOCARBAMOL 500 MG TABLET PO PRN (21:48)
[2023-12-11] MEDS: TAMSULOSIN HCL 0.4 MG CAP PO SCH (21:48)
[2023-12-11] MEDS: QUEtiapine FUMARATE 100 MG TABLET (FP) PO SCH (21:48)
[2023-12-11] MEDS: THIAMINE HCL 100 MG TABLET (FP) PO SCH (21:48)
[2023-12-11] MEDS: MELATONIN 5 MG TABLETS PO SCH (21:48)
[2023-12-11] MEDS: MONTELUKAST NA 10 MG TABLET PO SCH (21:48)
[2023-12-11] MEDS: ATORVASTATIN CA 40 MG TABLET (FP) PO SCH (21:49)
[2023-12-11] MEDS: INSULIN (LEVEMIR) 100 UNITS/ML UNITS SQ SCH (21:53)
[2023-12-12] MEDS: diazePAM 5 MG TABLET PO SCH ×3 (05:28→22:03)
[2023-12-12] MEDS: METHOCARBAMOL 500 MG TABLET PO PRN ×2 (05:32→22:01)
[2023-12-12] MEDS: INSULIN ASPART SLIDING SCALE (NOVOLOG) 1 VIAL SQ SCH ×4 (06:09→21:58)
[2023-12-12] MEDS: APIXABAN 5 MG TABLET PO SCH ×2 (10:12→22:02)
[2023-12-12] MEDS: ASPIRIN 81 MG CHEWABLE TABLETS PO SCH (10:12)
[2023-12-12] MEDS: glyBURIDE 5 MG TABLET PO SCH (10:12)
[2023-12-12] MEDS: ENALAPRIL MALEATE 10 MG TABLET PO SCH (10:12)
[2023-12-12] MEDS: FOLIC ACID 1 MG TABLET (FP) PO SCH (10:12)
[2023-12-12] MEDS: SULFAMETHOXAZOLE/TRIMETHOPRIM 800MG/160MG D.S. TABLET PO SCH ×2 (10:12→22:01)
[2023-12-12] MEDS: FLUTICASONE/SALMETEROL (WIXELA) 100 MCG/50 MCG DISKUS IH SCH ×2 (10:12→21:58)
[2023-12-12] MEDS: PRENATAL VITAMINS W/ FOLIC ACID TABLET (FP) PO SCH (10:12)
[2023-12-12] MEDS: SILVER SULFADIAZINE 1% TOP CREAM 50 GM JAR TP SCH (10:13)
[2023-12-12] MEDS: diazePAM 5 MG TABLET PO PRN (10:14)
[2023-12-12] MEDS: ALBUTEROL SO4 HFA INHALER IH PRN (14:44)
[2023-12-12] MEDS: INSULIN (LEVEMIR) 100 UNITS/ML UNITS SQ SCH (22:00)
[2023-12-12] MEDS: MONTELUKAST NA 10 MG TABLET PO SCH (22:01)
[2023-12-12] MEDS: MELATONIN 5 MG TABLETS PO SCH (22:01)
[2023-12-12] MEDS: TAMSULOSIN HCL 0.4 MG CAP PO SCH (22:02)
[2023-12-12] MEDS: QUEtiapine FUMARATE 100 MG TABLET (FP) PO SCH (22:02)
[2023-12-12] MEDS: THIAMINE HCL 100 MG TABLET (FP) PO SCH (22:02)
[2023-12-12] MEDS: ATORVASTATIN CA 40 MG TABLET (FP) PO SCH (22:02)
[2023-12-13] MEDS: diazePAM 5 MG TABLET PO SCH ×2 (05:26→17:34)
[2023-12-13] MEDS: INSULIN ASPART SLIDING SCALE (NOVOLOG) 1 VIAL SQ SCH ×4 (06:18→22:10)
[2023-12-13] MEDS: SULFAMETHOXAZOLE/TRIMETHOPRIM 800MG/160MG D.S. TABLET PO SCH ×2 (10:03→22:13)
[2023-12-13] MEDS: PRENATAL VITAMINS W/ FOLIC ACID TABLET (FP) PO SCH (10:03)
[2023-12-13] MEDS: APIXABAN 5 MG TABLET PO SCH ×2 (10:03→22:13)
[2023-12-13] MEDS: FOLIC ACID 1 MG TABLET (FP) PO SCH (10:04)
[2023-12-13] MEDS: SILVER SULFADIAZINE 1% TOP CREAM 50 GM JAR TP SCH (10:04)
[2023-12-13] MEDS: ASPIRIN 81 MG CHEWABLE TABLETS PO SCH (10:04)
[2023-12-13] MEDS: ENALAPRIL MALEATE 10 MG TABLET PO SCH (10:04)
[2023-12-13] MEDS: FLUTICASONE/SALMETEROL (WIXELA) 100 MCG/50 MCG DISKUS IH SCH ×2 (10:04→22:10)
[2023-12-13] MEDS: glyBURIDE 5 MG TABLET PO SCH (10:04)
[2023-12-13] MEDS: ALBUTEROL SO4 HFA INHALER IH PRN ×2 (11:33→14:59)
[2023-12-13] MEDS: INSULIN (LEVEMIR) 100 UNITS/ML UNITS SQ SCH (22:11)
[2023-12-13] MEDS: MELATONIN 5 MG TABLETS PO SCH (22:12)
[2023-12-13] MEDS: QUEtiapine FUMARATE 100 MG TABLET (FP) PO SCH (22:12)
[2023-12-13] MEDS: THIAMINE HCL 100 MG TABLET (FP) PO SCH (22:13)
[2023-12-13] MEDS: METHOCARBAMOL 500 MG TABLET PO PRN (22:13)
[2023-12-13] MEDS: MONTELUKAST NA 10 MG TABLET PO SCH (22:13)
[2023-12-13] MEDS: TAMSULOSIN HCL 0.4 MG CAP PO SCH (22:13)
[2023-12-13] MEDS: ATORVASTATIN CA 40 MG TABLET (FP) PO SCH (22:13)
[2023-12-14] MEDS ORDERED: diazePAM 5 MG TABLET PO ONE (06:00)
[2023-12-14] MEDS: INSULIN ASPART SLIDING SCALE (NOVOLOG) 1 VIAL SQ SCH ×2 (07:35→11:44)
[2023-12-14] MEDS ORDERED: INSULIN ASPART SLIDING SCALE (NOVOLOG) 1 VIAL SQ ONE (07:52)
[2023-12-14 09:55] VITALS: BP 122/76; PULSE 84; RESP 16; TEMP 98
[2023-12-14] MEDS: FLUTICASONE/SALMETEROL (WIXELA) 100 MCG/50 MCG DISKUS IH SCH (10:16)
[2023-12-14] MEDS: ASPIRIN 81 MG CHEWABLE TABLETS PO SCH (10:17)
[2023-12-14] MEDS: PRENATAL VITAMINS W/ FOLIC ACID TABLET (FP) PO SCH (10:17)
[2023-12-14] MEDS: SULFAMETHOXAZOLE/TRIMETHOPRIM 800MG/160MG D.S. TABLET PO SCH (10:17)
[2023-12-14] MEDS: FOLIC ACID 1 MG TABLET (FP) PO SCH (10:17)
[2023-12-14] MEDS: ENALAPRIL MALEATE 10 MG TABLET PO SCH (10:17)
[2023-12-14] MEDS: APIXABAN 5 MG TABLET PO SCH (10:17)
[2023-12-14] MEDS: glyBURIDE 5 MG TABLET PO SCH (10:18)
[2023-12-14] MEDS: SILVER SULFADIAZINE 1% TOP CREAM 50 GM JAR TP SCH (10:28)
== END 2023-12-14 12:58 | disposition other institution (70) | DRG 773 ==
LOC: YASAS 14:18 → Y3N 16:50
PROVIDERS: ADMIT Allergy & Immunology; ATTEND Allergy & Immunology
PROC: HZ2ZZZZ Detoxification Services for Substance Abuse Treatment (ICD-10-PCS; principal; 2023-12-09)
DX: F10.230 Alcohol dependence with withdrawal, uncomplicated (principal); F11.20 Opioid dependence, uncomplicated; F14.20 Cocaine dependence, uncomplicated; F12.20 Cannabis dependence, uncomplicated; F17.210 Nicotine dependence, cigarettes, uncomplicated; F31.9 Bipolar disorder, unspecified; F19.24 Other psychoactive substance dependence with psychoactive substance-induced mood disorder; G47.00 Insomnia, unspecified; I10 Essential (primary) hypertension; E78.5 Hyperlipidemia, unspecified; E11.9 Type 2 diabetes mellitus without complications; Z79.4 Long term (current) use of insulin; Z99.89 Dependence on other enabling machines and devices; Z88.8 Allergy status to other drugs, medicaments and biological substances; Z91.041 Radiographic dye allergy status; Z86.718 Personal history of other venous thrombosis and embolism; Z79.01 Long term (current) use of anticoagulants
CPT/HCPCS: 36415; 80053; 80307; 82962; 85027; 86780; 87635

== ENCOUNTER 2023-12-14 13:20 | Inpatient (IN) | payer OTHER ==
[2023-12-14] MEDS ORDERED: NALOXONE HCL 0.4 MG/ML VIAL IVPUSH PRN (15:48)
[2023-12-14] MEDS ORDERED: MAGNESIUM HYDROX 2400MG/30ML ORAL SUSPENSION 30 ML CUP PO PRN (15:48)
[2023-12-14] MEDS ORDERED: NALOXONE HCL (KLOXXADO) 8 MG SPRAY NS PRN (15:48)
[2023-12-14] MEDS: NICOTINE 14 MG/24 HOURS TOPICAL PATCH TD SCH (15:58)
[2023-12-14] MEDS: ENALAPRIL MALEATE 10 MG TABLET PO SCH (16:03)
[2023-12-14] MEDS: PRENATAL VITAMINS W/ FOLIC ACID TABLET (FP) PO SCH (16:44)
[2023-12-14] MEDS: FLUTICASONE/SALMETEROL (WIXELA) 100 MCG/50 MCG DISKUS IH SCH (21:45)
[2023-12-14] MEDS: QUEtiapine FUMARATE 100 MG TABLET (FP) PO SCH (21:45)
[2023-12-14] MEDS: THIAMINE HCL 100 MG TABLET (FP) PO SCH (21:46)
[2023-12-14] MEDS: guaiFENesin 600 MG TABLET.ER (FP) PO PRN (21:46)
[2023-12-14] MEDS: APIXABAN 5 MG TABLET PO SCH (21:46)
[2023-12-14] MEDS: MELATONIN 5 MG TABLETS PO SCH (21:46)
[2023-12-14] MEDS: ATORVASTATIN CA 40 MG TABLET (FP) PO SCH (21:47)
[2023-12-14] MEDS: INSULIN (LEVEMIR) 100 UNITS/ML UNITS SQ SCH (21:47)
[2023-12-14] MEDS ORDERED: FLUTICASONE/SALMETEROL (WIXELA) 100 MCG/50 MCG DISKUS IH SCH (22:00)
[2023-12-15] MEDS ORDERED: methaDONE HCL 10 MG TABLET PO SCH (06:00)
[2023-12-15] MEDS ORDERED: PATIENT'S OWN MEDICATION (NON-FORMULARY) (Thiamine Hcl [B-1] 100 MG Tablet) PO SCH (10:00)
[2023-12-15] MEDS: ASPIRIN 81 MG CHEWABLE TABLETS PO SCH (10:23)
[2023-12-15] MEDS: ENALAPRIL MALEATE 10 MG TABLET PO SCH (10:23)
[2023-12-15] MEDS: ALBUTEROL SO4 HFA INHALER IH PRN (13:34)
[2023-12-15] MEDS: DOCUSATE SODIUM 100 MG CAPSULE (FP) PO SCH (14:55)
[2023-12-15] MEDS ORDERED: LACTULOSE 20 GM/30 ML UDC (FOR ORAL USE ONLY) PO PRN (14:59)
[2023-12-15] MEDS ORDERED: INSULIN (NOVOLOG) ASPART 100 UNITS/ML 10ML VIAL ONE ×2 (17:05→21:48)
[2023-12-15] MEDS: INSULIN ASPART SLIDING SCALE (NOVOLOG) 1 VIAL SQ SCH (17:09)
[2023-12-15] MEDS: ACETAMINOPHEN 325 MG TABLET (FP) PO PRN (19:35)
[2023-12-15] MEDS: TAMSULOSIN HCL 0.4 MG CAP PO SCH (21:43)
[2023-12-15] MEDS ORDERED: QUEtiapine FUMARATE 100 MG TABLET (FP) PO SCH (22:00)
[2023-12-16] MEDS ORDERED: INSULIN (NOVOLOG) ASPART 100 UNITS/ML 10ML VIAL ONE ×3 (06:57→16:43)
[2023-12-16 10:52] LABS: PROTHROMBIN TIME (PATIENT) 11.6 SEC (9.7-13.0)
[2023-12-16] MEDS: INSULIN ASPART SLIDING SCALE (NOVOLOG) 1 VIAL SQ SCH (12:06)
[2023-12-16] MEDS: LACTULOSE 20 GM/30 ML UDC (FOR ORAL USE ONLY) PO SCH (14:50)
[2023-12-16] MEDS: MONTELUKAST NA 10 MG TABLET PO SCH (21:52)
[2023-12-17] MEDS ORDERED: INSULIN (NOVOLOG) ASPART 100 UNITS/ML 10ML VIAL ONE ×3 (06:25→16:54)
[2023-12-17] MEDS: LIDOCAINE 4% PATCH TP SCH (16:08)
[2023-12-17] MEDS: QUEtiapine FUMARATE 50 MG TABLET PO SCH (21:33)
[2023-12-17] MEDS: LIDOCAINE PATCH REMOVAL MC SCH (21:34)
[2023-12-18] MEDS ORDERED: INSULIN (NOVOLOG) ASPART 100 UNITS/ML 10ML VIAL ONE ×2 (08:03→10:12)
[2023-12-19] MEDS ORDERED: INSULIN (NOVOLOG) ASPART 100 UNITS/ML 10ML VIAL ONE (06:20)
[2023-12-19] MEDS: MAG HYDROX/AL HYDROX/SIMETH 30 ML UNIT-DOSE CUP PO PRN (18:57)
[2023-12-20] MEDS ORDERED: INSULIN (NOVOLOG) ASPART 100 UNITS/ML 10ML VIAL ONE ×2 (06:12→12:08)
[2023-12-20] MEDS: BACLOFEN 10 MG TABLET (FP) PO PRN (13:16)
[2023-12-21] MEDS ORDERED: INSULIN (NOVOLOG) ASPART 100 UNITS/ML 10ML VIAL ONE (11:50)
[2023-12-21 19:24] LABS: HIV INTERPRETATION NEGATIVE (NEGATIVE)
[2023-12-22] MEDS ORDERED: INSULIN (NOVOLOG) ASPART 100 UNITS/ML 10ML VIAL ONE ×3 (03:51→22:45)
[2023-12-22] MEDS: ACAMPROSATE CALCIUM 333 MG TABLET.DR PO SCH (14:43)
[2023-12-22] MEDS: METHOCARBAMOL 500 MG TABLET PO SCH (14:43)
[2023-12-22] MEDS: BACITRACIN 0.9 GM PACKET TP SCH (14:44)
[2023-12-22] MEDS: ACETAMINOPHEN 325 MG TABLET (FP) PO PRN (18:58)
[2023-12-22] MEDS: RIFAXIMIN 550 MG TABLET PO SCH (22:20)
[2023-12-23] MEDS ORDERED: INSULIN (NOVOLOG) ASPART 100 UNITS/ML 10ML VIAL ONE ×2 (07:13→11:37)
[2023-12-23] MEDS: AMOX TR/POT CLAV 500MG/125MG TABLETS (FP) PO SCH (18:03)
[2023-12-23] MEDS: ACETAMINOPHEN 325 MG TABLET (FP) PO PRN (19:09)
[2023-12-23] MEDS: QUEtiapine FUMARATE 25 MG TABLET PO SCH (21:05)
[2023-12-24] MEDS ORDERED: INSULIN (NOVOLOG) ASPART 100 UNITS/ML 10ML VIAL ONE (06:00)
[2023-12-24] MEDS: QUEtiapine FUMARATE 25 MG TABLET PO SCH (09:30)
[2023-12-24] MEDS: FLU VACCINE (FLULAVAL) PF 60 MCG/0.5 ML SYRINGE 2023-2024 IM ONE (13:05)
[2023-12-25] MEDS: LOPERAMIDE HCL 2 MG CAPSULE PO ONE (02:55)
[2023-12-25] MEDS ORDERED: INSULIN (NOVOLOG) ASPART 100 UNITS/ML 10ML VIAL ONE ×3 (04:02→16:45)
[2023-12-25] MEDS: methaDONE 80 MG, methaDONE 10 MG PO SCH (05:57)
[2023-12-25] MEDS ORDERED: methaDONE HCL 40 MG DISPERSABLE TABLET PO SCH (06:00)
[2023-12-25] MEDS: METHYL SALICYLATE/MENTHOL OINT 30 GM TUBE TP PRN (09:43)
[2023-12-26] MEDS ORDERED: INSULIN (NOVOLOG) ASPART 100 UNITS/ML 10ML VIAL ONE ×2 (07:10→16:33)
[2023-12-27] MEDS ORDERED: INSULIN (NOVOLOG) ASPART 100 UNITS/ML 10ML VIAL ONE (06:40)
[2023-12-27] MEDS: methaDONE 80 MG, methaDONE 10 MG PO ONE (17:41)
[2023-12-27] MEDS ORDERED: methaDONE HCL 10 MG TABLET PO ONE ×2 (18:00)
[2023-12-28] MEDS ORDERED: methaDONE HCL 10 MG TABLET PO SCH (06:00)
[2023-12-28] MEDS ORDERED: INSULIN (NOVOLOG) ASPART 100 UNITS/ML 10ML VIAL ONE (16:22)
[2023-12-29] MEDS ORDERED: INSULIN (NOVOLOG) ASPART 100 UNITS/ML 10ML VIAL ONE ×3 (06:22→16:41)
[2023-12-30] MEDS ORDERED: INSULIN (NOVOLOG) ASPART 100 UNITS/ML 10ML VIAL ONE ×2 (07:07→11:57)
[2023-12-31] MEDS ORDERED: INSULIN (NOVOLOG) ASPART 100 UNITS/ML 10ML VIAL ONE ×3 (07:37→16:36)
[2024-01-01] MEDS ORDERED: INSULIN (NOVOLOG) ASPART 100 UNITS/ML 10ML VIAL ONE ×2 (05:56→12:11)
[2024-01-01] MEDS: busPIRone HCL 10 MG TABLET (FP) PO SCH (10:23)
[2024-01-01] MEDS: hydrOXYzine PAMOATE 50 MG CAPSULE (FP) PO PRN (10:25)
[2024-01-01] MEDS: QUEtiapine FUMARATE 25 MG TABLET PO SCH (21:12)
[2024-01-01] MEDS: MELATONIN 5 MG TABLETS PO SCH (21:13)
[2024-01-02] MEDS ORDERED: INSULIN (NOVOLOG) ASPART 100 UNITS/ML 10ML VIAL ONE ×2 (07:51→11:08)
[2024-01-03] MEDS ORDERED: INSULIN (NOVOLOG) ASPART 100 UNITS/ML 10ML VIAL ONE ×2 (06:13→16:35)
[2024-01-03] MEDS: AMOX TR/POT CLAV 875MG/125MG TABLETS (FP) PO SCH (07:12)
[2024-01-03] MEDS: DOXYCYCLINE HYCLATE 100 MG TABLET PO SCH (09:22)
[2024-01-04] MEDS ORDERED: INSULIN (NOVOLOG) ASPART 100 UNITS/ML 10ML VIAL ONE ×2 (05:59→11:54)
[2024-01-05] MEDS ORDERED: INSULIN (NOVOLOG) ASPART 100 UNITS/ML 10ML VIAL ONE ×2 (05:55→11:56)
[2024-01-06] MEDS ORDERED: INSULIN (NOVOLOG) ASPART 100 UNITS/ML 10ML VIAL ONE ×5 (05:59→20:53)
[2024-01-07] MEDS ORDERED: INSULIN (NOVOLOG) ASPART 100 UNITS/ML 10ML VIAL ONE (06:03)
[2024-01-07] MEDS ORDERED: INSULIN (NOVOLOG) ASPART 100 UNITS/ML 10ML VIAL SQ SCH (16:30)
[2024-01-07] MEDS: INSULIN (NOVOLOG) ASPART 100 UNITS/ML 10ML VIAL SQ SCH (17:34)
[2024-01-07] MEDS: INSULIN (LEVEMIR) 100 UNITS/ML UNITS SQ SCH (21:07)
[2024-01-08] MEDS: BENZOCAINE 28 GM HEMORRHOIDAL OINTMENT RC PRN (09:45)
[2024-01-08 12:02] LABS: ALBUMIN 3.3 g/dl (3.4-5.0); BLOOD UREA NITROGEN 34.1 mg/dL (7-18); CALCIUM 9.3 mg/dL (8.5-10.1)
[2024-01-08 12:06] LABS: BILIRUBIN,TOTAL 0.5 mg/dL (0.2-1); TOT PROT 7.4 g/dl (6.4-8.2)
[2024-01-08 12:09] LABS: EOS % 6.1 % (0-4.5); HEMATOCRIT 36.6 % (35.4-49); HEMOGLOBIN 12.1 GM/dL (11.7-16.9); LYMPH % 44.1 % (8-40); MCH 28.7 pg (25.7-33.7); MCHC 33.1 g/dl (32.0-35.9); MEAN CELL VOLUME 86.8 fl (80-96); MEAN PLT VOLUME 8.4 fl (7.5-11.1); MONO % 9.2 % (3.8-10.2); NEUT % 39.6 % (42.8-82.8); PLATELET COUNT 321 10^3/uL (134-434); RBC 4.22 M/mm3 (4.00-5.60); RDW 17.5 % (11.9-15.9); WHITE BLOOD COUNT 12.9 K/mm3 (4.0-10.0)
[2024-01-08] MEDS ORDERED: INSULIN (NOVOLOG) ASPART 100 UNITS/ML 10ML VIAL ONE (16:59)
[2024-01-09] MEDS ORDERED: INSULIN (NOVOLOG) ASPART 100 UNITS/ML 10ML VIAL ONE ×3 (03:16→22:22)
[2024-01-09] MEDS: INSULIN (LEVEMIR) 100 UNITS/ML UNITS SQ SCH (10:03)
[2024-01-09] MEDS: LACTULOSE 20 GM/30 ML UDC (FOR ORAL USE ONLY) PO SCH (14:00)
[2024-01-10] MEDS ORDERED: INSULIN (NOVOLOG) ASPART 100 UNITS/ML 10ML VIAL ONE ×2 (05:49→11:52)
[2024-01-11 07:08] VITALS: RESP 18
[2024-01-11] MEDS ORDERED: INSULIN (NOVOLOG) ASPART 100 UNITS/ML 10ML VIAL ONE (11:48)
[2024-01-12 06:47] VITALS: TEMP 97.9
[2024-01-12 09:10] VITALS: BP 157/84; PULSE 82
== END 2024-01-12 09:30 | disposition other institution (70) | DRG 772 ==
LOC: YASAS 13:20 → Y5N 13:22
PROVIDERS: ADMIT Allergy & Immunology; ATTEND Psychiatry & Neurology Pain Medicine
PROC: HZ42ZZZ Group Counseling for Substance Abuse Treatment, Cognitive-Behavioral (ICD-10-PCS; principal; 2023-12-14)
DX: F10.20 Alcohol dependence, uncomplicated (principal); F11.20 Opioid dependence, uncomplicated; F14.20 Cocaine dependence, uncomplicated; F12.20 Cannabis dependence, uncomplicated; F17.210 Nicotine dependence, cigarettes, uncomplicated; F31.9 Bipolar disorder, unspecified; F19.282 Other psychoactive substance dependence with psychoactive substance-induced sleep disorder; F19.24 Other psychoactive substance dependence with psychoactive substance-induced mood disorder; F41.9 Anxiety disorder, unspecified; E72.20 Disorder of urea cycle metabolism, unspecified; I10 Essential (primary) hypertension; J43.0 Unilateral pulmonary emphysema [MacLeod's syndrome]; E11.65 Type 2 diabetes mellitus with hyperglycemia; Z79.4 Long term (current) use of insulin; L08.89 Other specified local infections of the skin and subcutaneous tissue; L08.9 Local infection of the skin and subcutaneous tissue, unspecified; S61.253D Open bite of left middle finger without damage to nail, subsequent encounter; W50.3XXD Accidental bite by another person, subsequent encounter; M54.50 Low back pain, unspecified; G89.29 Other chronic pain; Z20.822 Contact with and (suspected) exposure to COVID-19; Z86.718 Personal history of other venous thrombosis and embolism; Z79.01 Long term (current) use of anticoagulants; Z91.041 Radiographic dye allergy status; Z88.8 Allergy status to other drugs, medicaments and biological substances; Z99.89 Dependence on other enabling machines and devices
CPT/HCPCS: 36415; 73130-TC-LT-FY; 80053; 82140; 82652; 82962; 83036; 83735; 85025; 85610; 86803; 87340; 87389; 87635; 90686; 93005; 93010; J0475

== ENCOUNTER 2024-01-02 12:02 | Emergency (ER) | payer OTHER ==
[2024-01-02 12:29] VITALS: RESP 18; TEMP 98.6; BMI 25.8
[2024-01-02] MEDS ORDERED: ACETAMINOPHEN INJECTION 100 ML IVPB ONE (13:23)
[2024-01-02] MEDS ORDERED: FAMOTIDINE 20 MG/50 ML IVPB 20 MG/50 ML MG IVPB ONE (13:23)
[2024-01-02] MEDS: ACETAMINOPHEN 1000 MG/100 ML BAG IVPB ONE (13:29)
[2024-01-02] MEDS: FAMOTIDINE 20 MG/50 ML IVPB 20 MG/50 ML MG IVPB ONE (13:30)
[2024-01-02] MEDS: NITROGLYCERIN 2% OINTMENT - 1GM PACKET TD ONE (13:31)
[2024-01-02 13:32] LABS: HEMATOCRIT 34.6 % (35.4-49); HEMOGLOBIN 11.4 GM/dL (11.7-16.9); LYMPH % 37.1 % (8-40); MCH 28.5 pg (25.7-33.7); MEAN CELL VOLUME 86.2 fl (80-96); MEAN PLT VOLUME 8.4 fl (7.5-11.1); NEUT % 44.9 % (42.8-82.8); PLATELET COUNT 387 10^3/uL (134-434); RBC 4.01 M/mm3 (4.00-5.60); WHITE BLOOD COUNT 11.1 K/mm3 (4.0-10.0)
[2024-01-02 13:48] LABS: POTASSIUM 5.5 mmol/L (3.5-5.1)
[2024-01-02 13:51] LABS: BLOOD UREA NITROGEN 29.7 mg/dL (7-18); CALCIUM 9.1 mg/dL (8.5-10.1); MAGNESIUM 1.8 mg/dL (1.8-2.4)
[2024-01-02 13:54] LABS: CREATININE 0.8 mg/dL (0.55-1.3); PHOSPHOROUS 3.8 mg/dL (2.5-4.9)
[2024-01-02 13:56] LABS: BILIRUBIN,TOTAL 0.3 mg/dL (0.2-1); TOT PROT 7.4 g/dl (6.4-8.2)
[2024-01-02 14:00] LABS: N-TERMINAL BNP 114.7 pg/ml (5-125)
[2024-01-02 14:03] LABS: INR 1.18 (0.83-1.09); PROTHROMBIN TIME (PATIENT) 13.7 SEC (9.7-13.0)
[2024-01-02 14:05] LABS: ACTIVATED PTT 35.8 SECONDS (25.2-36.5)
[2024-01-02] MEDS: SODIUM CHLORIDE 0.9% 500 ML INFUS.BAG IV ONE (14:50)
[2024-01-02 15:39] LABS: URINE APPEARANCE CLEAR; URINE BILIRUBIN NEGATIVE (NEGATIVE); URINE COLOR YELLOW; URINE GLUCOSE (UA) NEGATIVE (NEGATIVE); URINE KETONE NEGATIVE (NEGATIVE); URINE LEUK ESTERASE NEGATIVE (NEGATIVE); URINE NITRITE NEGATIVE (NEGATIVE); URINE PROTEIN NEGATIVE (NEGATIVE); URINE UROBILINOGEN 0.2 mg/dL (0.2-1.0)
[2024-01-02 16:01] VITALS: BP 109/75; PULSE 77
== END 2024-01-02 16:01 | disposition home or self-care (01) ==
LOC: JER 12:02
PROC: 3E033GC Introduction of Other Therapeutic Substance into Peripheral Vein, Percutaneous Approach (ICD-10-PCS; principal; 2024-01-02)
PROC: 3E033GC Introduction of Other Therapeutic Substance into Peripheral Vein, Percutaneous Approach (ICD-10-PCS; 2024-01-02)
DX: R07.9 Chest pain, unspecified (principal); R42 Dizziness and giddiness; R20.0 Anesthesia of skin; R10.13 Epigastric pain; R06.02 Shortness of breath; R00.2 Palpitations; Z20.822 Contact with and (suspected) exposure to COVID-19
CPT/HCPCS: 0241U-QW; 36415; 71045-TC-FY; 73130-TC-LT-FY; 80053; 81003; 83690; 83735; 83880; 84100; 84484; 85025; 85610; 85651; 85730; 86140; 87040; 87086; 93005; 93010; 99285-25; J0131

== ENCOUNTER 2024-12-12 13:23 | Inpatient (IN) | payer OTHER ==
[2024-12-12 13:40] VITALS: BMI 22.3
[2024-12-12] MEDS ORDERED: guaiFENesin 600 MG TABLET.ER (FP) PO PRN (14:47)
[2024-12-12] MEDS ORDERED: POLYETHYLENE GLYCOL (HEALTHYLAX) 3350 17 GM PACKET PO PRN (14:47)
[2024-12-12] MEDS ORDERED: MAGNESIUM HYDROX 2400MG/30ML ORAL SUSPENSION 30 ML CUP PO PRN (14:47)
[2024-12-12] MEDS ORDERED: ONDANSETRON *ODT* 4 MG TABLET SL PRN (14:47)
[2024-12-12] MEDS ORDERED: P-EPHED 60MG/TRIPROLIDI 2.5MG TABLET PO PRN (14:47)
[2024-12-12] MEDS ORDERED: NICOTINE POLACRILEX 2 MG LOZENGE BC PRN (14:47)
[2024-12-12] MEDS ORDERED: LOPERAMIDE HCL 2 MG CAPSULE PO PRN (14:47)
[2024-12-12] MEDS ORDERED: NICOTINE POLACRILEX 2 MG GUM BUC PRN (14:47)
[2024-12-12] MEDS ORDERED: MAG HYDROX/AL HYDROX/SIMETH 30 ML UNIT-DOSE CUP PO PRN (14:47)
[2024-12-12] MEDS ORDERED: BENZONATATE 200 MG CAPSULE PO PRN (14:47)
[2024-12-12] MEDS ORDERED: NALOXONE (NARCAN) HCL 4 MG/0.1 ML SPRAY NS PRN (14:47)
[2024-12-12] MEDS ORDERED: DICYCLOMINE HCL 10 MG CAPSULE PO PRN (14:47)
[2024-12-12] MEDS ORDERED: BENZOCAINE/MENTHOL (CHLORASEPTIC ) LOZENGE MM PRN (14:47)
[2024-12-12] MEDS: METHOCARBAMOL 500 MG TABLET PO PRN (17:14)
[2024-12-12] MEDS: diazePAM 5 MG TABLET PO SCH (17:15)
[2024-12-12] MEDS: INSULIN ASPART SLIDING SCALE (NOVOLOG) 1 VIAL SQ SCH (17:17)
[2024-12-12] MEDS: SILVER SULFADIAZINE 1% TOP CREAM 50 GM JAR TP SCH (17:50)
[2024-12-12] MEDS ORDERED: COLLAGENASE CLOSTRIDIUM HIST. 30 GRAMS TUBE TP SCH (21:00)
[2024-12-12] MEDS: ATORVASTATIN CA 40 MG TABLET (FP) PO SCH (22:01)
[2024-12-12] MEDS: TAMSULOSIN HCL 0.4 MG CAP PO SCH (22:01)
[2024-12-12] MEDS: APIXABAN 5 MG TABLET PO SCH (22:01)
[2024-12-12] MEDS: MONTELUKAST NA 10 MG TABLET PO SCH (22:01)
[2024-12-12] MEDS: GABAPENTIN 300 MG CAPSULE PO SCH (22:01)
[2024-12-12] MEDS: MELATONIN 5 MG TABLETS PO SCH (22:01)
[2024-12-12] MEDS: THIAMINE 100 MG TABLET PO SCH (22:01)
[2024-12-12] MEDS: BUDESONIDE/FORMETEROL FUMARATE 80/4.5 mcg INHALER IH SCH (22:02)
[2024-12-12] MEDS: QUEtiapine FUMARATE 25 MG TABLET PO ONE (22:03)
[2024-12-13] MEDS: ACETAMINOPHEN 325 MG TABLET (FP) PO PRN ×2 (03:22→13:28)
[2024-12-13] MEDS ORDERED: INSULIN (NOVOLOG) ASPART 100 UNITS/ML 10ML VIAL ONE ×2 (07:07→11:12)
[2024-12-13] MEDS ORDERED: methaDONE HCL 10 MG TABLET PO ONE (08:53)
[2024-12-13] MEDS: ASPIRIN 81 MG CHEWABLE TABLETS PO SCH (09:28)
[2024-12-13] MEDS: amLODIPine BESYLATE 10 MG TABLET (FP) PO SCH (09:28)
[2024-12-13] MEDS: PRENATAL VITAMINS W/ FOLIC ACID TABLET (FP) PO SCH (09:28)
[2024-12-13] MEDS: FOLIC ACID 1 MG TABLET (FP) PO SCH (09:29)
[2024-12-13 09:46] LABS: CHLORIDE 106 mmol/L (98-107); POTASSIUM 4.2 mmol/L (3.5-5.1); SODIUM 142 mmol/L (136-145)
[2024-12-13 09:47] LABS: HEMATOCRIT 34.3 % (35.4-49); HEMOGLOBIN 11.1 GM/dL (11.7-16.9); MCH 28.9 pg (25.7-33.7); MCHC 32.3 g/dl (32.0-35.9); MEAN CELL VOLUME 89.6 fl (80-96); PLATELET COUNT 332 10^3/uL (134-434); RBC 3.83 M/mm3 (4.00-5.60); RDW 16.7 % (11.9-15.9); WHITE BLOOD COUNT 9.7 K/mm3 (4.0-10.0)
[2024-12-13 09:54] LABS: ALBUMIN 2.9 g/dl (3.4-5.0)
[2024-12-13 09:57] LABS: BLOOD UREA NITROGEN 26.7 mg/dL (7-18)
[2024-12-13 09:58] LABS: ANION GAP 7 mmol/L (4-13); CO2 29 mmol/L (21-32); GLUCOSE,RANDOM 138 mg/dL (74-106)
[2024-12-13 10:00] LABS: CREATININE 1.1 mg/dL (0.55-1.3); SGOT/AST 15 U/L (15-37); SGPT/ALT 19 U/L (13-61)
[2024-12-13] MEDS ORDERED: CELECOXIB 100 MG CAPSULE PO SCH (10:00)
[2024-12-13 10:02] LABS: BILIRUBIN,TOTAL 0.1 mg/dL (0.2-1); TOT PROT 7.7 g/dl (6.4-8.2)
[2024-12-13 10:03] LABS: ALK PHOS 122 U/L (45-117)
[2024-12-13] MEDS: FLU VACCINE (FLULAVAL) PF 45 MCG/0.5 ML SYRINGE 2024-2025 IM ONE (12:07)
[2024-12-13] MEDS ORDERED: ACETAMINOPHEN 325 MG TABLET (FP) PO PRN (13:00)
[2024-12-13] MEDS: ALBUTEROL SO4 HFA INHALER IH PRN (17:35)
[2024-12-13] MEDS: QUEtiapine FUMARATE 100 MG TABLET (FP) PO SCH (22:06)
[2024-12-13] MEDS: INSULIN (LEVEMIR) 100 UNITS/ML UNITS SQ SCH (22:06)
[2024-12-14] MEDS: diazePAM 5 MG TABLET PO SCH (05:45)
[2024-12-14] MEDS ORDERED: methaDONE HCL 10 MG TABLET PO SCH (06:00)
[2024-12-14] MEDS: diazePAM 5 MG TABLET PO PRN (09:58)
[2024-12-14] MEDS ORDERED: INSULIN (NOVOLOG) ASPART 100 UNITS/ML 10ML VIAL ONE ×2 (17:44→22:27)
[2024-12-14] MEDS: CEPHALEXIN MONOHYDRATE 500 MG CAPSULE (UD) PO SCH (22:29)
[2024-12-15] MEDS: diazePAM 5 MG TABLET PO SCH (06:15)
[2024-12-15 09:10] VITALS: RESP 18
[2024-12-15 13:39] VITALS: BP 120/58; PULSE 104; TEMP 101
[2024-12-15] MEDS: INSULIN REGULAR HUMAN 100 UNITS/ML *VIAL IVPUSH ONE (22:25)
[2024-12-16] MEDS ORDERED: diazePAM 5 MG TABLET PO ONE (06:00)
== END 2024-12-16 01:09 | disposition short-term general hospital (02) | DRG 773 ==
LOC: YASAS 13:23 → Y6N 15:37
PROVIDERS: ADMIT Allergy & Immunology; ATTEND Allergy & Immunology
PROC: HZ2ZZZZ Detoxification Services for Substance Abuse Treatment (ICD-10-PCS; principal; 2024-12-12)
DX: F10.230 Alcohol dependence with withdrawal, uncomplicated (principal); F11.10 Opioid abuse, uncomplicated; F14.20 Cocaine dependence, uncomplicated; F17.210 Nicotine dependence, cigarettes, uncomplicated; F19.282 Other psychoactive substance dependence with psychoactive substance-induced sleep disorder; F19.280 Other psychoactive substance dependence with psychoactive substance-induced anxiety disorder; F19.24 Other psychoactive substance dependence with psychoactive substance-induced mood disorder; I10 Essential (primary) hypertension; J43.0 Unilateral pulmonary emphysema [MacLeod's syndrome]; L97.519 Non-pressure chronic ulcer of other part of right foot with unspecified severity; E11.9 Type 2 diabetes mellitus without complications; Z79.4 Long term (current) use of insulin; R50.9 Fever, unspecified; R41.82 Altered mental status, unspecified; R63.6 Underweight; Z68.22 Body mass index [BMI] 22.0-22.9, adult; Z88.8 Allergy status to other drugs, medicaments and biological substances; Z91.041 Radiographic dye allergy status; Z86.718 Personal history of other venous thrombosis and embolism; Z79.01 Long term (current) use of anticoagulants
CPT/HCPCS: 36415; 80053; 80305; 80307; 82962; 85027; 86780; 90656; 93005; 93010; G0008

== ENCOUNTER 2024-12-20 16:54 | Inpatient (IN) | payer OTHER ==
[2024-12-20 17:06] VITALS: BMI 22.3
[2024-12-20] MEDS ORDERED: ALBUTEROL SO4 HFA INHALER IH PRN (17:10)
[2024-12-20] MEDS ORDERED: BENZONATATE 200 MG CAPSULE PO PRN (19:30)
[2024-12-20] MEDS ORDERED: guaiFENesin 600 MG TABLET.ER (FP) PO PRN (19:30)
[2024-12-20] MEDS ORDERED: BENZOCAINE/MENTHOL (CHLORASEPTIC ) LOZENGE MM PRN (19:30)
[2024-12-20] MEDS ORDERED: NALOXONE (NARCAN) HCL 4 MG/0.1 ML SPRAY NS PRN (19:30)
[2024-12-20] MEDS ORDERED: NALOXONE HCL 0.4 MG/ML VIAL IVPUSH PRN (19:30)
[2024-12-20] MEDS ORDERED: P-EPHED 60MG/TRIPROLIDI 2.5MG TABLET PO PRN (19:30)
[2024-12-20] MEDS ORDERED: MAGNESIUM HYDROX 2400MG/30ML ORAL SUSPENSION 30 ML CUP PO PRN (19:30)
[2024-12-20] MEDS ORDERED: POLYETHYLENE GLYCOL (HEALTHYLAX) 3350 17 GM PACKET PO PRN (19:30)
[2024-12-20] MEDS ORDERED: MAG HYDROX/AL HYDROX/SIMETH 30 ML UNIT-DOSE CUP PO PRN (19:30)
[2024-12-20] MEDS ORDERED: NICOTINE POLACRILEX 2 MG LOZENGE BC PRN (19:30)
[2024-12-20] MEDS ORDERED: LOPERAMIDE HCL 2 MG CAPSULE PO PRN (19:30)
[2024-12-20] MEDS: APIXABAN 5 MG TABLET PO SCH (21:41)
[2024-12-20] MEDS: MELATONIN 5 MG TABLETS PO SCH (21:41)
[2024-12-20] MEDS: ATORVASTATIN CA 40 MG TABLET (FP) PO SCH (21:41)
[2024-12-20] MEDS: BUDESONIDE/FORMETEROL FUMARATE 160/4.5 mcg INHALER IH SCH (21:42)
[2024-12-20] MEDS: TAMSULOSIN HCL 0.4 MG CAP PO SCH (21:42)
[2024-12-20] MEDS: MONTELUKAST NA 10 MG TABLET PO SCH (21:42)
[2024-12-20] MEDS: THIAMINE 100 MG TABLET PO SCH (21:42)
[2024-12-20] MEDS ORDERED: CLINDAMYCIN HCL 300 MG CAPSULE PO SCH (22:00)
[2024-12-20] MEDS: CLINDAMYCIN HCL 150 MG CAPSULE (FP) PO SCH (23:29)
[2024-12-20] MEDS: SACUBITRIL/VALSARTAN 24 MG-26 MG TABLET PO SCH (23:29)
[2024-12-21] MEDS: ACETAMINOPHEN 325 MG TABLET (FP) PO PRN (05:50)
[2024-12-21] MEDS ORDERED: METHADONE PO SCH (06:00)
[2024-12-21] MEDS ORDERED: methaDONE HCL 40 MG DISPERSABLE TABLET PO SCH (06:00)
[2024-12-21] MEDS: metFORMIN HCL 500 MG TABLET (FP) PO SCH (06:16)
[2024-12-21] MEDS: PRENATAL VITAMINS W/ FOLIC ACID TABLET (FP) PO SCH (09:51)
[2024-12-21] MEDS: FOLIC ACID 1 MG TABLET (FP) PO SCH (09:51)
[2024-12-21] MEDS: TIOTROPIUM BROMIDE 2.5 MCG (SPIRIVA) RESPIMAT INHALER IH SCH (09:51)
[2024-12-21] MEDS: EPLERENONE 25 MG TABLET PO SCH (09:52)
[2024-12-21] MEDS: EMPAGLIFLOZIN (JARDIANCE) 10 MG TABLET PO SCH (09:52)
[2024-12-21] MEDS: METHOCARBAMOL 500 MG TABLET PO PRN (09:53)
[2024-12-21] MEDS ORDERED: [UNRECOGNIZED DRUG - OTHER] IH SCH (10:00)
[2024-12-21] MEDS ORDERED: hydrOXYzine PAMOATE 25 MG CAPSULE (FP) PO PRN (10:38)
[2024-12-21] MEDS: FERROUS SO4 325 MG TABLET (FP) PO SCH (13:22)
[2024-12-21] MEDS: BACLOFEN 10 MG TABLET (FP) PO SCH (13:22)
[2024-12-21] MEDS: METHYL SALICYLATE/MENTHOL 30 GM TUBE TP SCH (13:23)
[2024-12-21] MEDS: SUVOREXANT 5 MG TABLET PO PRN (21:14)
[2024-12-23] MEDS: busPIRone HCL 10 MG TABLET (FP) PO SCH (13:04)
[2024-12-24] MEDS ORDERED: methaDONE HCL 40 MG DISPERSABLE TABLET PO SCH (08:42)
[2024-12-24] MEDS ORDERED: ATORVASTATIN CA 20 MG TABLET (FP) ONE (21:34)
[2024-12-24] MEDS: SUVOREXANT 5 MG TABLET PO PRN (21:36)
[2024-12-25] MEDS: LIDOCAINE 5% TOPICAL PATCH TP SCH (13:38)
[2024-12-25] MEDS: GABAPENTIN 100 MG CAPSULE PO SCH (13:39)
[2024-12-25] MEDS: LIDOCAINE PATCH REMOVAL MC SCH (21:28)
[2024-12-27] MEDS: SUVOREXANT 10 MG TABLET PO PRN (21:25)
[2024-12-27] MEDS ORDERED: SUVOREXANT 10 MG TABLET PO PRN (22:00)
[2024-12-28 11:22] LABS: POTASSIUM 5.4 mmol/L (3.5-5.1)
[2024-12-28 11:26] LABS: ALBUMIN 3.1 g/dl (3.4-5.0); BLOOD UREA NITROGEN 40.7 mg/dL (7-18); CALCIUM 9.2 mg/dL (8.5-10.1)
[2024-12-28 11:31] LABS: BILIRUBIN,TOTAL 0.2 mg/dL (0.2-1)
[2024-12-28 11:32] LABS: TOT PROT 7.8 g/dl (6.4-8.2)
[2024-12-28 11:38] LABS: BASO % 0.8 % (0-2.0); EOS % 3.4 % (0-4.5); HEMATOCRIT 35.1 % (35.4-49); HEMOGLOBIN 10.8 GM/dL (11.7-16.9); LYMPH % 39.7 % (8-40); MCH 27.8 pg (25.7-33.7); MCHC 30.7 g/dl (32.0-35.9); MEAN CELL VOLUME 90.7 fl (80-96); MEAN PLT VOLUME 8.7 fl (7.5-11.1); MONO % 10.4 % (3.8-10.2); NEUT % 45.7 % (42.8-82.8); PLATELET COUNT 657 10^3/uL (134-434); RBC 3.87 M/mm3 (4.00-5.60); RDW 17.9 % (11.9-15.9); WHITE BLOOD COUNT 10.8 K/mm3 (4.0-10.0)
[2024-12-28] MEDS: SODIUM POLYSTYRENE SULFONATE 15 GM/60 ML BOTTLE PO SCH (14:51)
[2024-12-28] MEDS: SUVOREXANT 10 MG TABLET PO PRN (21:11)
[2024-12-29] MEDS: methaDONE HCL 40 MG DISPERSABLE TABLET PO SCH (05:31)
[2024-12-31] MEDS: SUVOREXANT 10 MG TABLET PO PRN (21:19)
[2025-01-01] MEDS: DOCUSATE SODIUM 100 MG CAPSULE (FP) PO PRN (21:10)
[2025-01-03] MEDS: SUVOREXANT 10 MG TABLET PO PRN (21:12)
[2025-01-04] MEDS: SUVOREXANT 10 MG TABLET PO PRN (21:16)
[2025-01-07] MEDS ORDERED: SUVOREXANT 10 MG TABLET PO PRN (22:00)
[2025-01-08] MEDS: MELATONIN 5 MG TABLETS PO SCH (21:17)
[2025-01-09] MEDS: TAMSULOSIN HCL 0.4 MG CAP PO SCH (21:20)
[2025-01-09] MEDS: GABAPENTIN 300 MG CAPSULE PO SCH (21:22)
[2025-01-10] MEDS: CLINDAMYCIN PHOSPHATE 1% TOPICAL GEL 30 GM TUBE TP SCH (14:33)
[2025-01-12] MEDS: TAMSULOSIN HCL 0.4 MG CAP PO SCH (21:35)
[2025-01-13] MEDS: NICOTINE POLACRILEX 2 MG GUM BUC PRN (08:55)
[2025-01-15 05:46] VITALS: BP 127/75; PULSE 75; RESP 17; TEMP 97.3
== END 2025-01-15 11:43 | disposition home or self-care (01) | DRG 772 ==
LOC: YASAS 16:54 → Y3W 19:40
PROVIDERS: ADMIT Psychiatry & Neurology Pain Medicine; ATTEND Psychiatry & Neurology Pain Medicine
PROC: HZ42ZZZ Group Counseling for Substance Abuse Treatment, Cognitive-Behavioral (ICD-10-PCS; principal; 2024-12-20)
DX: F10.20 Alcohol dependence, uncomplicated (principal); F14.20 Cocaine dependence, uncomplicated; F11.20 Opioid dependence, uncomplicated; F17.210 Nicotine dependence, cigarettes, uncomplicated; F31.9 Bipolar disorder, unspecified; F19.282 Other psychoactive substance dependence with psychoactive substance-induced sleep disorder; F19.280 Other psychoactive substance dependence with psychoactive substance-induced anxiety disorder; E78.5 Hyperlipidemia, unspecified; E11.9 Type 2 diabetes mellitus without complications; Z79.84 Long term (current) use of oral hypoglycemic drugs; I11.0 Hypertensive heart disease with heart failure; I50.9 Heart failure, unspecified; J44.9 Chronic obstructive pulmonary disease, unspecified; B18.2 Chronic viral hepatitis C; L03.115 Cellulitis of right lower limb; M54.50 Low back pain, unspecified; G89.29 Other chronic pain; N40.0 Benign prostatic hyperplasia without lower urinary tract symptoms; Z86.718 Personal history of other venous thrombosis and embolism; Z79.01 Long term (current) use of anticoagulants; Z87.19 Personal history of other diseases of the digestive system; Z88.8 Allergy status to other drugs, medicaments and biological substances; Z59.01 Sheltered homelessness
CPT/HCPCS: 36415; 80053; 80305; 80307; 82962; 84132; 85025; 93005; 93010; J0475